=== PATIENT | male | born 1965 | race Caucasian/White ===

== ENCOUNTER 2016-08-06 21:11 | Inpatient (IN) | payer OTHER ==
[2016-08-06 22:00] VITALS: BMI 29.5
--- NOTE | 2016-08-06 22:04 | HP ---
CIWA Score - CIWA Score Nausea/Vomitin-Mild Nausea/No Vomiting Muscle Tremors: 3 Anxiety: 4-Mod. Anxious/Guarded Agitation: 4-Moderately Restless Paroxysmal Sweats: 2 Orientation: 1-Uncertain about Date Tacttile Disturbances: 2-Mild Itch/Numbness/Burn (B/L FINDERTIPS AND FEET) Auditory Disturbances: 1-Very Mild Visual Disturbances: 1-Very Mild Sensitivity Headache: 2-Mild CIWA-Ar Total Score: 21 Admission ROS S - HPI Chief Complaint: WITHDRAWAL SYMPTOMS Allergies/Adverse Reactions: Allergies Allergy/AdvReac Type Severity Reaction Status Date / Time No Known Allergies Allergy Verified 08/06/16 21:57 History of Present Illness: 50 Y.O. WITH AN EXTENSIVE HISTORY OF ALCOHOL DEPENDENCE IS SEEKING DETOX. HE WAS LAST HERE FOR DETOX IN 11/2014. HE REPORTS HAVING A FOUR YEAR PERIOD OF SOBRIETY. Exam Limitations: Intoxication, Language Barrier - Ebola screening Have you traveled outside of the country in the last 21 days: No Have you had contact with anyone from an Ebola affected area: No Do you have a fever: No - Review of Systems Constitutional: Loss of Appetite, Night Sweats, Changes in sleep, Unexplained wgt Loss EENT: reports: Blurred Vision, Tearing Respiratory: reports: Shortness of Breath Cardiac: reports: Chest Pain GI: reports: No Symptoms Reported : reports: Frequency Musculoskeletal: reports: Back Pain, Muscle Pain, Joint Stiffness Integumentary: reports: Bruising (ABRASIONS TO RIGHT HAND AND RIGHT KNEE AND BRUISE TO LEFT KNEE) Neuro: reports: Headache, Tingling, Tremors, Unsteady Gait Endocrine: reports: No Symptoms Reported Hematology: reports: Anemia Psychiatric: reports: Mood/Affect Appropiate Other Systems: Reviewed and Negative Patient History - Patient Medical History Hx Anemia: No Hx Asthma: No Hx Chronic Obstructive Pulmonary Disease (COPD): No Hx Cancer: No Hx Cardiac Disorders: No Hx Congestive Heart Failure: No Hx Hypertension: Yes (no meds) Hx Hypercholesterolemia: No Hx Pacemaker: No HX Cerebrovascular Accident: No Hx Seizures: No Hx Dementia: No Hx Diabetes: Yes (currently not on treatment) Hx Gastrointestinal Disorders: No Hx Liver Disease: No Hx Genitourinary Disorders: No Hx Sexually Transmitted Disorders: No Hx Renal Disease (ESRD): No Hx Thyroid Disease: No Hx Human Immunodeficiency Virus (HIV): No (2008- neg) Hx Hepatitis C: No Hx Depression: No Hx Suicide Attempt: No Hx Bipolar Disorder: No Hx Schizophrenia: No - Patient Surgical History Past Surgical History: No Hx Neurologic Surgery: No Hx Cataract Extraction: No Hx Cardiac Surgery: No Hx Lung Surgery: No Hx Breast Surgery: No Hx Breast Biopsy: No Hx Abdominal Surgery: No Hx Appendectomy: No Hx Cholecystectomy: No Hx Genitourinary Surgery: No Hx Section: No Hx Orthopedic Surgery: No Hx Hysterectomy: No Anesthesia Reaction: No - PPD History Previous Implant?: Yes Documented Results: Negative w/proof Date: 11/23/14 Results: 0 mm PPD to be Administered?: Yes - Reproductive History Patient is a Female of Child Bearing Age (11 -55 yrs old): No - Smoking Cessation Smoking history: Never smoked Have you smoked in the past 12 months: No Aproximately how many cigarettes per day: 0 Cigars Per Day: 0 Hx Chewing Tobacco Use: No - Substance & Tx. History Hx Alcohol Use: Yes Hx Substance Use: No Substance Use Type: Alcohol Hx Substance Use Treatment: Yes (DETOX AND REHAB ) - Substances Abused Alcohol Route: Oral Frequency: Daily Amount used: 6 PACK OF 12OZ BEER Age of first use: 12 Date of Last Use: 08/06/16 Family Disease History - Family Disease History Family Disease History: Other: Father (ETOH DEPENDENCE ) Admission Physical Exam [facility] - Vital Signs Vital Signs: Last Vital Signs Temp Pulse Resp BP Pulse Ox 97.5 F L 90 17 112/60 08/06/16 21:58 08/06/16 21:58 08/06/16 21:58 08/06/16 21:58 - Physical General Appearance: Yes: Disheveled, Alcohol on Breath, Intoxicated, Anxious HEENTM: Yes: Normal Voice Respiratory: Yes: Chest Non-Tender, Lungs Clear, Normal Breath Sounds, No Respiratory Distress, No Accessory Muscle Use Neck: Yes: No masses,lesions,Nodules, Trachea in good position Breast: Yes: Breast Exam Deferred Cardiology: Yes: Regular Rhythm, Regular Rate Abdominal: Yes: Non Tender, Flat, Soft Genitourinary: Yes: Frequency Back: Yes: Normal Inspection Musculoskeletal: Yes: Joint Stiffness (RIGHT KNEE) Extremities: Yes: Tremors Neurological: Yes: Alert, Normal Response Integumentary: Yes: Other Lymphatic: Yes: Within Normal Limits - Diagnostic (1) DM Diabetes mellitus type 2 Current Visit: Yes Status: Chronic (2) HTN (hypertension) Current Visit: Yes Status: Chronic (3) Alcohol dependence with uncomplicated withdrawal Current Visit: Yes Status: Chronic (4) Knee abrasion Current Visit: Yes Status: Acute Qualifiers: Laterality: right (5) Hand abrasion Current Visit: Yes Status: Acute Qualifiers: Laterality: right Cleared for Admission S - Detox or Rehab S Level of Care: Medically Managed Detox Regimen/Protocol: Librium
[2016-08-06] MEDS ORDERED: ACETAMINOPHEN 325 MG TABLET (FP) PO PRN (22:21)
[2016-08-06] MEDS ORDERED: LOPERAMIDE HCL 2 MG CAPSULE PO PRN (22:21)
[2016-08-06] MEDS ORDERED: MENTHOL/PHENOL 1 EACH UD MM PRN (22:21)
[2016-08-06] MEDS ORDERED: P-EPHED 60MG/TRIPROLIDI 2.5MG TABLET PO PRN (22:21)
[2016-08-06] MEDS ORDERED: hydrOXYzine PAMOATE 50 MG CAPSULE (FP) PO PRN (22:21)
[2016-08-06] MEDS ORDERED: chlordiazePOXIDE HCL 25 MG CAPSULE PO PRN (22:21)
[2016-08-06] MEDS ORDERED: guaiFENesin/D-METHORPHAN HB 10 ML UNIT-DOSE CUPS PO PRN (22:21)
[2016-08-06] MEDS ORDERED: MAGNESIUM HYDROX 2400MG/30ML ORAL SUSPENSION 30 ML CUP PO PRN (22:21)
[2016-08-06] MEDS ORDERED: MAGNESIUM CITRATE 300 ML BOTTLE PO PRN (22:21)
[2016-08-06] MEDS ORDERED: IBUPROFEN 400 MG TABLET (FP) PO PRN (22:21)
[2016-08-06] MEDS ORDERED: MAG HYDROX/AL HYDROX/SIMETH 30 ML UNIT-DOSE CUP PO PRN (22:21)
[2016-08-06] MEDS ORDERED: chlordiazePOXIDE HCL 25 MG CAPSULE PO ONE (22:21)
[2016-08-06] MEDS: chlordiazePOXIDE HCL 25 MG CAPSULE PO SCH (22:50)
[2016-08-06] MEDS ORDERED: BACITRACIN 0.9 GM PACKET ONE (22:52)
[2016-08-06] MEDS: BACITRACIN 30 GM TUBE TOPICAL OINTMENT TP SCH (22:53)
[2016-08-07] MEDS: chlordiazePOXIDE HCL 25 MG CAPSULE PO SCH ×4 (05:47→22:14)
[2016-08-07] MEDS ORDERED: INSULIN (NOVOLOG) ASPART 100 UNITS/ML 10ML VIAL ONE ×2 (06:36→16:58)
[2016-08-07] MEDS: metFORMIN HCL 500 MG TABLET (FP) PO SCH ×2 (06:51→17:17)
[2016-08-07] MEDS: INSULIN SLIDING SCALE (NOVOLOG) 1 VIAL SQ SCH ×2 (06:52→17:17)
[2016-08-07] MEDS: PRENATAL VITAMINS W/ FOLIC ACID TABLET (FP) PO SCH (10:06)
[2016-08-07] MEDS: BACITRACIN 30 GM TUBE TOPICAL OINTMENT TP SCH ×2 (10:06→23:13)
[2016-08-07] MEDS: ENALAPRIL MALEATE 5 MG TABLET (FP) PO SCH (10:06)
--- NOTE | 2016-08-07 10:45 | PN ---
S CIWA - CIWA Score Nausea/Vomitin-No Nausea/No Vomiting Muscle Tremors: 5 Anxiety: 4-Mod. Anxious/Guarded Agitation: 4-Moderately Restless Paroxysmal Sweats: 1-Minimal Palms Moist Orientation: 0-Oriented Tacttile Disturbances: 3-Moderate Itch/Numb/Burn Auditory Disturbances: 0-None Visual Disturbances: 0-None Headache: 0-None Present CIWA-Ar Total Score: 17 BHS Progress Note (SOAP) Subjective: TREMORS,SWEATS,INTERMITTENT SLEEP Objective: 08/07/16 10:44 Vital Signs Temperature 97.7 F 08/07/16 09:58 Pulse Rate 101 H 08/07/16 09:58 Respiratory Rate 18 08/07/16 09:58 Blood Pressure 130/73 08/07/16 09:58 O2 Sat by Pulse Oximetry (%) Laboratory Last Values POC Glucometer 255 UNITS (()) 08/07/16 05:49 LABS PENDING. Assessment: 08/07/16 10:45 WITHDRAWAL SX Plan: CONTINUE DETOX
--- NOTE | 2016-08-07 11:24 | EKG ---
Test Reason : Blood Pressure : / mmHG Vent. Rate : 074 BPM Atrial Rate : 074 BPM P-R Int : 168 ms QRS Dur : 102 ms QT Int : 410 ms P-R-T Axes : 004 053 017 degrees QTc Int : 455 ms NORMAL SINUS RHYTHM NON-SPECIFIC INTRA-VENTRICULAR CONDUCTION DELAY Confirmed by EDA WONG MD ([id number]) on 08/07/2016 11:23:38 AM Referred By: Confirmed By:EDA WONG MD
[2016-08-07 11:31] LABS: MCH 29.3 pg (25.7-33.7); MCHC 32.6 g/dl (32.0-35.9); MEAN CELL VOLUME 89.9 fl (80-96); MEAN PLT VOLUME 9.4 fl (7.5-11.1); RDW 17.9 % (11.9-15.9); WHITE BLOOD COUNT 5.8 K/mm3 (4.0-10.0)
[2016-08-07 11:35] LABS: PLATELET COUNT 36 K/MM3 (134-434)
[2016-08-07 11:53] LABS: ALBUMIN 2.7 g/dl (3.4-5.0); ALK PHOS 325 U/L (45-117); ANION GAP 11 (8-16); CALCIUM 7.8 mg/dL (8.5-10.1); CO2 25 mmol/L (21-32); COCKROFT - GAULT 190.71; CREATININE 0.5 mg/dL (0.7-1.3); GLUCOSE,RANDOM 172 mg/dL (74-106); SGOT/AST 141 U/L (15-37); SGPT/ALT 50 U/L (12-78); TOT PROT 7.7 g/dl (6.4-8.2)
[2016-08-07] MEDS: THIAMINE HCL 100 MG TABLET (FP) PO SCH (22:14)
[2016-08-08] MEDS: chlordiazePOXIDE HCL 25 MG CAPSULE PO SCH ×3 (05:20→17:27)
[2016-08-08] MEDS: metFORMIN HCL 500 MG TABLET (FP) PO SCH ×2 (06:11→17:27)
[2016-08-08] MEDS: INSULIN SLIDING SCALE (NOVOLOG) 1 VIAL SQ SCH ×2 (06:12→17:27)
[2016-08-08] MEDS ORDERED: INSULIN (NOVOLOG) ASPART 100 UNITS/ML 10ML VIAL ONE ×2 (06:15→17:04)
[2016-08-08] MEDS ORDERED: POTASSIUM CHLORIDE TABS 20 MEQ TABLET.ER (FP) PO ONE (07:14)
--- NOTE | 2016-08-08 07:22 | PN ---
[facility] Progress Note Note: Laboratory Last Values WBC 5.8 K/mm3 (4.0-10.0) D 08/07/16 07:00 RBC 4.16 M/mm3 (4.00-5.60) 08/07/16 07:00 Hgb 12.2 GM/dL (11.7-16.9) 08/07/16 07:00 Hct 37.4 % (35.4-49) 08/07/16 07:00 MCV 89.9 fl (80-96) 08/07/16 07:00 MCHC 32.6 g/dl (32.0-35.9) 08/07/16 07:00 RDW 17.9 % (11.9-15.9) H D 08/07/16 07:00 Plt Count 36 K/MM3 (134-434) L* D 08/07/16 07:00 MPV 9.4 fl (7.5-11.1) 08/07/16 07:00 Sodium 141 mmol/L (136-145) 08/07/16 07:00 Potassium 3.2 mmol/L (3.5-5.1) L 08/07/16 07:00 Chloride 105 mmol/L (98-107) 08/07/16 07:00 Carbon Dioxide 25 mmol/L (21-32) 08/07/16 07:00 Anion Gap 11 (8-16) 08/07/16 07:00 BUN 5 mg/dL (7-18) L D 08/07/16 07:00 Creatinine 0.5 mg/dL (0.7-1.3) L 08/07/16 07:00 Creat Clearance w eGFR > 60 (>60) 08/07/16 07:00 POC Glucometer 183 UNITS (()) 08/08/16 05:19 Random Glucose 172 mg/dL (74-106) H D 08/07/16 07:00 Calcium 7.8 mg/dL (8.5-10.1) L 08/07/16 07:00 Total Bilirubin 1.0 mg/dL (0.2-1.0) D 08/07/16 07:00 AST 141 U/L (15-37) H 08/07/16 07:00 ALT 50 U/L (12-78) 08/07/16 07:00 Alkaline Phosphatase 325 U/L (45-117) H 08/07/16 07:00 Total Protein 7.7 g/dl (6.4-8.2) 08/07/16 07:00 Albumin 2.7 g/dl (3.4-5.0) L 08/07/16 07:00 RPR Titer Nonreactive (NONREACTIVE) 08/07/16 07:00 hypokalemia k 3.2,plaelet 36k,glucose 172,ast 141 k dur 20 meq po bid then bid.repeat cbc,cmp,inr today continue detox
[2016-08-08] MEDS ORDERED: BACITRACIN 0.9 GM PACKET ONE (08:22)
[2016-08-08] MEDS: PRENATAL VITAMINS W/ FOLIC ACID TABLET (FP) PO SCH (10:13)
[2016-08-08] MEDS: ENALAPRIL MALEATE 5 MG TABLET (FP) PO SCH (10:13)
[2016-08-08] MEDS: BACITRACIN 30 GM TUBE TOPICAL OINTMENT TP SCH ×2 (10:14→22:15)
[2016-08-08] MEDS: POTASSIUM CHLORIDE TABS 20 MEQ TABLET.ER (FP) PO SCH ×2 (10:14→22:15)
[2016-08-08 10:24] LABS: MCH 29.5 pg (25.7-33.7); MCHC 33.1 g/dl (32.0-35.9); MEAN CELL VOLUME 89.1 fl (80-96); MEAN PLT VOLUME 9.6 fl (7.5-11.1); RDW 17.3 % (11.9-15.9); WHITE BLOOD COUNT 6.7 K/mm3 (4.0-10.0)
[2016-08-08 10:41] LABS: INR 1.22 (0.82-1.09); PROTHROMBIN TIME (PATIENT) 13.5 SEC (9.98-11.88)
[2016-08-08 10:50] LABS: PLATELET COUNT 32 K/MM3 (134-434)
[2016-08-08 11:24] LABS: ALBUMIN 2.8 g/dl (3.4-5.0); ALK PHOS 333 U/L (45-117); ANION GAP 9 (8-16); BILIRUBIN,TOTAL 2.7 mg/dL (0.2-1.0); CALCIUM 8.5 mg/dL (8.5-10.1); CO2 25 mmol/L (21-32); COCKROFT - GAULT 190.71; CREATININE 0.5 mg/dL (0.7-1.3); GLUCOSE,RANDOM 185 mg/dL (74-106); SGOT/AST 165 U/L (15-37); SGPT/ALT 56 U/L (12-78); TOT PROT 8.2 g/dl (6.4-8.2)
--- NOTE | 2016-08-08 13:08 | PN ---
S CIWA - CIWA Score Nausea/Vomitin Muscle Tremors: 3 Anxiety: 2 Agitation: 2 Paroxysmal Sweats: 2 Orientation: 0-Oriented Tacttile Disturbances: 1-Very Mild Itch/Numbness Auditory Disturbances: 0-None Visual Disturbances: 1-Very Mild Sensitivity Headache: 2-Mild CIWA-Ar Total Score: 15 S Progress Note (SOAP) Subjective: shakes, sweats, sleep interruption Objective: 08/08/16 13:04 Vital Signs - 8 hr 08/08/16 08/08/16 06:45 09:45 Temperature 98.4 F 96.4 F L Pulse Rate 95 H 111 H Respiratory 16 18 Rate Blood Pressure 130/83 118/79 Laboratory Last Values WBC 6.7 K/mm3 (4.0-10.0) 08/08/16 07:50 RBC 4.55 M/mm3 (4.00-5.60) 08/08/16 07:50 Hgb 13.4 GM/dL (11.7-16.9) 08/08/16 07:50 Hct 40.5 % (35.4-49) 08/08/16 07:50 MCV 89.1 fl (80-96) 08/08/16 07:50 MCHC 33.1 g/dl (32.0-35.9) 08/08/16 07:50 RDW 17.3 % (11.9-15.9) H 08/08/16 07:50 Plt Count 32 K/MM3 (134-434) L* 08/08/16 07:50 MPV 9.6 fl (7.5-11.1) 08/08/16 07:50 INR 1.22 (0.82-1.09) H 08/08/16 07:50 Sodium 135 mmol/L (136-145) L 08/08/16 07:50 Potassium 3.7 mmol/L (3.5-5.1) 08/08/16 07:50 Chloride 101 mmol/L (98-107) 08/08/16 07:50 Carbon Dioxide 25 mmol/L (21-32) 08/08/16 07:50 Anion Gap 9 (8-16) 08/08/16 07:50 BUN 7 mg/dL (7-18) D 08/08/16 07:50 Creatinine 0.5 mg/dL (0.7-1.3) L 08/08/16 07:50 Creat Clearance w eGFR > 60 (>60) 08/08/16 07:50 POC Glucometer 183 UNITS (()) 08/08/16 05:19 Random Glucose 185 mg/dL (74-106) H 08/08/16 07:50 Calcium 8.5 mg/dL (8.5-10.1) 08/08/16 07:50 Total Bilirubin 2.7 mg/dL (0.2-1.0) H D 08/08/16 07:50 AST 165 U/L (15-37) H 08/08/16 07:50 ALT 56 U/L (12-78) 08/08/16 07:50 Alkaline Phosphatase 333 U/L (45-117) H 08/08/16 07:50 Total Protein 8.2 g/dl (6.4-8.2) 08/08/16 07:50 Albumin 2.8 g/dl (3.4-5.0) L 08/08/16 07:50 RPR Titer Nonreactive (NONREACTIVE) 08/07/16 07:00 Labs noted, platelets decreased but not critically, no signs and symptoms of bleeding, VSS Assessment: 08/08/16 13:05 withdrawal sx possible ITP Plan: continue detox monitor for bleeding, f/u with PCP upon discharge, transfer to ED if bleeding occurs
[2016-08-08] MEDS: THIAMINE HCL 100 MG TABLET (FP) PO SCH (22:15)
[2016-08-08] MEDS: chlordiazePOXIDE 5 MG CAPSULE PO SCH (22:16)
[2016-08-08] MEDS: diphenhydrAMINE HCL 50 MG CAPSULE PO PRN (22:17)
[2016-08-09] MEDS: chlordiazePOXIDE 5 MG CAPSULE PO SCH ×3 (05:57→17:21)
[2016-08-09] MEDS: metFORMIN HCL 500 MG TABLET (FP) PO SCH ×2 (07:24→17:21)
[2016-08-09] MEDS ORDERED: INSULIN (NOVOLOG) ASPART 100 UNITS/ML 10ML VIAL ONE ×2 (07:27→17:02)
[2016-08-09] MEDS: INSULIN SLIDING SCALE (NOVOLOG) 1 VIAL SQ SCH ×2 (07:29→17:21)
[2016-08-09] MEDS: BACITRACIN 30 GM TUBE TOPICAL OINTMENT TP SCH ×2 (10:13→22:26)
[2016-08-09] MEDS: PRENATAL VITAMINS W/ FOLIC ACID TABLET (FP) PO SCH (10:13)
[2016-08-09] MEDS: POTASSIUM CHLORIDE TABS 20 MEQ TABLET.ER (FP) PO SCH ×2 (10:13→22:26)
[2016-08-09] MEDS: ENALAPRIL MALEATE 5 MG TABLET (FP) PO SCH (10:13)
--- NOTE | 2016-08-09 15:41 | PN ---
S Progress Note (SOAP) Subjective: Diarrhea, sweating, anxious, interrupted sleep Objective: 08/09/16 15:37 Last Vital Signs Temp Pulse Resp BP Pulse Ox 96.5 F L 107 H 18 112/74 08/09/16 13:22 08/09/16 13:22 08/09/16 13:22 08/09/16 13:22 Laboratory Tests 08/06/16 08/07/16 08/07/16 21:53 05:49 07:00 WBC 5.8 D RBC 4.16 Hgb 12.2 Hct 37.4 MCV 89.9 MCHC 32.6 RDW 17.9 H D Plt Count 36 L* D MPV 9.4 INR Sodium Potassium Chloride Carbon Dioxide Anion Gap BUN Creatinine Creat Clearance w eGFR POC Glucometer 326 255 Random Glucose Calcium Total Bilirubin AST ALT Alkaline Phosphatase Total Protein Albumin RPR Titer 08/07/16 08/07/16 08/07/16 07:00 07:00 16:22 WBC RBC Hgb Hct MCV MCHC RDW Plt Count MPV INR Sodium 141 Potassium 3.2 L Chloride 105 Carbon Dioxide 25 Anion Gap 11 BUN 5 L D Creatinine 0.5 L Creat Clearance w eGFR > 60 POC Glucometer 213 Random Glucose 172 H D Calcium 7.8 L Total Bilirubin 1.0 D AST 141 H ALT 50 Alkaline Phosphatase 325 H Total Protein 7.7 Albumin 2.7 L RPR Titer Nonreactive 08/08/16 08/08/16 08/08/16 05:19 07:50 07:50 WBC 6.7 RBC 4.55 Hgb 13.4 Hct 40.5 MCV 89.1 MCHC 33.1 RDW 17.3 H Plt Count 32 L* MPV 9.6 INR 1.22 H Sodium Potassium Chloride Carbon Dioxide Anion Gap BUN Creatinine Creat Clearance w eGFR POC Glucometer 183 Random Glucose Calcium Total Bilirubin AST ALT Alkaline Phosphatase Total Protein Albumin RPR Titer 08/08/16 08/08/16 08/09/16 07:50 16:25 05:56 WBC RBC Hgb Hct MCV MCHC RDW Plt Count MPV INR Sodium 135 L Potassium 3.7 Chloride 101 Carbon Dioxide 25 Anion Gap 9 BUN 7 D Creatinine 0.5 L Creat Clearance w eGFR > 60 POC Glucometer 272 169 Random Glucose 185 H Calcium 8.5 Total Bilirubin 2.7 H D AST 165 H ALT 56 Alkaline Phosphatase 333 H Total Protein 8.2 Albumin 2.8 L RPR Titer Labs reviewed: platelets 32 was 36 Assessment: 08/09/16 15:38 Withdrawal symptoms Noted with thrombocytopenia Plan: Continue detox Thrombocytopenia: monitor for bruising/bleeding, follow up with PCP or [employer] for monitoring/management
[2016-08-09 19:38] LABS: URINE APPEARANCE CLEAR; URINE BILIRUBIN NEGATIVE (NEGATIVE); URINE BLOOD 2+ (NEGATIVE); URINE COLOR AMBER; URINE GLUCOSE (UA) 3+ (NEGATIVE); URINE KETONE NEGATIVE (NEGATIVE); URINE LEUK ESTERASE NEGATIVE (NEGATIVE); URINE NITRITE NEGATIVE (NEGATIVE); URINE PROTEIN NEGATIVE (NEGATIVE); URINE UROBILINOGEN 2.0 E.U/dl E.U./dl (0.2-1.0)
[2016-08-09 19:54] LABS: URINE MUCUS RARE; URINE RBC 19 /hpf (0-3); URINE WBC 2 /hpf (3-5); YEAST RARE
[2016-08-09] MEDS: chlordiazePOXIDE HCL 10 MG CAPSULE PO SCH (22:26)
[2016-08-09] MEDS: THIAMINE HCL 100 MG TABLET (FP) PO SCH (22:26)
[2016-08-10] MEDS: chlordiazePOXIDE HCL 10 MG CAPSULE PO SCH ×3 (06:08→17:24)
[2016-08-10] MEDS ORDERED: INSULIN (NOVOLOG) ASPART 100 UNITS/ML 10ML VIAL ONE ×2 (07:36→16:40)
[2016-08-10] MEDS: metFORMIN HCL 500 MG TABLET (FP) PO SCH ×2 (07:41→17:23)
[2016-08-10] MEDS: INSULIN SLIDING SCALE (NOVOLOG) 1 VIAL SQ SCH ×2 (07:41→17:24)
[2016-08-10] MEDS: POTASSIUM CHLORIDE TABS 20 MEQ TABLET.ER (FP) PO SCH ×2 (10:09→21:36)
[2016-08-10] MEDS: BACITRACIN 30 GM TUBE TOPICAL OINTMENT TP SCH ×2 (10:09→21:37)
[2016-08-10] MEDS: ENALAPRIL MALEATE 5 MG TABLET (FP) PO SCH (10:09)
[2016-08-10] MEDS: PRENATAL VITAMINS W/ FOLIC ACID TABLET (FP) PO SCH (10:09)
--- NOTE | 2016-08-10 15:29 | PN ---
[facility] Progress Note (SOAP) Subjective: Sweating,interrupted sleep,restless Objective: 08/10/16 15:28 Vital Signs - 8 hr 08/10/16 14:03 Temperature 96.0 F L Pulse Rate 92 H Respiratory 20 Rate Blood Pressure 106/66 Laboratory Last Values WBC 6.7 K/mm3 (4.0-10.0) 08/08/16 07:50 RBC 4.55 M/mm3 (4.00-5.60) 08/08/16 07:50 Hgb 13.4 GM/dL (11.7-16.9) 08/08/16 07:50 Hct 40.5 % (35.4-49) 08/08/16 07:50 MCV 89.1 fl (80-96) 08/08/16 07:50 MCHC 33.1 g/dl (32.0-35.9) 08/08/16 07:50 RDW 17.3 % (11.9-15.9) H 08/08/16 07:50 Plt Count 32 K/MM3 (134-434) L* 08/08/16 07:50 MPV 9.6 fl (7.5-11.1) 08/08/16 07:50 INR 1.22 (0.82-1.09) H 08/08/16 07:50 Sodium 135 mmol/L (136-145) L 08/08/16 07:50 Potassium 3.7 mmol/L (3.5-5.1) 08/08/16 07:50 Chloride 101 mmol/L (98-107) 08/08/16 07:50 Carbon Dioxide 25 mmol/L (21-32) 08/08/16 07:50 Anion Gap 9 (8-16) 08/08/16 07:50 BUN 7 mg/dL (7-18) D 08/08/16 07:50 Creatinine 0.5 mg/dL (0.7-1.3) L 08/08/16 07:50 Creat Clearance w eGFR > 60 (>60) 08/08/16 07:50 POC Glucometer 186 UNITS (()) 08/10/16 06:02 Random Glucose 185 mg/dL (74-106) H 08/08/16 07:50 Calcium 8.5 mg/dL (8.5-10.1) 08/08/16 07:50 Total Bilirubin 2.7 mg/dL (0.2-1.0) H D 08/08/16 07:50 AST 165 U/L (15-37) H 08/08/16 07:50 ALT 56 U/L (12-78) 08/08/16 07:50 Alkaline Phosphatase 333 U/L (45-117) H 08/08/16 07:50 Total Protein 8.2 g/dl (6.4-8.2) 08/08/16 07:50 Albumin 2.8 g/dl (3.4-5.0) L 08/08/16 07:50 Urine Color [place] 08/09/16 14:25 Urine Appearance Clear 08/09/16 14:25 Urine pH 5.0 (5.0-8.0) D 08/09/16 14:25 Ur Specific [place] 1.029 (1.001-1.035) 08/09/16 14:25 Urine Protein Negative (NEGATIVE) 08/09/16 14:25 Urine Glucose (UA) 3+ (NEGATIVE) H 08/09/16 14:25 Urine Ketones Negative (NEGATIVE) 08/09/16 14:25 Urine Blood 2+ (NEGATIVE) H 08/09/16 14:25 Urine Nitrite Negative (NEGATIVE) 08/09/16 14:25 Urine Bilirubin Negative (NEGATIVE) 08/09/16 14:25 Urine Urobilinogen 2.0 e.u/dl E.U./dl (0.2-1.0) 08/09/16 14:25 Ur Leukocyte Esterase Negative (NEGATIVE) 08/09/16 14:25 Urine RBC 19 /hpf (0-3) 08/09/16 14:25 Urine WBC 2 /hpf (3-5) 08/09/16 14:25 Ur Epithelial Cells Rare /hpf (FEW) 08/09/16 14:25 Urine Mucus Rare 08/09/16 14:25 Urine Yeast Rare 08/09/16 14:25 RPR Titer Nonreactive (NONREACTIVE) 08/07/16 07:00 labs noted Assessment: 08/10/16 15:29 Withdrawal sx. Plan: Continue detox
[2016-08-10] MEDS: THIAMINE HCL 100 MG TABLET (FP) PO SCH (21:36)
[2016-08-10] MEDS: diphenhydrAMINE HCL 50 MG CAPSULE PO PRN (21:36)
[2016-08-11] MEDS: metFORMIN HCL 500 MG TABLET (FP) PO SCH (06:04)
[2016-08-11 06:29] VITALS: BP 106/68; PULSE 106; TEMP 98.9
[2016-08-11] MEDS: INSULIN SLIDING SCALE (NOVOLOG) 1 VIAL SQ SCH (07:30)
--- NOTE | 2016-08-11 10:05 | DS ---
[facility] Detox Discharge Summary Admission Date: 08/06/16 Discharge Date: 08/11/16 - History Present History: Alcohol Dependence Additional Comments: DETOX COMPLETED. ALERT O X 3. NAD. Pertinent Past History: HTN DM - Physical Exam Results Vital Signs: Vital Signs Temperature 98.9 F 08/11/16 06:29 Pulse Rate 106 H 08/11/16 06:29 Respiratory Rate 18 08/11/16 06:29 Blood Pressure 106/68 08/11/16 06:29 O2 Sat by Pulse Oximetry (%) Pertinent Admission Physical Exam Findings: WITHDRAWAL SX Laboratory Last Values WBC 6.7 K/mm3 (4.0-10.0) 08/08/16 07:50 RBC 4.55 M/mm3 (4.00-5.60) 08/08/16 07:50 Hgb 13.4 GM/dL (11.7-16.9) 08/08/16 07:50 Hct 40.5 % (35.4-49) 08/08/16 07:50 MCV 89.1 fl (80-96) 08/08/16 07:50 MCHC 33.1 g/dl (32.0-35.9) 08/08/16 07:50 RDW 17.3 % (11.9-15.9) H 08/08/16 07:50 Plt Count 32 K/MM3 (134-434) L* 08/08/16 07:50 MPV 9.6 fl (7.5-11.1) 08/08/16 07:50 INR 1.22 (0.82-1.09) H 08/08/16 07:50 Sodium 135 mmol/L (136-145) L 08/08/16 07:50 Potassium 3.7 mmol/L (3.5-5.1) 08/08/16 07:50 Chloride 101 mmol/L (98-107) 08/08/16 07:50 Carbon Dioxide 25 mmol/L (21-32) 08/08/16 07:50 Anion Gap 9 (8-16) 08/08/16 07:50 BUN 7 mg/dL (7-18) D 08/08/16 07:50 Creatinine 0.5 mg/dL (0.7-1.3) L 08/08/16 07:50 Creat Clearance w eGFR > 60 (>60) 08/08/16 07:50 POC Glucometer 278 UNITS (()) 08/11/16 05:43 Random Glucose 185 mg/dL (74-106) H 08/08/16 07:50 Calcium 8.5 mg/dL (8.5-10.1) 08/08/16 07:50 Total Bilirubin 2.7 mg/dL (0.2-1.0) H D 08/08/16 07:50 AST 165 U/L (15-37) H 08/08/16 07:50 ALT 56 U/L (12-78) 08/08/16 07:50 Alkaline Phosphatase 333 U/L (45-117) H 08/08/16 07:50 Total Protein 8.2 g/dl (6.4-8.2) 08/08/16 07:50 Albumin 2.8 g/dl (3.4-5.0) L 08/08/16 07:50 Urine Color [place] 08/09/16 14:25 Urine Appearance Clear 08/09/16 14:25 Urine pH 5.0 (5.0-8.0) D 08/09/16 14:25 Ur Specific [place] 1.029 (1.001-1.035) 08/09/16 14:25 Urine Protein Negative (NEGATIVE) 08/09/16 14:25 Urine Glucose (UA) 3+ (NEGATIVE) H 08/09/16 14:25 Urine Ketones Negative (NEGATIVE) 08/09/16 14:25 Urine Blood 2+ (NEGATIVE) H 08/09/16 14:25 Urine Nitrite Negative (NEGATIVE) 08/09/16 14:25 Urine Bilirubin Negative (NEGATIVE) 08/09/16 14:25 Urine Urobilinogen 2.0 e.u/dl E.U./dl (0.2-1.0) 08/09/16 14:25 Ur Leukocyte Esterase Negative (NEGATIVE) 08/09/16 14:25 Urine RBC 19 /hpf (0-3) 08/09/16 14:25 Urine WBC 2 /hpf (3-5) 08/09/16 14:25 Ur Epithelial Cells Rare /hpf (FEW) 08/09/16 14:25 Urine Mucus Rare 08/09/16 14:25 Urine Yeast Rare 08/09/16 14:25 RPR Titer Nonreactive (NONREACTIVE) 08/07/16 07:00 - Treatment Hospital Course: Detox Protocol Followed, Detoxed Safely, Responded well, Discharged Condition Good, Rehab Referral Accepted Patient has Accepted a Rehab Referral to: [address] - Medication Discharge Medications: Ambulatory Orders Enalapril Maleate [Vasotec -] 5 mg PO DAILY #30 tablet 11/26/14 Metformin HCl [Glucophage -] 1,000 mg PO BID@0700,1630 #60 tablet 11/26/14 - Diagnosis (1) Alcohol dependence with uncomplicated withdrawal Current Visit: Yes Status: Acute (2) DM Diabetes mellitus type 2 Current Visit: Yes Status: Chronic (3) HTN (hypertension) Current Visit: Yes Status: Chronic - AMA Did Patient Leave Against Medical Advice: No
[2016-08-11] MEDS: POTASSIUM CHLORIDE TABS 20 MEQ TABLET.ER (FP) PO SCH (10:31)
[2016-08-11] MEDS: PRENATAL VITAMINS W/ FOLIC ACID TABLET (FP) PO SCH (10:31)
[2016-08-11] MEDS: BACITRACIN 30 GM TUBE TOPICAL OINTMENT TP SCH (10:31)
[2016-08-11] MEDS: ENALAPRIL MALEATE 5 MG TABLET (FP) PO SCH (10:31)
== END 2016-08-11 11:09 | disposition other institution (70) | DRG 775 ==
LOC: YASAS 21:11 → Y3N 22:24
PROVIDERS: ADMIT Internal Medicine; ATTEND Internal Medicine
PROC: HZ2ZZZZ Detoxification Services for Substance Abuse Treatment (ICD-10-PCS; principal; 2016-08-11)
DX: F10.230 Alcohol dependence with withdrawal, uncomplicated (principal); I10 Essential (primary) hypertension; E11.9 Type 2 diabetes mellitus without complications; Z79.84 Long term (current) use of oral hypoglycemic drugs; S60.511A Abrasion of right hand, initial encounter; S80.211A Abrasion, right knee, initial encounter; X58.XXXA Exposure to other specified factors, initial encounter; Y93.9 Activity, unspecified
CPT/HCPCS: 36415; 80053; 81003; 81015; 85027; 85610; 86593; 93005; 93010

== ENCOUNTER 2016-08-11 11:27 | Inpatient (IN) | payer OTHER ==
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
[2016-08-11 12:22] VITALS: BMI 28.6
[2016-08-11] MEDS ORDERED: MAGNESIUM CITRATE 300 ML BOTTLE PO PRN (13:22)
[2016-08-11] MEDS ORDERED: LOPERAMIDE HCL 2 MG CAPSULE PO PRN (13:22)
[2016-08-11] MEDS ORDERED: guaiFENesin/D-METHORPHAN HB 10 ML UNIT-DOSE CUPS PO PRN (13:22)
[2016-08-11] MEDS ORDERED: ACETAMINOPHEN 325 MG TABLET (FP) PO PRN (13:22)
[2016-08-11] MEDS ORDERED: MENTHOL/PHENOL 1 EACH UD MM PRN (13:22)
[2016-08-11] MEDS ORDERED: MAG HYDROX/AL HYDROX/SIMETH 30 ML UNIT-DOSE CUP PO PRN (13:22)
[2016-08-11] MEDS ORDERED: P-EPHED 60MG/TRIPROLIDI 2.5MG TABLET PO PRN (13:22)
[2016-08-11] MEDS ORDERED: IBUPROFEN 400 MG TABLET (FP) PO PRN (13:22)
[2016-08-11] MEDS ORDERED: MAGNESIUM HYDROX 2400MG/30ML ORAL SUSPENSION 30 ML CUP PO PRN (13:22)
[2016-08-11] MEDS: metFORMIN HCL 500 MG TABLET (FP) PO SCH (16:48)
[2016-08-11] MEDS ORDERED: INSULIN (NOVOLOG) ASPART 100 UNITS/ML 10ML VIAL ONE (16:48)
[2016-08-11] MEDS: INSULIN SLIDING SCALE (NOVOLOG) 1 VIAL SQ SCH (16:51)
--- NOTE | 2016-08-11 16:53 | HP ---
[facility] Rehab Assess/Revision - Admission History Admitted to Rehab from: [facility] Date of Admission to Rehab: 08/11/16 - Vital signs Vital Signs: Vital Signs Period Temp Pulse Resp BP Sys/[place] Pulse Ox Last 24 Hr 96.8 F 90 18 101/67 - Findings Detox History & Physical reviewed: Yes Concur with findings: Yes Comments/Additional Findings: transferred from detox to rehab admission as per protocol
[2016-08-11] MEDS: THIAMINE HCL 100 MG TABLET (FP) PO SCH (21:49)
[2016-08-11] MEDS: BACITRACIN 0.9 GM PACKET TP SCH (21:50)
[2016-08-12] MEDS: metFORMIN HCL 500 MG TABLET (FP) PO SCH ×2 (07:02→16:50)
[2016-08-12] MEDS: INSULIN SLIDING SCALE (NOVOLOG) 1 VIAL SQ SCH ×2 (07:03→16:51)
[2016-08-12] MEDS ORDERED: INSULIN (NOVOLOG) ASPART 100 UNITS/ML 10ML VIAL ONE ×2 (07:04→16:55)
[2016-08-12] MEDS ORDERED: PT OWN MED DRAWER 7, Y5N ONE (08:42)
[2016-08-12] MEDS: BACITRACIN 0.9 GM PACKET TP SCH ×2 (09:44→21:25)
[2016-08-12] MEDS: PRENATAL VITAMINS W/ FOLIC ACID TABLET (FP) PO SCH (09:44)
[2016-08-12] MEDS: ENALAPRIL MALEATE 5 MG TABLET (FP) PO SCH (09:44)
[2016-08-12] MEDS: THIAMINE HCL 100 MG TABLET (FP) PO SCH (21:25)
[2016-08-12 21:50] LABS: HIV 1 & 2 AB NEGATIVE; HIV 1 AGp24 NEGATIVE
[2016-08-13] MEDS: diphenhydrAMINE HCL 50 MG CAPSULE PO PRN ×3 (01:44→22:36)
[2016-08-13] MEDS: metFORMIN HCL 500 MG TABLET (FP) PO SCH ×2 (06:20→16:42)
[2016-08-13] MEDS: INSULIN SLIDING SCALE (NOVOLOG) 1 VIAL SQ SCH ×2 (06:20→16:43)
[2016-08-13] MEDS ORDERED: INSULIN (NOVOLOG) ASPART 100 UNITS/ML 10ML VIAL ONE ×2 (06:35→16:41)
[2016-08-13] MEDS ORDERED: PT OWN MED DRAWER 7, Y5N ONE (09:18)
[2016-08-13] MEDS: ENALAPRIL MALEATE 5 MG TABLET (FP) PO SCH (09:56)
[2016-08-13] MEDS: PRENATAL VITAMINS W/ FOLIC ACID TABLET (FP) PO SCH (09:56)
[2016-08-13] MEDS: BACITRACIN 0.9 GM PACKET TP SCH ×2 (09:57→21:13)
[2016-08-13] MEDS: THIAMINE HCL 100 MG TABLET (FP) PO SCH (21:13)
[2016-08-14] MEDS ORDERED: INSULIN (NOVOLOG) ASPART 100 UNITS/ML 10ML VIAL ONE ×2 (07:24→17:02)
[2016-08-14] MEDS: metFORMIN HCL 500 MG TABLET (FP) PO SCH ×2 (07:24→16:57)
[2016-08-14] MEDS: INSULIN SLIDING SCALE (NOVOLOG) 1 VIAL SQ SCH ×2 (07:24→16:58)
[2016-08-14] MEDS ORDERED: PT OWN MED DRAWER 7, Y5N ONE (09:16)
[2016-08-14] MEDS: ENALAPRIL MALEATE 5 MG TABLET (FP) PO SCH (09:47)
[2016-08-14] MEDS: PRENATAL VITAMINS W/ FOLIC ACID TABLET (FP) PO SCH (09:47)
[2016-08-14] MEDS: BACITRACIN 0.9 GM PACKET TP SCH ×2 (10:46→21:38)
[2016-08-14] MEDS: diphenhydrAMINE HCL 50 MG CAPSULE PO PRN ×2 (21:38→23:32)
[2016-08-14] MEDS: THIAMINE HCL 100 MG TABLET (FP) PO SCH (21:38)
[2016-08-15] MEDS ORDERED: INSULIN (NOVOLOG) ASPART 100 UNITS/ML 10ML VIAL ONE ×2 (06:18→16:56)
[2016-08-15] MEDS: metFORMIN HCL 500 MG TABLET (FP) PO SCH ×2 (07:06→16:51)
[2016-08-15] MEDS: INSULIN SLIDING SCALE (NOVOLOG) 1 VIAL SQ SCH ×2 (07:07→16:53)
[2016-08-15] MEDS ORDERED: PT OWN MED DRAWER 7, Y5N ONE (08:22)
[2016-08-15] MEDS: ENALAPRIL MALEATE 5 MG TABLET (FP) PO SCH (09:51)
[2016-08-15] MEDS: BACITRACIN 0.9 GM PACKET TP SCH ×2 (09:51→21:43)
[2016-08-15] MEDS: PRENATAL VITAMINS W/ FOLIC ACID TABLET (FP) PO SCH (09:51)
[2016-08-15] MEDS: diphenhydrAMINE HCL 50 MG CAPSULE PO PRN (21:42)
[2016-08-15] MEDS: THIAMINE HCL 100 MG TABLET (FP) PO SCH (21:42)
[2016-08-16] MEDS: diphenhydrAMINE HCL 50 MG CAPSULE PO PRN ×3 (00:01→23:46)
[2016-08-16] MEDS: metFORMIN HCL 500 MG TABLET (FP) PO SCH ×2 (07:09→16:52)
[2016-08-16] MEDS: INSULIN SLIDING SCALE (NOVOLOG) 1 VIAL SQ SCH ×2 (07:10→16:54)
[2016-08-16] MEDS ORDERED: PT OWN MED DRAWER 7, Y5N ONE (08:26)
[2016-08-16] MEDS: PRENATAL VITAMINS W/ FOLIC ACID TABLET (FP) PO SCH (09:46)
[2016-08-16] MEDS: ENALAPRIL MALEATE 5 MG TABLET (FP) PO SCH (09:46)
[2016-08-16] MEDS: BACITRACIN 0.9 GM PACKET TP SCH ×2 (09:46→21:26)
[2016-08-16] MEDS ORDERED: INSULIN (NOVOLOG) ASPART 100 UNITS/ML 10ML VIAL ONE (16:57)
[2016-08-16] MEDS: THIAMINE HCL 100 MG TABLET (FP) PO SCH (21:26)
[2016-08-17] MEDS: metFORMIN HCL 500 MG TABLET (FP) PO SCH ×2 (06:12→16:53)
[2016-08-17] MEDS ORDERED: INSULIN (NOVOLOG) ASPART 100 UNITS/ML 10ML VIAL ONE ×2 (06:34→17:00)
[2016-08-17] MEDS: INSULIN SLIDING SCALE (NOVOLOG) 1 VIAL SQ SCH ×2 (06:52→16:56)
[2016-08-17] MEDS ORDERED: PT OWN MED DRAWER 7, Y5N ONE (08:41)
[2016-08-17] MEDS: PRENATAL VITAMINS W/ FOLIC ACID TABLET (FP) PO SCH (10:14)
[2016-08-17] MEDS: BACITRACIN 0.9 GM PACKET TP SCH ×2 (10:14→22:11)
[2016-08-17] MEDS: ENALAPRIL MALEATE 5 MG TABLET (FP) PO SCH (10:14)
[2016-08-17] MEDS: diphenhydrAMINE HCL 50 MG CAPSULE PO PRN (22:11)
[2016-08-17] MEDS: THIAMINE HCL 100 MG TABLET (FP) PO SCH (22:11)
[2016-08-18] MEDS: diphenhydrAMINE HCL 50 MG CAPSULE PO PRN ×2 (00:09→23:39)
[2016-08-18] MEDS: INSULIN SLIDING SCALE (NOVOLOG) 1 VIAL SQ SCH ×2 (06:38→16:48)
[2016-08-18] MEDS: metFORMIN HCL 500 MG TABLET (FP) PO SCH ×2 (06:38→16:47)
[2016-08-18] MEDS: ENALAPRIL MALEATE 5 MG TABLET (FP) PO SCH (09:49)
[2016-08-18] MEDS: PRENATAL VITAMINS W/ FOLIC ACID TABLET (FP) PO SCH (09:49)
[2016-08-18] MEDS: BACITRACIN 0.9 GM PACKET TP SCH ×2 (09:49→21:38)
[2016-08-18] MEDS ORDERED: INSULIN (NOVOLOG) ASPART 100 UNITS/ML 10ML VIAL ONE (16:46)
[2016-08-18] MEDS: THIAMINE HCL 100 MG TABLET (FP) PO SCH (21:39)
[2016-08-19] MEDS: INSULIN SLIDING SCALE (NOVOLOG) 1 VIAL SQ SCH ×2 (06:19→16:39)
[2016-08-19] MEDS: metFORMIN HCL 500 MG TABLET (FP) PO SCH ×2 (06:19→16:38)
[2016-08-19] MEDS: BACITRACIN 0.9 GM PACKET TP SCH ×2 (09:42→22:56)
[2016-08-19] MEDS: PRENATAL VITAMINS W/ FOLIC ACID TABLET (FP) PO SCH (09:42)
[2016-08-19] MEDS: ENALAPRIL MALEATE 5 MG TABLET (FP) PO SCH (09:43)
[2016-08-19] MEDS ORDERED: INSULIN (NOVOLOG) ASPART 100 UNITS/ML 10ML VIAL ONE (16:38)
[2016-08-19] MEDS: THIAMINE HCL 100 MG TABLET (FP) PO SCH (21:35)
[2016-08-19] MEDS: diphenhydrAMINE HCL 50 MG CAPSULE PO PRN (23:22)
[2016-08-20] MEDS: metFORMIN HCL 500 MG TABLET (FP) PO SCH ×2 (06:22→16:30)
[2016-08-20] MEDS: INSULIN SLIDING SCALE (NOVOLOG) 1 VIAL SQ SCH ×2 (06:24→16:31)
[2016-08-20] MEDS ORDERED: INSULIN (NOVOLOG) ASPART 100 UNITS/ML 10ML VIAL ONE ×2 (06:48→16:29)
[2016-08-20] MEDS: ENALAPRIL MALEATE 5 MG TABLET (FP) PO SCH (09:49)
[2016-08-20] MEDS: PRENATAL VITAMINS W/ FOLIC ACID TABLET (FP) PO SCH (09:49)
[2016-08-20] MEDS: BACITRACIN 0.9 GM PACKET TP SCH ×2 (09:49→22:38)
[2016-08-20] MEDS: THIAMINE HCL 100 MG TABLET (FP) PO SCH (22:18)
[2016-08-20] MEDS: diphenhydrAMINE HCL 50 MG CAPSULE PO PRN (23:32)
[2016-08-21] MEDS: metFORMIN HCL 500 MG TABLET (FP) PO SCH ×2 (06:14→16:55)
[2016-08-21] MEDS: INSULIN SLIDING SCALE (NOVOLOG) 1 VIAL SQ SCH ×2 (06:15→16:56)
[2016-08-21] MEDS ORDERED: PT OWN MED DRAWER 7, Y5N ONE (08:37)
[2016-08-21] MEDS: PRENATAL VITAMINS W/ FOLIC ACID TABLET (FP) PO SCH (09:51)
[2016-08-21] MEDS: BACITRACIN 0.9 GM PACKET TP SCH ×2 (09:52→21:47)
[2016-08-21] MEDS: ENALAPRIL MALEATE 5 MG TABLET (FP) PO SCH (09:55)
[2016-08-21] MEDS: LIDOCAINE 5% TOPICAL PATCH TP SCH (16:35)
[2016-08-21] MEDS ORDERED: INSULIN (NOVOLOG) ASPART 100 UNITS/ML 10ML VIAL ONE (17:18)
[2016-08-21] MEDS: THIAMINE HCL 100 MG TABLET (FP) PO SCH (21:46)
[2016-08-21] MEDS: diphenhydrAMINE HCL 50 MG CAPSULE PO PRN (21:46)
[2016-08-22] MEDS: metFORMIN HCL 500 MG TABLET (FP) PO SCH ×2 (06:35→16:45)
[2016-08-22] MEDS: INSULIN SLIDING SCALE (NOVOLOG) 1 VIAL SQ SCH ×2 (06:36→16:46)
[2016-08-22] MEDS ORDERED: INSULIN (NOVOLOG) ASPART 100 UNITS/ML 10ML VIAL ONE ×2 (07:12→16:44)
[2016-08-22] MEDS: BACITRACIN 0.9 GM PACKET TP SCH ×2 (09:59→22:14)
[2016-08-22] MEDS: LIDOCAINE 5% TOPICAL PATCH TP SCH (09:59)
[2016-08-22] MEDS: ENALAPRIL MALEATE 5 MG TABLET (FP) PO SCH (09:59)
[2016-08-22] MEDS: PRENATAL VITAMINS W/ FOLIC ACID TABLET (FP) PO SCH (09:59)
[2016-08-22] MEDS: THIAMINE HCL 100 MG TABLET (FP) PO SCH (21:35)
[2016-08-23] MEDS: diphenhydrAMINE HCL 50 MG CAPSULE PO PRN ×2 (00:02→23:36)
[2016-08-23] MEDS: metFORMIN HCL 500 MG TABLET (FP) PO SCH ×2 (06:19→16:42)
[2016-08-23] MEDS: INSULIN SLIDING SCALE (NOVOLOG) 1 VIAL SQ SCH ×2 (06:21→16:43)
[2016-08-23] MEDS: ENALAPRIL MALEATE 5 MG TABLET (FP) PO SCH (09:44)
[2016-08-23] MEDS: BACITRACIN 0.9 GM PACKET TP SCH ×2 (09:44→22:45)
[2016-08-23] MEDS: LIDOCAINE 5% TOPICAL PATCH TP SCH (09:44)
[2016-08-23] MEDS: PRENATAL VITAMINS W/ FOLIC ACID TABLET (FP) PO SCH (09:44)
[2016-08-23] MEDS ORDERED: INSULIN (NOVOLOG) ASPART 100 UNITS/ML 10ML VIAL ONE (16:42)
[2016-08-23] MEDS: THIAMINE HCL 100 MG TABLET (FP) PO SCH (21:50)
[2016-08-24] MEDS: metFORMIN HCL 500 MG TABLET (FP) PO SCH ×2 (07:06→17:05)
[2016-08-24] MEDS: INSULIN SLIDING SCALE (NOVOLOG) 1 VIAL SQ SCH ×2 (07:06→17:06)
[2016-08-24] MEDS ORDERED: INSULIN (NOVOLOG) ASPART 100 UNITS/ML 10ML VIAL ONE ×2 (07:06→18:06)
[2016-08-24] MEDS: LIDOCAINE 5% TOPICAL PATCH TP SCH (09:53)
[2016-08-24] MEDS: ENALAPRIL MALEATE 5 MG TABLET (FP) PO SCH (09:53)
[2016-08-24] MEDS: PRENATAL VITAMINS W/ FOLIC ACID TABLET (FP) PO SCH (09:53)
[2016-08-24] MEDS: BACITRACIN 0.9 GM PACKET TP SCH ×2 (09:53→21:29)
[2016-08-24] MEDS: diphenhydrAMINE HCL 50 MG CAPSULE PO PRN ×2 (21:29→23:51)
[2016-08-24] MEDS: THIAMINE HCL 100 MG TABLET (FP) PO SCH (21:29)
[2016-08-25] MEDS: metFORMIN HCL 500 MG TABLET (FP) PO SCH ×2 (07:10→16:43)
[2016-08-25] MEDS: INSULIN SLIDING SCALE (NOVOLOG) 1 VIAL SQ SCH ×2 (07:11→16:44)
[2016-08-25] MEDS: LIDOCAINE 5% TOPICAL PATCH TP SCH (09:47)
[2016-08-25] MEDS: PRENATAL VITAMINS W/ FOLIC ACID TABLET (FP) PO SCH (09:47)
[2016-08-25] MEDS: ENALAPRIL MALEATE 5 MG TABLET (FP) PO SCH (09:47)
[2016-08-25] MEDS: BACITRACIN 0.9 GM PACKET TP SCH ×2 (09:47→23:36)
[2016-08-25] MEDS ORDERED: INSULIN (NOVOLOG) ASPART 100 UNITS/ML 10ML VIAL ONE (16:42)
[2016-08-25] MEDS: THIAMINE HCL 100 MG TABLET (FP) PO SCH (21:52)
[2016-08-25] MEDS: diphenhydrAMINE HCL 50 MG CAPSULE PO PRN (23:30)
[2016-08-26] MEDS: metFORMIN HCL 500 MG TABLET (FP) PO SCH ×2 (07:12→16:50)
[2016-08-26] MEDS: INSULIN SLIDING SCALE (NOVOLOG) 1 VIAL SQ SCH ×2 (07:12→16:50)
[2016-08-26] MEDS: LIDOCAINE 5% TOPICAL PATCH TP SCH (09:37)
[2016-08-26] MEDS: BACITRACIN 0.9 GM PACKET TP SCH ×2 (09:37→22:03)
[2016-08-26] MEDS: ENALAPRIL MALEATE 5 MG TABLET (FP) PO SCH (09:37)
[2016-08-26] MEDS: PRENATAL VITAMINS W/ FOLIC ACID TABLET (FP) PO SCH (09:37)
[2016-08-26] MEDS: THIAMINE HCL 100 MG TABLET (FP) PO SCH (22:02)
[2016-08-26] MEDS: diphenhydrAMINE HCL 50 MG CAPSULE PO PRN (23:32)
[2016-08-27] MEDS: metFORMIN HCL 500 MG TABLET (FP) PO SCH ×2 (06:24→16:46)
[2016-08-27] MEDS: INSULIN SLIDING SCALE (NOVOLOG) 1 VIAL SQ SCH ×2 (06:24→16:47)
[2016-08-27] MEDS: ENALAPRIL MALEATE 5 MG TABLET (FP) PO SCH (09:36)
[2016-08-27] MEDS: PRENATAL VITAMINS W/ FOLIC ACID TABLET (FP) PO SCH (09:36)
[2016-08-27] MEDS: BACITRACIN 0.9 GM PACKET TP SCH ×2 (09:36→21:50)
[2016-08-27] MEDS: LIDOCAINE 5% TOPICAL PATCH TP SCH (09:36)
[2016-08-27] MEDS ORDERED: INSULIN (NOVOLOG) ASPART 100 UNITS/ML 10ML VIAL ONE (16:46)
[2016-08-27] MEDS: THIAMINE HCL 100 MG TABLET (FP) PO SCH (21:49)
[2016-08-27] MEDS: diphenhydrAMINE HCL 50 MG CAPSULE PO PRN (23:30)
[2016-08-28] MEDS: metFORMIN HCL 500 MG TABLET (FP) PO SCH ×2 (07:07→16:40)
[2016-08-28] MEDS: INSULIN SLIDING SCALE (NOVOLOG) 1 VIAL SQ SCH ×2 (07:07→16:41)
[2016-08-28] MEDS: PRENATAL VITAMINS W/ FOLIC ACID TABLET (FP) PO SCH (09:58)
[2016-08-28] MEDS: BACITRACIN 0.9 GM PACKET TP SCH ×2 (09:58→21:35)
[2016-08-28] MEDS: LIDOCAINE 5% TOPICAL PATCH TP SCH (09:59)
[2016-08-28] MEDS: ENALAPRIL MALEATE 5 MG TABLET (FP) PO SCH ×2 (10:00→10:02)
[2016-08-28] MEDS ORDERED: INSULIN (NOVOLOG) ASPART 100 UNITS/ML 10ML VIAL ONE (16:39)
[2016-08-28] MEDS: THIAMINE HCL 100 MG TABLET (FP) PO SCH (21:35)
[2016-08-28] MEDS: diphenhydrAMINE HCL 50 MG CAPSULE PO PRN (23:52)
[2016-08-29] MEDS: metFORMIN HCL 500 MG TABLET (FP) PO SCH ×2 (07:19→16:53)
[2016-08-29] MEDS: INSULIN SLIDING SCALE (NOVOLOG) 1 VIAL SQ SCH ×2 (07:19→16:55)
[2016-08-29] MEDS: ENALAPRIL MALEATE 5 MG TABLET (FP) PO SCH (09:47)
[2016-08-29] MEDS: PRENATAL VITAMINS W/ FOLIC ACID TABLET (FP) PO SCH (09:47)
[2016-08-29] MEDS: LIDOCAINE 5% TOPICAL PATCH TP SCH (09:47)
[2016-08-29] MEDS: BACITRACIN 0.9 GM PACKET TP SCH ×2 (09:48→21:38)
[2016-08-29] MEDS ORDERED: INSULIN (NOVOLOG) ASPART 100 UNITS/ML 10ML VIAL ONE (17:02)
[2016-08-29] MEDS: diphenhydrAMINE HCL 50 MG CAPSULE PO PRN ×2 (21:38→23:54)
[2016-08-29] MEDS: THIAMINE HCL 100 MG TABLET (FP) PO SCH (21:38)
[2016-08-30] MEDS: INSULIN SLIDING SCALE (NOVOLOG) 1 VIAL SQ SCH ×2 (07:14→16:50)
[2016-08-30] MEDS: metFORMIN HCL 500 MG TABLET (FP) PO SCH ×2 (07:14→16:49)
[2016-08-30] MEDS ORDERED: INSULIN (NOVOLOG) ASPART 100 UNITS/ML 10ML VIAL ONE ×2 (07:15→17:10)
[2016-08-30] MEDS: PRENATAL VITAMINS W/ FOLIC ACID TABLET (FP) PO SCH (09:42)
[2016-08-30] MEDS: ENALAPRIL MALEATE 5 MG TABLET (FP) PO SCH (09:42)
[2016-08-30] MEDS: LIDOCAINE 5% TOPICAL PATCH TP SCH (09:43)
[2016-08-30] MEDS: BACITRACIN 0.9 GM PACKET TP SCH ×2 (09:43→21:45)
[2016-08-30] MEDS: THIAMINE HCL 100 MG TABLET (FP) PO SCH (21:44)
[2016-08-30] MEDS: diphenhydrAMINE HCL 50 MG CAPSULE PO PRN ×2 (21:44→23:03)
[2016-08-31] MEDS: metFORMIN HCL 500 MG TABLET (FP) PO SCH ×2 (06:28→16:47)
[2016-08-31] MEDS ORDERED: INSULIN (NOVOLOG) ASPART 100 UNITS/ML 10ML VIAL ONE ×2 (06:59→17:06)
[2016-08-31] MEDS: INSULIN SLIDING SCALE (NOVOLOG) 1 VIAL SQ SCH ×2 (07:12→16:48)
[2016-08-31] MEDS: ENALAPRIL MALEATE 5 MG TABLET (FP) PO SCH (09:42)
[2016-08-31] MEDS: PRENATAL VITAMINS W/ FOLIC ACID TABLET (FP) PO SCH (09:42)
[2016-08-31] MEDS: BACITRACIN 0.9 GM PACKET TP SCH ×2 (09:42→21:41)
[2016-08-31] MEDS: LIDOCAINE 5% TOPICAL PATCH TP SCH (09:42)
[2016-08-31] MEDS: diphenhydrAMINE HCL 50 MG CAPSULE PO PRN ×2 (21:41→23:36)
[2016-08-31] MEDS: THIAMINE HCL 100 MG TABLET (FP) PO SCH (21:41)
[2016-09-01] MEDS: metFORMIN HCL 500 MG TABLET (FP) PO SCH ×2 (07:11→16:23)
[2016-09-01] MEDS: INSULIN SLIDING SCALE (NOVOLOG) 1 VIAL SQ SCH ×2 (07:11→16:25)
[2016-09-01] MEDS: PRENATAL VITAMINS W/ FOLIC ACID TABLET (FP) PO SCH (09:47)
[2016-09-01] MEDS: LIDOCAINE 5% TOPICAL PATCH TP SCH (09:48)
[2016-09-01] MEDS: ENALAPRIL MALEATE 5 MG TABLET (FP) PO SCH (09:48)
[2016-09-01] MEDS: BACITRACIN 0.9 GM PACKET TP SCH ×2 (09:48→21:28)
[2016-09-01] MEDS ORDERED: INSULIN (NOVOLOG) ASPART 100 UNITS/ML 10ML VIAL ONE (16:23)
[2016-09-01] MEDS: THIAMINE HCL 100 MG TABLET (FP) PO SCH (21:28)
[2016-09-01] MEDS: diphenhydrAMINE HCL 50 MG CAPSULE PO PRN (23:33)
[2016-09-02] MEDS: metFORMIN HCL 500 MG TABLET (FP) PO SCH ×2 (07:10→16:45)
[2016-09-02] MEDS: INSULIN SLIDING SCALE (NOVOLOG) 1 VIAL SQ SCH ×2 (07:10→16:47)
[2016-09-02] MEDS: ENALAPRIL MALEATE 5 MG TABLET (FP) PO SCH (09:45)
[2016-09-02] MEDS: BACITRACIN 0.9 GM PACKET TP SCH ×2 (09:45→21:35)
[2016-09-02] MEDS: PRENATAL VITAMINS W/ FOLIC ACID TABLET (FP) PO SCH (09:45)
[2016-09-02] MEDS: LIDOCAINE 5% TOPICAL PATCH TP SCH (09:46)
[2016-09-02] MEDS ORDERED: INSULIN (NOVOLOG) ASPART 100 UNITS/ML 10ML VIAL ONE (16:45)
[2016-09-02] MEDS: THIAMINE HCL 100 MG TABLET (FP) PO SCH (21:35)
[2016-09-02] MEDS: diphenhydrAMINE HCL 50 MG CAPSULE PO PRN (23:32)
[2016-09-03] MEDS: INSULIN SLIDING SCALE (NOVOLOG) 1 VIAL SQ SCH ×2 (07:04→16:39)
[2016-09-03] MEDS: metFORMIN HCL 500 MG TABLET (FP) PO SCH ×2 (07:04→16:36)
[2016-09-03] MEDS: PRENATAL VITAMINS W/ FOLIC ACID TABLET (FP) PO SCH (09:44)
[2016-09-03] MEDS: LIDOCAINE 5% TOPICAL PATCH TP SCH (09:44)
[2016-09-03] MEDS: ENALAPRIL MALEATE 5 MG TABLET (FP) PO SCH (09:44)
[2016-09-03] MEDS: BACITRACIN 0.9 GM PACKET TP SCH ×2 (09:47→21:28)
[2016-09-03] MEDS ORDERED: INSULIN (NOVOLOG) ASPART 100 UNITS/ML 10ML VIAL ONE (16:36)
[2016-09-03] MEDS: THIAMINE HCL 100 MG TABLET (FP) PO SCH (21:28)
[2016-09-04] MEDS: metFORMIN HCL 500 MG TABLET (FP) PO SCH ×2 (06:59→16:52)
[2016-09-04] MEDS: INSULIN SLIDING SCALE (NOVOLOG) 1 VIAL SQ SCH ×2 (07:00→16:53)
[2016-09-04] MEDS: ENALAPRIL MALEATE 5 MG TABLET (FP) PO SCH (10:01)
[2016-09-04] MEDS: PRENATAL VITAMINS W/ FOLIC ACID TABLET (FP) PO SCH (10:01)
[2016-09-04] MEDS: LIDOCAINE 5% TOPICAL PATCH TP SCH (10:02)
[2016-09-04] MEDS: BACITRACIN 0.9 GM PACKET TP SCH ×2 (10:02→21:41)
[2016-09-04] MEDS: HYDROCORTISONE 1% TOPICAL CREAM 30 GM TUBE TP SCH ×2 (17:16→21:40)
[2016-09-04] MEDS ORDERED: INSULIN (NOVOLOG) ASPART 100 UNITS/ML 10ML VIAL ONE (17:28)
[2016-09-04 20:46] LABS: URINE APPEARANCE CLEAR; URINE BILIRUBIN NEGATIVE (NEGATIVE); URINE BLOOD NEGATIVE (NEGATIVE); URINE COLOR YELLOW; URINE GLUCOSE (UA) 1+ (NEGATIVE); URINE KETONE NEGATIVE (NEGATIVE); URINE LEUK ESTERASE NEGATIVE (NEGATIVE); URINE NITRITE NEGATIVE (NEGATIVE); URINE PROTEIN NEGATIVE (NEGATIVE); URINE UROBILINOGEN 2.0 E.U/dl E.U./dl (0.2-1.0)
[2016-09-04] MEDS: THIAMINE HCL 100 MG TABLET (FP) PO SCH (21:40)
[2016-09-04] MEDS: diphenhydrAMINE HCL 50 MG CAPSULE PO PRN ×2 (21:41→23:57)
[2016-09-05] MEDS: metFORMIN HCL 500 MG TABLET (FP) PO SCH ×2 (06:24→16:34)
[2016-09-05] MEDS: INSULIN SLIDING SCALE (NOVOLOG) 1 VIAL SQ SCH ×2 (06:25→16:36)
[2016-09-05] MEDS ORDERED: PT OWN MED DRAWER 7, Y5N ONE ×2 (08:40→21:38)
[2016-09-05] MEDS: BACITRACIN 0.9 GM PACKET TP SCH ×2 (09:36→22:49)
[2016-09-05] MEDS: LIDOCAINE 5% TOPICAL PATCH TP SCH (09:36)
[2016-09-05] MEDS: ENALAPRIL MALEATE 5 MG TABLET (FP) PO SCH (09:37)
[2016-09-05] MEDS: HYDROCORTISONE 1% TOPICAL CREAM 30 GM TUBE TP SCH ×2 (09:37→21:38)
[2016-09-05] MEDS: PRENATAL VITAMINS W/ FOLIC ACID TABLET (FP) PO SCH (09:37)
[2016-09-05] MEDS ORDERED: INSULIN (NOVOLOG) ASPART 100 UNITS/ML 10ML VIAL ONE (16:33)
[2016-09-05] MEDS: ARTIFICIAL TEARS (POLYVINYL ALCOHOL 1.4%) OPTH DROPS OU SCH (21:35)
[2016-09-05] MEDS: THIAMINE HCL 100 MG TABLET (FP) PO SCH (21:37)
[2016-09-05] MEDS: diphenhydrAMINE HCL 50 MG CAPSULE PO PRN (23:50)
[2016-09-06] MEDS: metFORMIN HCL 500 MG TABLET (FP) PO SCH ×2 (06:48→16:38)
[2016-09-06] MEDS: ARTIFICIAL TEARS (POLYVINYL ALCOHOL 1.4%) OPTH DROPS OU SCH ×3 (06:49→22:09)
[2016-09-06] MEDS: INSULIN SLIDING SCALE (NOVOLOG) 1 VIAL SQ SCH ×2 (06:49→16:40)
[2016-09-06] MEDS ORDERED: PT OWN MED DRAWER 7, Y5N ONE (08:32)
[2016-09-06] MEDS: PRENATAL VITAMINS W/ FOLIC ACID TABLET (FP) PO SCH (09:41)
[2016-09-06] MEDS: LIDOCAINE 5% TOPICAL PATCH TP SCH (09:41)
[2016-09-06] MEDS: ENALAPRIL MALEATE 5 MG TABLET (FP) PO SCH (09:41)
[2016-09-06] MEDS: BACITRACIN 0.9 GM PACKET TP SCH ×2 (09:41→22:09)
[2016-09-06] MEDS: HYDROCORTISONE 1% TOPICAL CREAM 30 GM TUBE TP SCH ×2 (09:42→21:56)
[2016-09-06] MEDS ORDERED: INSULIN (NOVOLOG) ASPART 100 UNITS/ML 10ML VIAL ONE (16:38)
[2016-09-06] MEDS: THIAMINE HCL 100 MG TABLET (FP) PO SCH (21:56)
[2016-09-06] MEDS: diphenhydrAMINE HCL 50 MG CAPSULE PO PRN (23:26)
[2016-09-07] MEDS: ARTIFICIAL TEARS (POLYVINYL ALCOHOL 1.4%) OPTH DROPS OU SCH (06:30)
[2016-09-07 06:46] VITALS: BP 126/74; PULSE 83; TEMP 98.8
[2016-09-07] MEDS: INSULIN SLIDING SCALE (NOVOLOG) 1 VIAL SQ SCH (07:01)
[2016-09-07] MEDS: metFORMIN HCL 500 MG TABLET (FP) PO SCH (07:01)
--- NOTE | 2016-09-07 07:10 | PN ---
Psychiatric Progress Note Vital Signs: Vital Signs Period Temp Pulse Resp BP Sys/[place] Pulse Ox Last 24 Hr 98.8 F 83-93 18-18 104-126/68-74 Date of Session: 09/07/16 Chief Complaint:: Discharge Note HPI: Patient addressing Alcohol Dependence comorbid with Nicotine Dependence and Substance-Induced Sleep Disorder ROS: NIDDM, HTN were medically managed Current Medications: Active Medications Generic Name Dose Route Start Last Admin Trade Name Freq PRN Reason Stop Dose Admin Acetaminophen 650 mg 08/11/16 13:22 Tylenol - PO Q4H PRN FEVER OR PAIN Al Hydroxide/Mg Hydroxide 30 ml 08/11/16 13:22 Mylanta Oral Suspension - PO Q6H PRN DYSPEPSIA Artificial Tears 1 drop 09/05/16 22:00 09/07/16 06:30 Artificial Tears OU 1 drop TID SONIDO Administration Bacitracin 0.9 gm 08/11/16 22:00 09/06/16 22:09 Bacitracin - TP Not Given BID SONIDO Diphenhydramine HCl 50 mg 08/11/16 13:22 09/06/16 23:26 Benadryl - PO 50 mg HSMR1 PRN Administration FOR ITCHING Enalapril Maleate 5 mg 08/12/16 10:00 09/06/16 09:41 Vasotec - PO 5 mg DAILY SONIDO Administration Eucalyptus/Menthol/Phenol/Sorbitol 1 each 08/11/16 13:22 Cepastat Lozenge - MM Q4H PRN SORE THROAT Guaifenesin 10 ml 08/11/16 13:22 Robitussin Dm - PO Q6H PRN COUGH Hydrocortisone 1 applic 09/04/16 14:00 09/06/16 21:56 Hytone 1% Cream - TP 1 applic BID SONIDO Administration Ibuprofen 400 mg 08/11/16 13:22 Motrin - PO Q6H PRN PAIN Insulin Aspart 1 vial 08/11/16 16:30 09/07/16 07:01 Novolog Vial Sliding Scale - SQ Not Given BIDAC [facility] Protocol Lidocaine 1 patch 08/21/16 12:45 09/06/16 09:41 Lidoderm Patch - TP 1 patch DAILY SONIDO Administration Loperamide HCl 4 mg 08/11/16 13:22 Imodium - PO Q6H PRN DIARRHEA Magnesium Hydroxide 30 ml 08/11/16 13:22 Milk Of Magnesia - PO DAILY PRN CONSTIPATION Metformin HCl 1,000 mg 08/11/16 16:30 09/07/16 07:01 Glucophage - PO 1,000 mg BID@0700,1630 SONIDO Administration Multivit/Folic Acid/Iron 1 tab 08/12/16 10:00 09/06/16 09:41 Vitamins (Sjr) - PO 1 tab DAILY SONIDO Administration Pseudoephedrine/Triprolidine 1 combo 08/11/16 13:22 Actifed - PO TID PRN NASAL CONGESTION Thiamine HCl 100 mg 08/11/16 22:00 09/06/16 21:56 Vitamin B1 - PO 100 mg HS SONIDO Administration Current Side Effect: No Lab tests ordered: Yes Lab tests reviewed: Yes Provider note:: Patient has completed this program today. He has met his treatment goals and will continue to address his issues in outpatient treatment at [facility]. Told credit underwriter that from his participation in this program, he has learned the importance of establishing a sober support network in order to maintain sobriety. He is stable for discharge today Total face to face time:: 35 Mental Status Exam - Mental Status Exam Alert and Oriented to: Time, Place, Person Cognitive Function: Fair Patient Appearance: Well Groomed Mood: Hopeful, Euthymic Affect: Appropriate Patient Behavior: Cooperative Speech Pattern: Clear Voice Loudness: Normal Thought Process: Intact Thought Disorder: Not Present Hallucinations: Denies Suicidal Ideation: Denies Homicidal Ideation: Denies Insight/Judgement: Fair Sleep: Fair Appetite: Good Muscle strength/Tone: Normal Gait/Station: Normal Psychiatric Treatment Plan - Problem List (1) Alcohol dependence with uncomplicated withdrawal Current Visit: No (2) Nicotine dependence Current Visit: Yes (3) Substance-induced sleep disorder Current Visit: Yes (4) DM Diabetes mellitus type 2 Current Visit: No (5) HTN (hypertension) Current Visit: No Initial treatment plan: Patient is discharged today and referred to [facility] for outpatient treatment
[2016-09-07] MEDS: PRENATAL VITAMINS W/ FOLIC ACID TABLET (FP) PO SCH (09:48)
[2016-09-07] MEDS: ENALAPRIL MALEATE 5 MG TABLET (FP) PO SCH (09:48)
[2016-09-07] MEDS: HYDROCORTISONE 1% TOPICAL CREAM 30 GM TUBE TP SCH (09:49)
[2016-09-07] MEDS: LIDOCAINE 5% TOPICAL PATCH TP SCH (09:49)
[2016-09-07] MEDS: BACITRACIN 0.9 GM PACKET TP SCH (09:49)
== END 2016-09-07 09:50 | disposition home or self-care (01) | DRG 772 ==
LOC: YASAS 11:27 → Y3W 11:29
PROVIDERS: ADMIT Psychiatry & Neurology Psychiatry; ATTEND Psychiatry & Neurology Psychiatry
PROC: HZ42ZZZ Group Counseling for Substance Abuse Treatment, Cognitive-Behavioral (ICD-10-PCS; principal; 2016-08-11)
DX: F10.20 Alcohol dependence, uncomplicated (principal); F17.210 Nicotine dependence, cigarettes, uncomplicated; F19.282 Other psychoactive substance dependence with psychoactive substance-induced sleep disorder; E11.9 Type 2 diabetes mellitus without complications; I10 Essential (primary) hypertension
CPT/HCPCS: 36415; 81003; 87389

== ENCOUNTER 2016-10-26 11:12 | Inpatient (IN) | payer OTHER ==
--- NOTE | 2016-10-26 12:04 | PDOC ---
History of Present Illness - General Chief Complaint: Injury Stated Complaint: Alcohol intoxication/FALL Time Seen by Provider: 10/26/16 11:54 History Source: Patient Exam Limitations: Intoxication - History of Present Illness Initial Comments: 10/26/16 12:25 51M with pmh of EtOH dependance and DM2 presents to the the ED after a fall looking for detox. He was last seen and admitted for the same reason 3 months ago. Patient presents with abrasion of the right zygomatic area. PAtient claims to have drank 5 big cans of "four devin" 10/26/16 13:43 Occurred: reports: just prior to arrival Severity: reports: mild Pain Location: reports: face, upper extremity Method of Injury: Yes: fall Loss of Consciousness: unsure Past History - Travel Traveled outside of the country in the last 30 days: No - Past Medical History Allergies/Adverse Reactions: Allergies Allergy/AdvReac Type Severity Reaction Status Date / Time No Known Allergies Allergy Verified 10/26/16 11:29 Home Medications: Ambulatory Orders Enalapril Maleate [Vasotec -] 5 mg PO DAILY #30 tablet 09/07/16 Metformin HCl [Glucophage -] 1,000 mg PO BID@0700,1630 #60 tablet 09/07/16 Anemia: No Asthma: No Cancer: No Cardiac Disorders: No CVA: No COPD: No CHF: No Dementia: No Diabetes: Yes GI Disorders: No Disorders: No HTN: No Hypercholesterolemia: No Kidney Stones: No Liver Disease: No Suicide Attempt (Hx): No Seizures: No Thyroid Disease: No Other medical history: alcoholism - Surgical History Abdominal Surgery: No Appendectomy: No Cardiac Surgery: No Cholecystectomy: No Lung Surgery: No Neurologic Surgery: No Orthopedic Surgery: No - Reproductive History Testicular Surgery: No - Psycho/Social/Smoking Cessation Hx Anxiety: Yes Suicidal Ideation: No Smoking Status: Yes Smoking History: Never smoked Have you smoked in the past 12 months: No Number of Cigarettes Smoked Daily: 0 Cigars Per Day: 0 Information on smoking cessation initiated: No 'Breaking Loose' booklet given: 11/21/14 Hx Alcohol Use: No Drug/Substance Use Hx: No Substance Use Type: Alcohol Hx Substance Use Treatment: Yes (3 previous inpt detox & one rehab @ [facility]) Trauma Specific PMHX - Complaint Specific PMHX Arthritis: Yes Review of Systems - Review of Systems Constitutional: Yes: Fever. No: Chills HEENTM: No: Symptoms Reported, Eye Pain Respiratory: No: Symptoms reported Cardiac (ROS): Yes: Symptoms Reported ABD/GI: Yes: Diarrhea, Vomiting : No: Symptoms Reported, Dysuria, Discharge, Hematuria Musculoskeletal: Yes: See HPI Integumentary: Yes: See HPI *Physical Exam - Vital Signs Last Vital Signs Temp Pulse Resp BP Pulse Ox 100.5 F H 93 H 18 111/59 100 10/26/16 11:12 10/26/16 11:12 10/26/16 11:12 10/26/16 11:12 10/26/16 11:12 - Physical Exam General Appearance: Yes: Alcohol on Breath, Intoxicated HEENT: positive: Normal ENT Inspection, Lesions (right zygomatic process 3cm circular abrasion) Neck: negative: Tender, Lymphadenopathy (R), Lymphadenopathy (L) Respiratory/Chest: positive: Lungs Clear, Normal Breath Sounds. negative: Respiratory Distress, Crackles, Rales, Rhonchi, Stridor, Wheezing Cardiovascular: positive: Regular Rhythm, Regular Rate, S1, S2 Vascular Pulses: Carotid (R): 2+, Carotid (L): 2+, Dorsalis-Pedis (R): 2+, Doralis-Pedis (L): 2+ Gastrointestinal/Abdominal: positive: Protuberent, Other (scarrified wound with coagulated blood on RLQ) Extremity: positive: Other Integumentary: positive: Normal Color, Dry, Rash (raised erythmatous rash on R ventral forarm) Neurologic: positive: Alert, Responsive, Disoriented ED Treatment Course - LABORATORY CBC & Chemistry Diagram: 10/26/16 12:29 10/26/16 12:29 Medical Decision Making - Medical Decision Making 10/26/16 12:43 51yoM with pmh of Etoh abuse and DM2 presents to the ED after a fall asking for detox- rectal 102 - LOC possible according to pt, ordered CT head and R wrist and hand xray, cbc, cmp to r/o lytes and hyper/hypoglycemia as well as etoh levels. Pt put on banana bag. 10/26/16 13:18 Lytes back. Potassium 2.7 with low plts and 122HCl. Liver cirrhosis likely. Ordered 80meq KCl PO. Blood cultures ordered. Patient to be admitted after imaging comes back. 10/26/16 14:21 Ct head came back negative. Dr. Willson paged for pt admission. Accepted admission. Need consult from Dr. Garza 10/26/16 14:54 10/26/16 16:54 10/26/16 16:57 oral temp 103. Ordered chest xray and tylenol iv 10/26/16 16:59 *DC/Admit/Observation/Transfer Diagnosis at time of Disposition: ETOH abuse, Hyponatremia, Hypokalemia - Discharge Dispostion Admit: Yes - Transfer to Acute Care Facility Accepting Physician:: Dr. Willson
[2016-10-26] MEDS ORDERED: FOLIC ACID INJECTION - 1 MG, THIAMINE HCL 100 MG, MULTIVIT INJECTION ADULT 10 ML in SOD... IVPB ONE (12:20)
[2016-10-26 12:42] LABS: BASOPHIL 0.4 % (0-2.0); MCH 31.1 pg (25.7-33.7); MCHC 35.2 g/dl (32.0-35.9); MEAN CELL VOLUME 88.6 fl (80-96); MEAN PLT VOLUME 10.1 fl (7.5-11.1); NEUTROPHILS 77.9 % (42.8-82.8); PLATELET COUNT 53 K/MM3 (134-434); RDW 15.3 % (11.9-15.9); WHITE BLOOD COUNT 7.9 K/mm3 (4.0-10.0)
[2016-10-26 13:01] LABS: ALBUMIN 2.3 g/dl (3.4-5.0); ALK PHOS 146 U/L (45-117); ANION GAP 10 (8-16); BILIRUBIN,TOTAL 1.6 mg/dL (0.2-1.0); CALCIUM 7.2 mg/dL (8.5-10.1); CO2 26 mmol/L (21-32); CREATININE 0.8 mg/dL (0.7-1.3); GLUCOSE,RANDOM 158 mg/dL (74-106); SGOT/AST 122 U/L (15-37); SGPT/ALT 41 U/L (12-78); TOT PROT 7.3 g/dl (6.4-8.2)
[2016-10-26] MEDS ORDERED: POTASSIUM CHLORIDE ORAL LIQUID 20 MEQ/15 ML PO ONE (13:15)
--- NOTE | 2016-10-26 13:38 | PDOC ---
Attending Attestation - Resident Resident Name: SuzyJack - ED Attending Attestation I have performed the following: I have examined & evaluated the patient, The case was reviewed & discussed with the resident, I agree w/resident's findings & plan, Exceptions are as noted - HPI HPI: 10/26/16 13:34 51-year-old male with history of diabetes and alcohol abuse Presents with mechanical fall. The patient reported that he had several drinks of beer and he fell. Reports that he struck the right side of his face and thinks may have had a brief loss of conscious. Patient denies headache, nausea or vomiting. Reports feeling somewhat intoxicated. Patient does report that lately he had some few loose stools and nausea and vomiting. Denies abdominal pain at this time. Temperature is noted 100.5 here. Patient is also complaining about some generalized right hand pain but no focal tenderness. States that this has occurred secondary to fall. - Physicial Exam PE: 10/26/16 13:36 GENERAL: Awake, alert, and fully oriented, in no acute distress. HEAD: No signs of trauma EYES: PERRLA, EOMI, sclera anicteric, conjunctiva clear ENT: Auricles normal inspection, hearing grossly normal, nares patent, oropharynx clear without exudates. NECK: Normal ROM, supple, no lymphadenopathy, JVD, or masses LUNGS: Breath sounds equal, clear to auscultation bilaterally. No wheezes, and no crackles HEART: Regular rate and rhythm, normal S1 and S2, no murmurs, rubs or gallops ABDOMEN: Soft, nontender, normoactive bowel sounds. No guarding, no rebound. No masses EXTREMITIES: Normal range of motion, no edema. No clubbing or cyanosis. No cords, erythema, or tenderness RUE: 2+ radial pulse. sensation intact throughout. median/radian/ulnar nerve functions intact. FROM all digits and wrist. No wrist instability appreciated. No axial loading tenderness or snuffbox tenderness. 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 NEUROLOGICAL: Cranial nerves II through XII grossly intact. Normal speech, normal gait SKIN: Warm, Dry, normal turgor. Small abrasion near right anabaptist. No lacerations. - Medical Decision Making 10/26/16 13:37 I agree that the patient will need a head CT to rule out intracranial hemorrhage secondary to an injury. Patient is intoxicated with alcohol on breath. I suspect the patient likely had a right hand sprain but I do not suspect fracture at this time. However, we'll obtain an x-ray to rule out occult fracture. Patient's blood work demonstrates hypokalemia and hyponatremia. This may potentially be secondary to his loose stools. Ultimately , the patient admitted to hospital further evaluation. Patient's blood work suggests that he may be developing cirrhosis secondary to alcohol. Admit.
[2016-10-26] MEDS ORDERED: chlordiazePOXIDE HCL 25 MG CAPSULE PO PRN (15:23)
--- NOTE | 2016-10-26 15:30 | CONSULT ---
Consult Detox [facility] Reason for Current Admission/Consult: Alcohol detox Referred by:: Jack Almonte Res - History History of Present Illness: 51 y/o man with a long hx. of alcoholism is admitted following a fall with head trauma.Pt. was in our detox in July 2016 - History Source History Provided By: Patient, Medical Record Limitations to Obtaining History: Other (drowsy) - Alcohol/Substance Use Hx Alcohol Use: Yes - Current Drug/Alcohol Use Alcohol Route: Oral Frequency: Daily Amount used: Beer 1-2(6 packs) Age of first use: 12 Date of Last Use: 10/26/16 - Significant Medical Findings: Laboratory Last Values WBC 7.9 K/mm3 (4.0-10.0) 10/26/16 12:29 RBC 3.93 M/mm3 (4.00-5.60) L 10/26/16 12:29 Hgb 12.2 GM/dL (11.7-16.9) 10/26/16 12:29 Hct 34.8 % (35.4-49) L 10/26/16 12:29 MCV 88.6 fl (80-96) 10/26/16 12:29 MCH 31.1 pg (25.7-33.7) 10/26/16 12:29 MCHC 35.2 g/dl (32.0-35.9) 10/26/16 12:29 RDW 15.3 % (11.9-15.9) D 10/26/16 12:29 Plt Count 53 K/MM3 (134-434) L D 10/26/16 12:29 MPV 10.1 fl (7.5-11.1) 10/26/16 12:29 Neutrophils % 77.9 % (42.8-82.8) D 10/26/16 12:29 Lymphocytes % 10.6 % (8-40) D 10/26/16 12:29 Monocytes % 11.1 % (3.8-10.2) H 10/26/16 12:29 Eosinophils % 0.0 % (0-4.5) D 10/26/16 12:29 Basophils % 0.4 % (0-2.0) 10/26/16 12:29 Sodium 119 mmol/L (136-145) L* D 10/26/16 12:29 Potassium 2.7 mmol/L (3.5-5.1) L* D 10/26/16 12:29 Chloride 83 mmol/L (98-107) L D 10/26/16 12:29 Carbon Dioxide 26 mmol/L (21-32) 10/26/16 12:29 Anion Gap 10 (8-16) 10/26/16 12:29 BUN 6 mg/dL (7-18) L 10/26/16 12:29 Creatinine 0.8 mg/dL (0.7-1.3) D 10/26/16 12:29 Creat Clearance w eGFR > 60 (>60) 10/26/16 12:29 Random Glucose 158 mg/dL (74-106) H 10/26/16 12:29 Calcium 7.2 mg/dL (8.5-10.1) L 10/26/16 12:29 Total Bilirubin 1.6 mg/dL (0.2-1.0) H D 10/26/16 12:29 AST 122 U/L (15-37) H D 10/26/16 12:29 ALT 41 U/L (12-78) D 10/26/16 12:29 Alkaline Phosphatase 146 U/L (45-117) H D 10/26/16 12:29 Total Protein 7.3 g/dl (6.4-8.2) 10/26/16 12:29 Albumin 2.3 g/dl (3.4-5.0) L 10/26/16 12:29 Alcohol, Quantitative 153.8 mg/dl (0-5) H* 10/26/16 12:29 labs noted Assessment Plan - Diagnosis (1) Alcohol dependence with uncomplicated withdrawal Status: Acute - Plan Plan: Refer to in-pt. Rehab - Medication Detox Regimen/Protocol: Librium
[2016-10-26] MEDS ORDERED: POTASSIUM CHLORIDE ORAL LIQUID 20 MEQ/15 ML ONE (16:37)
[2016-10-26] MEDS ORDERED: ACETAMINOPHEN 1000 MG/100 ML VIAL (NON FORMULARY) IVPB ONE (16:56)
[2016-10-26] MEDS ORDERED: ACETAMINOPHEN INJECTION 100 ML IVPB ONE (16:59)
[2016-10-26] MEDS ORDERED: PNEUMOC 13-VAL CONJ-DIP CRM/PF 0.5 ML DISP.SYRIN IM ONE (17:00)
[2016-10-26] MEDS: chlordiazePOXIDE HCL 25 MG CAPSULE PO SCH ×2 (19:02→23:42)
--- NOTE | 2016-10-26 20:41 | HP ---
Admitting History and Physical - Primary Care Physician PCP: Juan Manuel Willson - Admission Chief Complaint: fall History of Present Illness: 51-year-old male with history of diabetes and alcohol abuse Presents with mechanical fall. The patient reported that he had several drinks of beer and he fell. Reports that he struck the right side of his face and thinks may have had a brief loss of conscious. Patient denies headache, nausea or vomiting. Reports feeling somewhat intoxicated. Patient does report that lately he had some few loose stools and nausea and vomiting. Denies abdominal pain at this time. Temperature is noted 100.5 here. - Past Medical History Endocrine: Yes: Diabetes Mellitus - Smoking History Smoking history: Never smoked Have you smoked in the past 12 months: No Aproximately how many cigarettes per day: 0 - Alcohol/Substance Use Hx Alcohol Use: Yes Home Medications - Allergies Allergies/Adverse Reactions: Allergies Allergy/AdvReac Type Severity Reaction Status Date / Time No Known Allergies Allergy Verified 10/26/16 11:29 - Home Medications Home Medications: Ambulatory Orders Enalapril Maleate [Vasotec -] 5 mg PO DAILY #30 tablet 09/07/16 Metformin HCl [Glucophage -] 1,000 mg PO BID@0700,1630 #60 tablet 09/07/16 Family Disease History - Family Disease History Family Disease History: Other: Father (ETOH DEPENDENCE ) Physical Examination Vital Signs: Vital Signs Temperature 103.0 F H 10/26/16 16:56 Pulse Rate 94 H 10/26/16 16:56 Respiratory Rate 18 10/26/16 16:56 Blood Pressure 134/65 10/26/16 16:56 O2 Sat by Pulse Oximetry (%) 95 10/26/16 16:56 Constitutional: Yes: No Distress HENT: Yes: Atraumatic Neck: Yes: Supple Cardiovascular: Yes: Regular Rate and Rhythm Respiratory: Yes: CTA Bilaterally Gastrointestinal: Yes: Normal Bowel Sounds Extremities: Yes: WNL Edema: No Peripheral Pulses WNL: Yes Neurological: Yes: Alert, Oriented Imaging - Results X-ray: Report Reviewed Problem List - Problems (1) ETOH abuse Assessment/Plan: on Njuiceium protocol Code(s): F10.10 - ALCOHOL ABUSE, UNCOMPLICATED (2) Hypokalemia Assessment/Plan: will replace Code(s): E87.6 - HYPOKALEMIA (3) Hyponatremia Assessment/Plan: will monitor Code(s): E87.1 - HYPO-OSMOLALITY AND HYPONATREMIA (4) Alcohol dependence with uncomplicated withdrawal Assessment/Plan: pen ativan detox consult Code(s): F10.230 - ALCOHOL DEPENDENCE WITH WITHDRAWAL, UNCOMPLICATED (5) Alcoholic liver disease Code(s): K70.9 - ALCOHOLIC LIVER DISEASE, UNSPECIFIED (6) DM Diabetes mellitus type 2 Code(s): E11.9 - TYPE 2 DIABETES MELLITUS WITHOUT COMPLICATIONS (7) HTN (hypertension) Code(s): I10 - ESSENTIAL (PRIMARY) HYPERTENSION Assessment/Plan Laboratory Tests 10/26/16 10/26/16 10/26/16 12:29 12:29 12:29 WBC 7.9 RBC 3.93 L Hgb 12.2 Hct 34.8 L MCV 88.6 MCH 31.1 MCHC 35.2 RDW 15.3 D Plt Count 53 L D MPV 10.1 Neutrophils % 77.9 D Lymphocytes % 10.6 D Monocytes % 11.1 H Eosinophils % 0.0 D Basophils % 0.4 Sodium 119 L* D Potassium 2.7 L* D Chloride 83 L D Carbon Dioxide 26 Anion Gap 10 BUN 6 L Creatinine 0.8 D Creat Clearance w eGFR > 60 Random Glucose 158 H Calcium 7.2 L Total Bilirubin 1.6 H D AST 122 H D ALT 41 D Alkaline Phosphatase 146 H D Total Protein 7.3 Albumin 2.3 L Alcohol, Quantitative 153.8 H* Active Medications Generic Name Dose Route Start Last Admin Trade Name Freq PRN Reason Stop Dose Admin Chlordiazepoxide HCl 25 mg 10/26/16 15:23 Librium - PO 10/29/16 15:22 Q4H PRN WITHDRAWAL(CONT SUBST) Chlordiazepoxide HCl 50 mg 10/26/16 17:00 10/26/16 19:02 Librium - PO 10/27/16 11:01 50 mg [id number] SONIDO Administration Chlordiazepoxide HCl 25 mg 10/27/16 17:00 Librium - PO 10/28/16 11:01 [id number] SONIDO Chlordiazepoxide HCl 15 mg 10/28/16 17:00 Librium - PO 10/29/16 11:01 [id number] SONIDO Folic Acid 1 mg 10/27/16 10:00 Folic Acid - PO DAILY [facility] Multivitamins/Minerals/Vitamin C 1 tab 10/27/16 10:00 Tab-A-Vit - PO DAILY SONIDO Thiamine HCl 100 mg 10/26/16 22:00 Vitamin B1 - PO BID SONIDO
[2016-10-26] MEDS: SODIUM CHLORIDE 1,000 ML IV SCH (21:09)
[2016-10-26] MEDS: CEFTRIAXONE 50 ML IVPB SCH (21:09)
[2016-10-26] MEDS: THIAMINE HCL 100 MG TABLET (FP) PO SCH (21:15)
[2016-10-27] MEDS: chlordiazePOXIDE HCL 25 MG CAPSULE PO SCH ×4 (05:31→22:10)
[2016-10-27] MEDS: IBUPROFEN 400 MG TABLET (FP) PO PRN ×2 (06:36→22:10)
[2016-10-27 08:26] LABS: BASOPHIL 0.8 % (0-2.0); MCHC 34.8 g/dl (32.0-35.9); MEAN CELL VOLUME 88.9 fl (80-96); NEUTROPHILS 84.3 % (42.8-82.8); PLATELET COUNT 53 K/MM3 (134-434); RDW 15.8 % (11.9-15.9); WHITE BLOOD COUNT 7.7 K/mm3 (4.0-10.0)
[2016-10-27 08:52] LABS: ALBUMIN 2.1 g/dl (3.4-5.0); ANION GAP 8 (8-16); CALCIUM 7.3 mg/dL (8.5-10.1); CO2 28 mmol/L (21-32); GLUCOSE,RANDOM 163 mg/dL (74-106)
[2016-10-27 08:55] LABS: ALK PHOS 130 U/L (45-117); BILIRUBIN,TOTAL 1.6 mg/dL (0.2-1.0); CREATININE 0.5 mg/dL (0.7-1.3); SGOT/AST 120 U/L (15-37); SGPT/ALT 41 U/L (12-78); TOT PROT 6.9 g/dl (6.4-8.2)
[2016-10-27] MEDS: CEFTRIAXONE 50 ML IVPB SCH (11:44)
[2016-10-27] MEDS: MULTIVITAMINS (DAILY MVI) TABLET (FP) PO SCH (11:45)
[2016-10-27] MEDS: THIAMINE HCL 100 MG TABLET (FP) PO SCH ×2 (11:45→22:10)
[2016-10-27] MEDS: FOLIC ACID 1 MG TABLET (FP) PO SCH (11:45)
--- NOTE | 2016-10-27 15:32 | CONSULT ---
Consult Consult Specialty:: infectious diseases Reason for Consultation:: fever,asp pna - History of Present Illness Chief Complaint: fever, History of Present Illness: 51-year-old male with history of diabetes and alcohol abuse Presents with mechanical fall. The patient reported that he had several drinks of beer and he fell. Reports that he struck the right side of his face and thinks may have had a brief loss of conscious. Patient denies headache, nausea or vomiting. Reports feeling somewhat intoxicated. Patient does report that lately he had some few loose stools and nausea and vomiting. Denies abdominal pain at this time. Temperature is noted 100.5 here. the above history taken from the charts as patient is out of it and drowsy as he has also been given librium patient answers briefly and then falls into sleep patient has been having fevers and has gone as high as 103 rest no information available at this time - History Source History Provided By: Medical Record Limitations to Obtaining History: Clinical Condition - Alcohol/Substance Use Hx Alcohol Use: Yes - Smoking History Smoking history: Never smoked Have you smoked in the past 12 months: No Aproximately how many cigarettes per day: 0 Home Medications - Allergies Allergies/Adverse Reactions: Allergies Allergy/AdvReac Type Severity Reaction Status Date / Time No Known Allergies Allergy Verified 10/26/16 11:29 - Home Medications Home Medications: Ambulatory Orders Enalapril Maleate [Vasotec -] 5 mg PO DAILY #30 tablet 09/07/16 Metformin HCl [Glucophage -] 1,000 mg PO BID@0700,1630 #60 tablet 09/07/16 Family Disease History - Family Disease History Family Disease History: Other: Father (ETOH DEPENDENCE ) Review of Systems Unable to obtain ROS, reason: unable to obtain - Review of Systems Constitutional: reports: Fever Physical Exam Vital Signs: Vital Signs Temperature 100.1 F H 10/27/16 06:00 Pulse Rate 85 10/27/16 11:12 Respiratory Rate 24 10/27/16 11:12 Blood Pressure 104/50 10/27/16 11:12 O2 Sat by Pulse Oximetry (%) 95 10/26/16 21:00 Constitutional: Yes: Well Nourished, Obese Eyes: Yes: Conjunctiva Clear HENT: Yes: Other (foul smelling oral cavity) Cardiovascular: Yes: Regular Rate and Rhythm Respiratory: Yes: Regular, Poor Air Entry (rt side) Gastrointestinal: Yes: Normal Bowel Sounds, Soft Musculoskeletal: Yes: WNL Extremities: Yes: WNL Neurological: Yes: Alert, Oriented Labs: CBC, BMP 10/27/16 07:35 10/27/16 07:35 Imaging - Results Chest X-ray: Report Reviewed, Image Reviewed X-ray: Report Reviewed, Image Reviewed Cat Scan: Report Reviewed, Image Reviewed Assessment/Plan Problem List - Problems (1) ETOH abuse Code(s): F10.10 - ALCOHOL ABUSE, UNCOMPLICATED (2) Hypokalemia Code(s): E87.6 - HYPOKALEMIA (3) Hyponatremia Code(s): E87.1 - HYPO-OSMOLALITY AND HYPONATREMIA (4) Alcohol dependence with uncomplicated withdrawal Code(s): F10.230 - ALCOHOL DEPENDENCE WITH WITHDRAWAL, UNCOMPLICATED 5 fever 6 asp pna looking at the xray i think patient has aspirated plan will switch patient to cefipime continue to monitor for with drawl hydration rest as per detox
[2016-10-27] MEDS ORDERED: CEFEPIME HCL 1 GM VIAL (RESTRICTED TO ID) IVPB SCH (15:45)
[2016-10-27] MEDS: CEFEPIME 1 GM/100 ML BAG PRE-DOCKED IVPB SCH (15:56)
[2016-10-27] MEDS: SODIUM CHLORIDE 1,000 ML IV SCH ×2 (15:58→22:01)
--- NOTE | 2016-10-27 18:21 | PN ---
Progress Note, Physician History of Present Illness: drowsy - Current Medication List Current Medications: Active Medications Cefepime HCl (Maxipime 1gm Ivpb Pre-Docked) 1 gm IVPB Q8H SONIDO PRN Reason: Protocol Last Admin: 10/27/16 15:56 Dose: 1 gm Chlordiazepoxide HCl (Librium -) 25 mg PO Q4H PRN PRN Reason: WITHDRAWAL(CONT SUBST) Stop: 10/29/16 15:22 Chlordiazepoxide HCl (Librium -) 25 mg PO [id number] [facility] Stop: 10/28/16 11:01 Last Admin: 10/27/16 18:18 Dose: 25 mg Chlordiazepoxide HCl (Librium -) 15 mg PO [id number] [facility] Stop: 10/29/16 11:01 Folic Acid (Folic Acid -) 1 mg PO DAILY [facility] Last Admin: 10/27/16 11:45 Dose: 1 mg Sodium Chloride (Normal Saline -) 1,000 mls @ 75 mls/hr IV ASDIR [facility] Last Admin: 10/27/16 15:58 Dose: 75 mls/hr Ibuprofen (Motrin -) 400 mg PO Q6H PRN PRN Reason: PAIN Last Admin: 10/27/16 06:36 Dose: 400 mg Multivitamins/Minerals/Vitamin C (Tab-A-Vit -) 1 tab PO DAILY [facility] Last Admin: 10/27/16 11:45 Dose: 1 tab Thiamine HCl (Vitamin B1 -) 100 mg PO BID [facility] Last Admin: 10/27/16 11:45 Dose: 100 mg - Objective Vital Signs: Vital Signs Temperature 97.8 F 10/27/16 15:33 Pulse Rate 89 10/27/16 15:33 Respiratory Rate 22 10/27/16 15:33 Blood Pressure 102/58 10/27/16 15:33 O2 Sat by Pulse Oximetry (%) 93 L 10/27/16 11:00 HENT: Yes: Atraumatic Neck: Yes: Supple Cardiovascular: Yes: Regular Rate and Rhythm Respiratory: Yes: Rhonchi Gastrointestinal: Yes: Normal Bowel Sounds Extremities: Yes: WNL Neurological: Yes: Other (drowsy due to librium) Labs: CBC, BMP 10/27/16 07:35 10/27/16 07:35 Problem List - Problems (1) ETOH abuse Assessment/Plan: on librium protocol Code(s): F10.10 - ALCOHOL ABUSE, UNCOMPLICATED (2) Hypokalemia Assessment/Plan: will replace Code(s): E87.6 - HYPOKALEMIA (3) Hyponatremia Assessment/Plan: will monitor Code(s): E87.1 - HYPO-OSMOLALITY AND HYPONATREMIA (4) Alcohol dependence with uncomplicated withdrawal Assessment/Plan: pen ativan detox consult Code(s): F10.230 - ALCOHOL DEPENDENCE WITH WITHDRAWAL, UNCOMPLICATED (5) Alcoholic liver disease Code(s): K70.9 - ALCOHOLIC LIVER DISEASE, UNSPECIFIED (6) DM Diabetes mellitus type 2 Code(s): E11.9 - TYPE 2 DIABETES MELLITUS WITHOUT COMPLICATIONS (7) HTN (hypertension) Code(s): I10 - ESSENTIAL (PRIMARY) HYPERTENSION (8) Left upper lobe pneumonia Assessment/Plan: on iv abx p[er id Code(s): J18.1 - LOBAR PNEUMONIA, UNSPECIFIED ORGANISM
[2016-10-27] MEDS: POTASSIUM CHLORIDE TABS 20 MEQ TABLET.ER (FP) PO SCH (19:08)
[2016-10-28] MEDS: CEFEPIME 1 GM/100 ML BAG PRE-DOCKED IVPB SCH ×5 (00:32→23:33)
[2016-10-28] MEDS: chlordiazePOXIDE HCL 25 MG CAPSULE PO SCH ×2 (06:23→11:31)
[2016-10-28] MEDS ORDERED: ALBUTEROL SO4 0.083% IH SOL 2.5 MG/3 ML VIAL.NEB. NEB PRN (08:27)
[2016-10-28] MEDS: MULTIVITAMINS (DAILY MVI) TABLET (FP) PO SCH (09:26)
[2016-10-28] MEDS: FOLIC ACID 1 MG TABLET (FP) PO SCH (09:26)
[2016-10-28] MEDS: POTASSIUM CHLORIDE TABS 20 MEQ TABLET.ER (FP) PO SCH (09:26)
[2016-10-28] MEDS: THIAMINE HCL 100 MG TABLET (FP) PO SCH ×2 (09:26→21:12)
--- NOTE | 2016-10-28 09:36 | CON.NEURO ---
Consult Consult Specialty:: neurology - History of Present Illness History of Present Illness: 51-year-old male with history of diabetes and alcohol abuse Presents with mechanical fall. The patient reported that he had several drinks of beer and he fell. ? if he feel out of bed; denies KEANE or focal c/o. Patient denies headache, nausea or vomiting. Patient does report that lately he had some few loose stools and nausea and vomiting. Denies abdominal pain at this time. drinks 6-76 drinks/day.,, last drink yesterday; lives with sister. + temp noted . pt not oriented to date--poor HX. CT HD no acute pathology, mild MVD, and atrophy , no bleed. - Past Medical History Endocrine: Yes: Diabetes Mellitus - Alcohol/Substance Use Hx Alcohol Use: Yes - Smoking History Smoking history: Never smoked Have you smoked in the past 12 months: No Aproximately how many cigarettes per day: 0 Home Medications - Allergies Allergies/Adverse Reactions: Allergies Allergy/AdvReac Type Severity Reaction Status Date / Time No Known Allergies Allergy Verified 10/26/16 11:29 - Home Medications Home Medications: Ambulatory Orders Enalapril Maleate [Vasotec -] 5 mg PO DAILY #30 tablet 09/07/16 Metformin HCl [Glucophage -] 1,000 mg PO BID@0700,1630 #60 tablet 09/07/16 Family Disease History - Family Disease History Family Disease History: Other: Father (ETOH DEPENDENCE ) Physical Exam-Neuro Vital Signs: Vital Signs Temperature 100.1 F H 10/28/16 06:00 Pulse Rate 101 H 10/28/16 08:35 Respiratory Rate 20 10/28/16 06:00 Blood Pressure 109/65 10/28/16 06:00 O2 Sat by Pulse Oximetry (%) 93 L 10/28/16 08:35 Constitutional: Yes: No Distress Labs: CBC, BMP 10/27/16 07:35 10/27/16 07:35 - Neuro Exam Level Of Consciousness: Yes: Alert (awake and conversive though confused, not orienetd to date, knows address, R periorbital contusion, EOMI, no facial, motor : no focal weakness, no asterixis, planatars down ) NIH Stroke Scale - Total Score NIH Stroke Scale Score: 0 Imaging - Results Cat Scan: Report Reviewed, Image Reviewed Problem List - Problems (1) ETOH abuse Code(s): F10.10 - ALCOHOL ABUSE, UNCOMPLICATED (2) Head trauma Code(s): S09.90XA - UNSPECIFIED INJURY OF HEAD, INITIAL ENCOUNTER Assessment/Plan 51-year-old male with history of diabetes and alcohol abuse Presents with mechanical fall. The patient reported that he had several drinks of beer and he fell. ? if he feel out of bed; denies KEANE or focal c/o. Patient denies headache, nausea or vomiting. Patient does report that lately he had some few loose stools and nausea and vomiting.drinks 6-76 drinks/day., last drink yesterday; lives with sister. + temp noted . pt not oriented to date--poor HX. CT HD no acute pathology, mild MVD, and atrophy , no bleed. ACTIVE ETOHer with fall, no signs stroke, meningitis, subdural; agree LIBRIUM, though no clear signs of withdrawal thiamine, folate, B12 fever WILSON S/W consider rehab Dr Rhoades [phone]
[2016-10-28 10:40] LABS: ALBUMIN 1.8 g/dl (3.4-5.0); ALK PHOS 151 U/L (45-117); ANION GAP 10 (8-16); BILIRUBIN,TOTAL 1.8 mg/dL (0.2-1.0); CALCIUM 7.3 mg/dL (8.5-10.1); CO2 25 mmol/L (21-32); CREATININE 0.6 mg/dL (0.7-1.3); GLUCOSE,RANDOM 226 mg/dL (74-106); SGOT/AST 98 U/L (15-37); SGPT/ALT 39 U/L (12-78); TOT PROT 6.4 g/dl (6.4-8.2)
[2016-10-28] MEDS: IBUPROFEN 400 MG TABLET (FP) PO PRN (11:36)
--- NOTE | 2016-10-28 11:51 | EKG ---
Test Reason : Blood Pressure : / mmHG Vent. Rate : 092 BPM Atrial Rate : 092 BPM P-R Int : 146 ms QRS Dur : 102 ms QT Int : 426 ms P-R-T Axes : 000 087 029 degrees QTc Int : 526 ms NORMAL SINUS RHYTHM PROLONGED QT ABNORMAL ECG WHEN COMPARED WITH ECG OF 06-AUG-2016 21:59, QT HAS LENGTHENED Confirmed by AVELINA DEJESUS, CHELLY ([id number]) on 10/28/2016 11:50:48 AM Referred By: Confirmed By:CHELLY QUAN MD
--- NOTE | 2016-10-28 11:52 | CONSULT ---
Consultation: REQUESTING PROVIDER: CONSULT REQUEST: We have been asked to medically evaluate this patient for pneumonia. HISTORY OF PRESENT ILLNESS: 51 yo man w/ PMH of DM2 and alcohol abuse presents after mechanical fall while intoxicated, now with fever, cough and worsening respiratory status. Pt presented to the EDPt reports feeling feverish 2 days prior to admission and endorses a productive cough, but was unable to provide a clear timeline due to MS. States that he has been coughing up a moderate amount of green phlegm intermittently. Upon presentation to the ED, Pt was found with severe lyte abnormalities and was managed for hypoK/hypoNa. He was tachycardic (103), tachypneic (RR 32), and hypotensive (98/55), possible due to dehydration from diarrhea/vomiting. He denies any sick contacts and any prior Hx of CV or pulmonary conditions. Denies palpitations, KEANE, abdominal pain, congestion or throat pain. Endorse N/V and diarrhea in ED, as well as LE edema. Pt currently on a librium taper for EtOH withdrawal w/ abx coverage for suspected PNA, w/ suspicion for aspiration. Per nursing, pt was initially desatting on NC and was escalated to venti mask 50L 40% overnight. Sats in lower 90% on NC during AM, but tends to desat at night. Concern for sepsis given increased RR, temp and possible PNA. PMHx DM2 Alcohol abuse PSHx Unknown Allergies NKDA Fam Hx Father with EtOH dependence Social Hx Denies alcohol abuse. No Hx of smoking. No drugs. REVIEW OF SYSTEMS: CONSTITUTIONAL: Fever, malaise Absent: fever, chills, diaphoresis, generalized weakness, malaise, loss of appetite, weight change HEENT: Absent: rhinorrhea, nasal congestion, mouth swelling, ear pain, CARDIOVASCULAR: peripheral edema Absent: chest pain, palpitations, lightheadedness RESPIRATORY: Productive cough, wheezing Absent: shortness of breath, dyspnea with exertion, hemoptysis GASTROINTESTINAL: diarrhea, N/V Absent: abdominal pain, abdominal distension Genitourinary: Absent: dysuria, frequency, urgency, hesitancy, hematuria, flank pain, genital pain MUSCULOSKELETAL: Back Pain Absent: neck pain SKIN: Absent: rash NEUROLOGIC: Absent: headache PHYSICAL EXAMINATION Vital Signs - 24 hr 10/27/16 10/27/16 10/27/16 11:12 15:33 18:00 Temperature 97.8 F 99.1 F Pulse Rate 85 89 109 H Respiratory 24 22 18 Rate Blood Pressure 104/50 102/58 101/61 O2 Sat by Pulse Oximetry (%) 10/27/16 10/27/16 10/27/16 21:00 22:04 22:09 Temperature 99.8 F H 102.1 F H Pulse Rate 108 H Respiratory 22 Rate Blood Pressure 125/66 O2 Sat by Pulse 93 L Oximetry (%) 10/28/16 10/28/16 10/28/16 02:00 06:00 07:45 Temperature 98.9 F 100.1 F H 98.7 F Pulse Rate 87 104 H 96 H Respiratory 20 20 32 H Rate Blood Pressure 113/41 109/65 96/50 O2 Sat by Pulse Oximetry (%) 10/28/16 08:35 Temperature Pulse Rate 101 H Respiratory Rate Blood Pressure O2 Sat by Pulse 93 L Oximetry (%) GENERAL: Somnolent, waxing and waning MS. In no acute distress. HEAD: Normal with no signs of trauma. Hot to touch. EYES: Pupils equal, round and reactive to light, extraocular movements intact, sclera icteric, conjunctiva clear. No lid lag. EARS, NOSE, THROAT: Ears normal, nares patent, oropharynx clear without exudates. Moist mucous membranes. NECK: Significant laryngeal adiposity. No lymphadenopathy, JVD, or masses. LUNGS: BL rhonchi across all lung quintero. Significant inspiratory/expiratory wheezes bilaterally across all field, more prominent in superior lung field. No accessory muscle use. HEART: Regular rate and rhythm, normal S1 and S2. Possible grade II/ blowing systolic murmur at LUSB. PMI not displaced. No clicks or rubs. ABDOMEN: Soft, nontender, distended, normoactive bowel sounds, no guarding, no rebound, no masses. Possible ascites. No splenomegaly. Liver span decreased. MUSCULOSKELETAL: Normal range of motion at all joints. No bony deformities or tenderness. No CVA tenderness. UPPER EXTREMITIES: 2+ pulses, warm, well-perfused. No cyanosis. No clubbing. No peripheral edema. LOWER EXTREMITIES: 2+ pulses, warm, well-perfused. No calf tenderness. 1+ BL edema. NEUROLOGICAL: Slow, mumbled speech. Gait not evaluated. PSYCHIATRIC: Cooperative. Intermittent eye contact. Somnolent and intermittently directable. SKIN: Warm, dry, normal turgor, no rashes or lesions noted. Laboratory Results - last 24 hr 10/28/16 10/28/16 05:45 09:45 Sodium 131 L Potassium 3.6 Chloride 96 L Carbon Dioxide 25 Anion Gap 10 BUN 8 D Creatinine 0.6 L Creat Clearance w eGFR > 60 POC Glucometer 134 Random Glucose 226 H D Calcium 7.3 L Total Bilirubin 1.8 H AST 98 H ALT 39 Alkaline Phosphatase 151 H Total Protein 6.4 Albumin 1.8 L Laboratory Tests 10/26/16 10/26/16 10/26/16 12:29 12:29 12:29 WBC 7.9 RBC 3.93 L Hgb 12.2 Hct 34.8 L MCV 88.6 MCH 31.1 MCHC 35.2 RDW 15.3 D Plt Count 53 L D MPV 10.1 Neutrophils % 77.9 D Lymphocytes % 10.6 D Monocytes % 11.1 H Eosinophils % 0.0 D Basophils % 0.4 Sodium 119 L* D Potassium 2.7 L* D Chloride 83 L D Carbon Dioxide 26 Anion Gap 10 BUN 6 L Creatinine 0.8 D Creat Clearance w eGFR > 60 POC Glucometer Random Glucose 158 H Calcium 7.2 L Total Bilirubin 1.6 H D AST 122 H D ALT 41 D Alkaline Phosphatase 146 H D Total Protein 7.3 Albumin 2.3 L Alcohol, Quantitative 153.8 H* 10/27/16 10/27/16 10/28/16 07:35 07:35 05:45 WBC 7.7 RBC 4.06 Hgb 12.6 Hct 36.1 MCV 88.9 MCH 31.0 MCHC 34.8 RDW 15.8 Plt Count 53 L MPV 10.0 Neutrophils % 84.3 H Lymphocytes % 7.7 L D Monocytes % 7.2 Eosinophils % 0.0 Basophils % 0.8 Sodium 125 L Potassium 3.0 L Chloride 89 L Carbon Dioxide 28 Anion Gap 8 BUN 5 L Creatinine 0.5 L D Creat Clearance w eGFR > 60 POC Glucometer 134 Random Glucose 163 H Calcium 7.3 L Total Bilirubin 1.6 H AST 120 H ALT 41 Alkaline Phosphatase 130 H Total Protein 6.9 Albumin 2.1 L Alcohol, Quantitative 10/28/16 09:45 WBC RBC Hgb Hct MCV MCH MCHC RDW Plt Count MPV Neutrophils % Lymphocytes % Monocytes % Eosinophils % Basophils % Sodium 131 L Potassium 3.6 Chloride 96 L Carbon Dioxide 25 Anion Gap 10 BUN 8 D Creatinine 0.6 L Creat Clearance w eGFR > 60 POC Glucometer Random Glucose 226 H D Calcium 7.3 L Total Bilirubin 1.8 H AST 98 H ALT 39 Alkaline Phosphatase 151 H Total Protein 6.4 Albumin 1.8 L Alcohol, Quantitative Micro: Blood Culture x2 pending CXR: (10/27 - my read) - AP lordotic. No prior films. Possible cardiomegaly. Prominent diffuse opacity throughout L mid and lower lung quintero, suggestive of possible consolidation. Consider CT scan per radiology recommendation. Active Medications Generic Name Dose Route Start Last Admin Trade Name Freq PRN Reason Stop Dose Admin Albuterol Sulfate 1 amp 10/28/16 08:27 10/28/16 08:51 Ventolin 0.083% Nebulizer Soln - NEB 1 amp Q4H PRN Administration SHORT OF BREATH/WHEEZING Cefepime HCl 1 gm 10/27/16 16:00 10/28/16 09:20 Maxipime 1gm Ivpb Pre-Docked IVPB 1 gm Q8H SONIDO Administration Protocol Chlordiazepoxide HCl 25 mg 10/26/16 15:23 Librium - PO 10/29/16 15:22 Q4H PRN WITHDRAWAL(CONT SUBST) Chlordiazepoxide HCl 15 mg 10/28/16 17:00 Librium - PO 10/29/16 11:01 H1Q-FLE SONIDO Folic Acid 1 mg 10/27/16 10:00 10/28/16 09:26 Folic Acid - PO 1 mg DAILY SONIDO Administration Sodium Chloride 1,000 mls @ 75 mls/hr 10/26/16 20:45 10/27/16 22:01 Normal Saline - IV Not Given ASDIR SONIDO Ibuprofen 400 mg 10/26/16 20:46 10/27/16 22:10 Motrin - PO 400 mg Q6H PRN Administration PAIN Multivitamins/Minerals/Vitamin C 1 tab 10/27/16 10:00 10/28/16 09:26 Tab-A-Vit - PO 1 tab DAILY SONIDO Administration Potassium Chloride 40 meq 10/27/16 18:30 10/28/16 09:26 K-Dur - PO 40 meq DAILY SONIDO Administration Thiamine HCl 100 mg 10/26/16 22:00 10/28/16 09:26 Vitamin B1 - PO 100 mg BID SONIDO Administration ASSESSMENT/PLAN: Assessment: 51 yo man w/ PMH of DM2 and alcohol abuse presents after mechanical fall during suspect episode of intoxication, now with fever, cough and worsening respiratory status. PE notable for BL diffuse rhonchi and inspiratory/ exspiratory wheeze, calor, and scleral icterus. CXR notable for DAVINA consolidation. Critical to differentiate infectious sxs vs. withdrawal sxs. Pt' s clinical condition consisted with PNA/sepsis possibly secondary to aspiration during intoxication. Pt meets 3/4 SIRS criteria and is hypotensive, concerning for sepsis. Possible KAR given body habitus, contributing to desat during PM. Plan: #Hypoxemic respiratory failure - Monitor O2 sats on NC. Escalate to Venti mask if hypoxic. - Consider CPAP in PM w/ possible KAR - Brochodilators #PNA/Sepsis - CT scan for further eval of consolidation/lung parenchyma - Sputum Cx, Urine Cx - Legionella Ag, Strep Pneumo Ag - Trend fever, WBC - IV hydration. Monitor volume status - Lactate - Current Abx Cefepime, clindamycin for CAP coverage. - I&Os, MAPs - Monitor MS #Suspected KAR - Sleep Study Joaquin Giraldo MD, PGY1 Will discuss with attending, Dr. Nicholas Dispo: We will continue to follow the patient. Thank you for this consultative opportunity. Problem List - Problems (1) Left upper lobe pneumonia Code(s): J18.1 - LOBAR PNEUMONIA, UNSPECIFIED ORGANISM (2) Alcohol dependence with uncomplicated withdrawal Code(s): F10.230 - ALCOHOL DEPENDENCE WITH WITHDRAWAL, UNCOMPLICATED (3) Sepsis associated hypotension Code(s): A41.9 - SEPSIS, UNSPECIFIED ORGANISM Visit type - Emergency Visit Emergency Visit: No - New Patient This patient is new to me today: Yes Date on this admission: 10/28/16 - Critical Care Critical Care patient: No
[2016-10-28 13:48] LABS: ARTERIAL BLD GAS O2 SATURATION 95.8 % (90-98.9); ARTERIAL BLOOD GAS BASE EXCESS 2.1 meq/l (-2-2); ARTERIAL BLOOD GAS HCO3 25.4 meq/L (22-26); ARTERIAL BLOOD GAS PO2 70.4 mmHg (80-100); ARTERIAL BLOOD GAS pH 7.46 (7.35-7.45)
[2016-10-28 13:52] LABS: ALLENS TEST POSITIVE
[2016-10-28 13:53] LABS: ART PUNCT SITE LEFT RADIAL; LPM/O2% 3LPM; PT. ON O2? yes; TYPE OF O2 nasal cannula
--- NOTE | 2016-10-28 14:26 | PN ---
Progress Note, Physician History of Present Illness: patient continues to spike fever also resp issues incontinent - Current Medication List Current Medications: Active Medications Albuterol Sulfate (Ventolin 0.083% Nebulizer Soln -) 1 amp NEB Q4H PRN PRN Reason: SHORT OF BREATH/WHEEZING Last Admin: 10/28/16 08:51 Dose: 1 amp Albuterol/Ipratropium (Duoneb -) 1 amp NEB QIDR SONIDO Cefepime HCl (Maxipime 1gm Ivpb Pre-Docked) 1 gm IVPB Q8H SONIDO PRN Reason: Protocol Last Admin: 10/28/16 09:20 Dose: 1 gm Chlordiazepoxide HCl (Librium -) 25 mg PO Q4H PRN PRN Reason: WITHDRAWAL(CONT SUBST) Stop: 10/29/16 15:22 Chlordiazepoxide HCl (Librium -) 15 mg PO Q1O-SZM SONIDO Stop: 10/29/16 11:01 Folic Acid (Folic Acid -) 1 mg PO DAILY [facility] Last Admin: 10/28/16 09:26 Dose: 1 mg Sodium Chloride (Normal Saline -) 1,000 mls @ 100 mls/hr IV ASDIR SONIDO Clindamycin Phosphate 300 mg/ (Dextrose) 50 mls @ 104 mls/hr IVPB Q8H-IV SONIDO Ibuprofen (Motrin -) 400 mg PO Q6H PRN PRN Reason: PAIN Last Admin: 10/28/16 11:36 Dose: 400 mg Multivitamins/Minerals/Vitamin C (Tab-A-Vit -) 1 tab PO DAILY [facility] Last Admin: 10/28/16 09:26 Dose: 1 tab Potassium Chloride (K-Dur -) 40 meq PO DAILY SONIDO Last Admin: 10/28/16 09:26 Dose: 40 meq Thiamine HCl (Vitamin B1 -) 100 mg PO BID SONIDO Last Admin: 10/28/16 09:26 Dose: 100 mg - Objective Vital Signs: Vital Signs Temperature 101 F H 10/28/16 13:07 Pulse Rate 87 10/28/16 14:07 Respiratory Rate 36 H 10/28/16 14:07 Blood Pressure 92/53 10/28/16 14:07 O2 Sat by Pulse Oximetry (%) 93 L 10/28/16 08:35 Constitutional: Yes: Moderate Distress Eyes: Yes: Conjunctiva Clear Cardiovascular: Yes: Regular Rate and Rhythm Respiratory: Yes: Regular, Poor Air Entry, Rhonchi Gastrointestinal: Yes: Normal Bowel Sounds, Soft Musculoskeletal: Yes: WNL Extremities: Yes: WNL Neurological: Yes: Alert, Other Labs: CBC, BMP 10/28/16 09:45 Assessment/Plan Problem List - Problems (1) ETOH abuse Code(s): F10.10 - ALCOHOL ABUSE, UNCOMPLICATED (2) Hypokalemia Code(s): E87.6 - HYPOKALEMIA (3) Hyponatremia Code(s): E87.1 - HYPO-OSMOLALITY AND HYPONATREMIA (4) Alcohol dependence with uncomplicated withdrawal Code(s): F10.230 - ALCOHOL DEPENDENCE WITH WITHDRAWAL, UNCOMPLICATED 5 fever 6 asp pna looking at the xray i think patient has aspirated plan continue cefipime will add clinda hydration monitor fevers await for cx report lactic acid pul following
[2016-10-28] MEDS: SODIUM CHLORIDE 1,000 ML IV SCH ×2 (14:49→23:33)
[2016-10-28] MEDS: CLINDAMYCIN 300 MG PREMIX IVPB 50 ML IVPB SCH ×3 (15:00→18:04)
[2016-10-28 15:25] LABS: MCH 30.3 pg (25.7-33.7); MCHC 33.2 g/dl (32.0-35.9); MEAN CELL VOLUME 91.3 fl (80-96); MEAN PLT VOLUME 11.5 fl (7.5-11.1); PLATELET COUNT 73 K/MM3 (134-434); RDW 16.5 % (11.9-15.9); WHITE BLOOD COUNT 8.5 K/mm3 (4.0-10.0)
[2016-10-28] MEDS ORDERED: PT OWN MED DRAWER 7, Y5N ONE (16:47)
--- NOTE | 2016-10-28 16:52 | PN ---
Progress Note, Physician History of Present Illness: AWAKE - Current Medication List Current Medications: Active Medications Albuterol Sulfate (Ventolin 0.083% Nebulizer Soln -) 1 amp NEB Q4H PRN PRN Reason: SHORT OF BREATH/WHEEZING Last Admin: 10/28/16 08:51 Dose: 1 amp Albuterol/Ipratropium (Duoneb -) 1 amp NEB QIDR SONIDO Cefepime HCl (Maxipime 1gm Ivpb Pre-Docked) 1 gm IVPB Q8H SONIDO PRN Reason: Protocol Last Admin: 10/28/16 09:20 Dose: 1 gm Chlordiazepoxide HCl (Librium -) 25 mg PO Q4H PRN PRN Reason: WITHDRAWAL(CONT SUBST) Stop: 10/29/16 15:22 Chlordiazepoxide HCl (Librium -) 15 mg PO [id number] SONIDO Stop: 10/29/16 11:01 Folic Acid (Folic Acid -) 1 mg PO DAILY SONIDO Last Admin: 10/28/16 09:26 Dose: 1 mg Sodium Chloride (Normal Saline -) 1,000 mls @ 100 mls/hr IV ASDIR SONIDO Last Admin: 10/28/16 14:49 Dose: 100 mls/hr Clindamycin Phosphate (Cleocin 300 Mg Premix Ivpb) 50 mls @ 100 mls/hr IVPB Q8H -IV SONIDO Last Admin: 10/28/16 16:12 Dose: 100 mls/hr Ibuprofen (Motrin -) 400 mg PO Q6H PRN PRN Reason: PAIN Last Admin: 10/28/16 11:36 Dose: 400 mg Multivitamins/Minerals/Vitamin C (Tab-A-Vit -) 1 tab PO DAILY SONIDO Last Admin: 10/28/16 09:26 Dose: 1 tab Potassium Chloride (K-Dur -) 40 meq PO DAILY SONIDO Last Admin: 10/28/16 09:26 Dose: 40 meq Thiamine HCl (Vitamin B1 -) 100 mg PO BID SONIDO Last Admin: 10/28/16 09:26 Dose: 100 mg - Objective Vital Signs: Vital Signs Temperature 98.6 F 10/28/16 16:14 Pulse Rate 76 10/28/16 16:14 Respiratory Rate 32 H 10/28/16 16:14 Blood Pressure 95/60 10/28/16 16:14 O2 Sat by Pulse Oximetry (%) 93 L 10/28/16 11:00 Constitutional: Yes: No Distress HENT: Yes: Atraumatic Neck: Yes: Supple Cardiovascular: Yes: Regular Rate and Rhythm Respiratory: Yes: Rhonchi Gastrointestinal: Yes: Normal Bowel Sounds Extremities: Yes: WNL Neurological: Yes: Alert Labs: CBC, BMP 10/28/16 09:45 10/28/16 09:45 Problem List - Problems (1) ETOH abuse Assessment/Plan: on librium protocol Code(s): F10.10 - ALCOHOL ABUSE, UNCOMPLICATED (2) Hypokalemia Assessment/Plan: replaced Code(s): E87.6 - HYPOKALEMIA (3) Hyponatremia Assessment/Plan: resolving Code(s): E87.1 - HYPO-OSMOLALITY AND HYPONATREMIA (4) Alcohol dependence with uncomplicated withdrawal Assessment/Plan: prn ativan detox consult Code(s): F10.230 - ALCOHOL DEPENDENCE WITH WITHDRAWAL, UNCOMPLICATED (5) Alcoholic liver disease Code(s): K70.9 - ALCOHOLIC LIVER DISEASE, UNSPECIFIED (6) DM Diabetes mellitus type 2 Code(s): E11.9 - TYPE 2 DIABETES MELLITUS WITHOUT COMPLICATIONS (7) HTN (hypertension) Code(s): I10 - ESSENTIAL (PRIMARY) HYPERTENSION (8) Left upper lobe pneumonia Assessment/Plan: on iv abx p[er id Code(s): J18.1 - LOBAR PNEUMONIA, UNSPECIFIED ORGANISM Assessment/Plan ABG DONE WILL MONITOR PRN OXYGEN CAMP PLACED TO MONITOR URINE OUT PUT
[2016-10-28] MEDS ORDERED: chlordiazePOXIDE 5 MG CAPSULE PO SCH (17:00)
--- NOTE | 2016-10-28 17:26 | PN ---
Teaching Attending Note Name of Resident: Joaquin Giraldo ATTENDING PHYSICIAN STATEMENT I saw and evaluated the patient. I reviewed the resident's note and discussed the case with the resident. I agree with the resident's findings and plan as documented. PULMONARY IMP ACUTE HYPOXEMIC RESPIRATORY FAILURE SEPSIS PNEUMONIA CAP,?ASPIRATION HYPONATREMIA ETOH ELEVATED LFTS S/P FALL PLAN ANTIBIOTICS CULTURES IVF CHEST CT INHALED BRONCHODILATORS STEROIDS X 24HRS LEGIONE[facility] URINARY ANTIGEN MONITORS LYTES/NA,LFTS LIBRIUM DR OSMAN Problem List - Problems (1) ETOH abuse Code(s): F10.10 - ALCOHOL ABUSE, UNCOMPLICATED (2) Head trauma Code(s): S09.90XA - UNSPECIFIED INJURY OF HEAD, INITIAL ENCOUNTER (3) Hypokalemia Code(s): E87.6 - HYPOKALEMIA (4) Hyponatremia Code(s): E87.1 - HYPO-OSMOLALITY AND HYPONATREMIA (5) Left upper lobe pneumonia Code(s): J18.1 - LOBAR PNEUMONIA, UNSPECIFIED ORGANISM (6) Sepsis associated hypotension Code(s): A41.9 - SEPSIS, UNSPECIFIED ORGANISM (7) Alcohol dependence with uncomplicated withdrawal Code(s): F10.230 - ALCOHOL DEPENDENCE WITH WITHDRAWAL, UNCOMPLICATED (8) Hand abrasion Code(s): S60.519A - ABRASION OF UNSPECIFIED HAND, INITIAL ENCOUNTER Qualifiers : Laterality: right (9) Alcoholic liver disease Code(s): K70.9 - ALCOHOLIC LIVER DISEASE, UNSPECIFIED (10) DM Diabetes mellitus type 2 Code(s): E11.9 - TYPE 2 DIABETES MELLITUS WITHOUT COMPLICATIONS (11) Acute hypoxemic respiratory failure Code(s): J96.01 - ACUTE RESPIRATORY FAILURE WITH HYPOXIA
[2016-10-28] MEDS ORDERED: AZITHROMYCIN IVPB 500 MG in DEXTROSE 5%-WATER - 250 ML IVPB SCH (17:45)
[2016-10-28] MEDS: AZITHROMYCIN IVPB 500 MG/250 ML D5W PRE-DOCKED IVPB SCH (18:10)
[2016-10-28] MEDS: ALBUTEROL SO4 2.5/IPRATROPIUM 0.5 INH SOL 3 ML VIAL.NEB. NEB SCH ×2 (18:15→23:13)
[2016-10-28] MEDS ORDERED: SODIUM CHLORIDE 250 ML IV ONE (19:15)
[2016-10-28] MEDS ORDERED: SODIUM CHLORIDE 500 ML IV ONE (20:00)
--- NOTE | 2016-10-28 22:52 | PN ---
Progress Note (short form) - Note Progress Note: Pulm/CCM Pt seen earlier today by Dr Nicholas. Follow up at request of Dr Portillo out of concern for mental status and soft BP requiring fluid CC: cough HPI: Briefly Mr Stein is a 51-year-old male with history of diabetes and alcohol abuse Presents with mechanical fall out of bed, striking head but no LOC after significant ETOH use. Inital workup: CT head negatve. Blood ETOH 153. Cxr with LLL infiltrate, started on abx. Concern for ETOH withdrawal prompted starting librium, on thiamine/folate as well. Pt became more hypotensive and somulent this morning, Librium was held and some fluid 2L was given. ID following (on clinda, cefepime, azith). Pulm following for hypoxia requiring 3- 4 L NC and infiltrate. No new fever. Current Medications Generic Name Dose Route Start Last Admin Trade Name Freq PRN Reason Stop Dose Admin Albuterol Sulfate 1 amp 10/28/16 08:27 10/28/16 08:51 Ventolin 0.083% Nebulizer Soln - NEB 1 amp Q4H PRN Administration SHORT OF BREATH/WHEEZING Albuterol/Ipratropium 1 amp 10/28/16 18:00 10/28/16 18:15 Duoneb - NEB 1 amp QIDR SONIDO Administration Azithromycin 500 mg 10/28/16 18:00 10/28/16 18:10 Zithromax 500mg Ivpb (Pre-Docked) IVPB 500 mg DAILY SONIDO Administration Cefepime HCl 1 gm 10/27/16 16:00 10/28/16 17:21 Maxipime 1gm Ivpb Pre-Docked IVPB 1 gm Q8H SONIDO Administration Protocol Chlordiazepoxide HCl 25 mg 10/26/16 15:23 Librium - PO 10/29/16 15:22 Q4H PRN WITHDRAWAL(CONT SUBST) Folic Acid 1 mg 10/27/16 10:00 10/28/16 09:26 Folic Acid - PO 1 mg DAILY SONIDO Administration Sodium Chloride 1,000 mls @ 100 mls/hr 10/28/16 14:00 10/28/16 14:49 Normal Saline - IV 100 mls/hr ASDIR SONIDO Administration Clindamycin Phosphate 50 mls @ 100 mls/hr 10/28/16 14:30 10/28/16 18:04 Cleocin 300 Mg Premix Ivpb IVPB Not Given Q8H-IV SONIDO Ibuprofen 400 mg 10/26/16 20:46 10/28/16 11:36 Motrin - PO 400 mg Q6H PRN Administration PAIN Multivitamins/Minerals/Vitamin C 1 tab 10/27/16 10:00 10/28/16 09:26 Tab-A-Vit - PO 1 tab DAILY SONIDO Administration Potassium Chloride 40 meq 10/27/16 18:30 10/28/16 09:26 K-Dur - PO 40 meq DAILY SONIDO Administration Thiamine HCl 100 mg 10/26/16 22:00 10/28/16 21:12 Vitamin B1 - PO 100 mg BID SONIDO Administration On exam pt for me (1030pm) is awake, alert to person, hospital, (not date). Is able to follow simple commands. Pt c/o non-productive cough but denies SOB, cxpn , N/v/d, fever, chills, rigors. Manual BP 98/60, HR 86, RR 18 non-labored, spo2 97% on 3L. HEENT: NCAT, PERRL PULM: coarse crackles L>R , non productive cough CV: RRR, no m/r/g ABD: soft, NT, ND, +BS EXT: trace edema CBC, BMP 10/28/16 09:45 10/28/16 09:45 labs reviewed CXR reviewed , + LLL infiltrate Pt CIWA-AR < 8 (3), does not appear in acute ETOH withdrawal A/ 51 y/o man with acute etoh intoxication c/b fall, found to have LLL infiltrate c/w aspiration pna P/ -cont current abx -if not worsening hypoxic or dyspnea, can cont with fluid resuscitation as needed -repeat CXR ordered, if worsening would get CT chest, suspect aspiration pna -attempt sputum cxr if possible. -nebs as needed -cont to hold librium, not tremulous -can maintain on floor - cont reorienting pt, high risk for delerium [id number]
[2016-10-29] MEDS: CLINDAMYCIN 300 MG PREMIX IVPB 50 ML IVPB SCH ×3 (01:21→18:20)
[2016-10-29] MEDS: IBUPROFEN 400 MG TABLET (FP) PO PRN (05:48)
[2016-10-29] MEDS: ALBUTEROL SO4 2.5/IPRATROPIUM 0.5 INH SOL 3 ML VIAL.NEB. NEB SCH ×4 (06:17→23:27)
[2016-10-29] MEDS: CEFEPIME 1 GM/100 ML BAG PRE-DOCKED IVPB SCH ×3 (08:29→23:27)
[2016-10-29 08:35] LABS: MCH 30.8 pg (25.7-33.7); MCHC 34.2 g/dl (32.0-35.9); MEAN CELL VOLUME 90.2 fl (80-96); MEAN PLT VOLUME 10.1 fl (7.5-11.1); PLATELET COUNT 90 K/MM3 (134-434); RDW 16.4 % (11.9-15.9); WHITE BLOOD COUNT 9.3 K/mm3 (4.0-10.0)
[2016-10-29 08:53] LABS: INR 1.49 (0.82-1.09); PROTHROMBIN TIME (PATIENT) 16.5 SEC (9.98-11.88)
[2016-10-29 09:27] LABS: AMYLASE 68 U/L (25-115)
[2016-10-29] MEDS ORDERED: PT OWN MED DRAWER 7, Y5N ONE ×2 (10:37→18:16)
[2016-10-29] MEDS: FOLIC ACID 1 MG TABLET (FP) PO SCH (10:39)
[2016-10-29] MEDS: MULTIVITAMINS (DAILY MVI) TABLET (FP) PO SCH (10:39)
[2016-10-29] MEDS: POTASSIUM CHLORIDE TABS 20 MEQ TABLET.ER (FP) PO SCH (10:39)
[2016-10-29] MEDS: THIAMINE HCL 100 MG TABLET (FP) PO SCH ×2 (10:40→22:32)
[2016-10-29] MEDS: AZITHROMYCIN IVPB 500 MG/250 ML D5W PRE-DOCKED IVPB SCH (12:01)
--- NOTE | 2016-10-29 12:17 | PN ---
Progress Note (short form) - Note Progress Note: PULMONARY CT chest with large left sided consolidation. Febrile to 101.1 this AM. Still short of breath with cough productive of green sputum. Last Vital Signs Temp Pulse Resp BP Pulse Ox 98.9 F 94 H 22 118/69 96 10/29/16 06:43 10/29/16 06:00 10/29/16 06:00 10/29/16 06:00 10/28/16 22:00 Gen: tachypneic at rest Heart: RRR Lung: left sided rhonchi, rales Abd: soft, nontender Ext: no edema CBC, BMP 10/29/16 08:00 10/28/16 09:45 Hepatic Panel Total Bilirubin 1.8 mg/dL (0.2-1.0) H 10/28/16 09:45 AST 98 U/L (15-37) H 10/28/16 09:45 ALT 39 U/L (12-78) 10/28/16 09:45 Alkaline Phosphatase 151 U/L (45-117) H 10/28/16 09:45 Albumin 1.8 g/dl (3.4-5.0) L 10/28/16 09:45 Active Medications Albuterol Sulfate (Ventolin 0.083% Nebulizer Soln -) 1 amp NEB Q4H PRN PRN Reason: SHORT OF BREATH/WHEEZING Last Admin: 10/28/16 08:51 Dose: 1 amp Albuterol/Ipratropium (Duoneb -) 1 amp NEB QIDR SONIDO Last Admin: 10/29/16 06:17 Dose: 1 amp Azithromycin (Zithromax 500mg Ivpb (Pre-Docked)) 500 mg IVPB DAILY [facility] Last Admin: 10/29/16 12:01 Dose: 500 mg Cefepime HCl (Maxipime 1gm Ivpb Pre-Docked) 1 gm IVPB Q8H SONIDO PRN Reason: Protocol Last Admin: 10/29/16 08:29 Dose: 1 gm Chlordiazepoxide HCl (Librium -) 25 mg PO Q4H PRN PRN Reason: WITHDRAWAL(CONT SUBST) Stop: 10/29/16 15:22 Folic Acid (Folic Acid -) 1 mg PO DAILY [facility]ON[facility]O Last Admin: 10/29/16 10:39 Dose: 1 mg Sodium Chloride (Normal Saline -) 1,000 mls @ 100 mls/hr IV ASDIR [facility] Last Admin: 10/28/16 23:33 Dose: 100 mls/hr Clindamycin Phosphate (Cleocin 300 Mg Premix Ivpb) 50 mls @ 100 mls/hr IVPB Q8H -IV SONIDO Last Admin: 10/29/16 10:40 Dose: 100 mls/hr Ibuprofen (Motrin -) 400 mg PO Q6H PRN PRN Reason: PAIN Last Admin: 10/29/16 05:48 Dose: 400 mg Multivitamins/Minerals/Vitamin C (Tab-A-Vit -) 1 tab PO DAILY [facility] Last Admin: 10/29/16 10:39 Dose: 1 tab Potassium Chloride (K-Dur -) 40 meq PO DAILY [facility] Last Admin: 10/29/16 10:39 Dose: 40 meq Thiamine HCl (Vitamin B1 -) 100 mg PO BID [facility] Last Admin: 10/29/16 10:40 Dose: 100 mg A/P Acute Hypoxic Respiratory Failure Pneumonia Sepsis Elevated LFTs Hyponatremia Thromboctyopenia - continue antibiotics - f/u cultures - O2 to keep Spo2 >90% - inhaled bronchodilators - monitor lytes, platelets - aspiration precautions - DVT prophylaxis - will need outpt f/u of chest imaging to ensure resolution of infiltrate
[2016-10-29] MEDS: SODIUM CHLORIDE 1,000 ML IV SCH (16:29)
--- NOTE | 2016-10-29 16:38 | PN ---
Progress Note, Physician History of Present Illness: AWAKE - Current Medication List Current Medications: Active Medications Albuterol Sulfate (Ventolin 0.083% Nebulizer Soln -) 1 amp NEB Q4H PRN PRN Reason: SHORT OF BREATH/WHEEZING Last Admin: 10/28/16 08:51 Dose: 1 amp Albuterol/Ipratropium (Duoneb -) 1 amp NEB QIDR [facility] Last Admin: 10/29/16 11:45 Dose: 1 amp Azithromycin (Zithromax 500mg Ivpb (Pre-Docked)) 500 mg IVPB DAILY [facility] Last Admin: 10/29/16 12:01 Dose: 500 mg Cefepime HCl (Maxipime 1gm Ivpb Pre-Docked) 1 gm IVPB Q8H [facility] PRN Reason: Protocol Last Admin: 10/29/16 16:30 Dose: 1 gm Folic Acid (Folic Acid -) 1 mg PO DAILY [facility] Last Admin: 10/29/16 10:39 Dose: 1 mg Sodium Chloride (Normal Saline -) 1,000 mls @ 100 mls/hr IV ASDIR [facility] Last Admin: 10/29/16 16:29 Dose: 100 mls/hr Clindamycin Phosphate (Cleocin 300 Mg Premix Ivpb) 50 mls @ 100 mls/hr IVPB Q8H -IV [facility] Last Admin: 10/29/16 10:40 Dose: 100 mls/hr Ibuprofen (Motrin -) 400 mg PO Q6H PRN PRN Reason: PAIN Last Admin: 10/29/16 05:48 Dose: 400 mg Multivitamins/Minerals/Vitamin C (Tab-A-Vit -) 1 tab PO DAILY [facility] Last Admin: 10/29/16 10:39 Dose: 1 tab Potassium Chloride (K-Dur -) 40 meq PO DAILY [facility] Last Admin: 10/29/16 10:39 Dose: 40 meq Thiamine HCl (Vitamin B1 -) 100 mg PO BID [facility] Last Admin: 10/29/16 10:40 Dose: 100 mg - Objective Vital Signs: Vital Signs Temperature 98.2 F 10/29/16 14:51 Pulse Rate 93 H 10/29/16 14:51 Respiratory Rate 22 10/29/16 14:51 Blood Pressure 93/57 10/29/16 14:51 O2 Sat by Pulse Oximetry (%) 93 L 10/29/16 11:00 HENT: Yes: Atraumatic Neck: Yes: Supple Cardiovascular: Yes: Regular Rate and Rhythm Respiratory: Yes: Rales, Rhonchi Gastrointestinal: Yes: Normal Bowel Sounds Extremities: Yes: WNL Neurological: Yes: Alert Labs: CBC, BMP 10/29/16 08:00 10/28/16 09:45 INR, PTT INR 1.49 (0.82-1.09) H 10/29/16 08:05 Problem List - Problems (1) ETOH abuse Assessment/Plan: on librium protocol...ON HOLD DUE TO DROWSINESS Code(s): F10.10 - ALCOHOL ABUSE, UNCOMPLICATED (2) Hypokalemia Assessment/Plan: RESOLVED Code(s): E87.6 - HYPOKALEMIA (3) Hyponatremia Assessment/Plan: RESOLVING Code(s): E87.1 - HYPO-OSMOLALITY AND HYPONATREMIA (4) Alcohol dependence with uncomplicated withdrawal Assessment/Plan: prn ativan detox consult Code(s): F10.230 - ALCOHOL DEPENDENCE WITH WITHDRAWAL, UNCOMPLICATED (5) Alcoholic liver disease Code(s): K70.9 - ALCOHOLIC LIVER DISEASE, UNSPECIFIED (6) DM Diabetes mellitus type 2 Code(s): E11.9 - TYPE 2 DIABETES MELLITUS WITHOUT COMPLICATIONS (7) HTN (hypertension) Assessment/Plan: hypotension...on iv fluids Code(s): I10 - ESSENTIAL (PRIMARY) HYPERTENSION (8) Left upper lobe pneumonia Assessment/Plan: on iv abx p[er id cxr done has consolidation on right lung base Code(s): J18.1 - LOBAR PNEUMONIA, UNSPECIFIED ORGANISM
--- NOTE | 2016-10-29 16:55 | PN ---
Progress Note, Physician History of Present Illness: fevers improving patient still continues to be drowsy eating - Current Medication List Current Medications: Active Medications Albuterol Sulfate (Ventolin 0.083% Nebulizer Soln -) 1 amp NEB Q4H PRN PRN Reason: SHORT OF BREATH/WHEEZING Last Admin: 10/28/16 08:51 Dose: 1 amp Albuterol/Ipratropium (Duoneb -) 1 amp NEB QIDR [facility] Last Admin: 10/29/16 11:45 Dose: 1 amp Azithromycin (Zithromax 500mg Ivpb (Pre-Docked)) 500 mg IVPB DAILY [facility] Last Admin: 10/29/16 12:01 Dose: 500 mg Cefepime HCl (Maxipime 1gm Ivpb Pre-Docked) 1 gm IVPB Q8H [facility] PRN Reason: Protocol Last Admin: 10/29/16 16:30 Dose: 1 gm Folic Acid (Folic Acid -) 1 mg PO DAILY [facility] Last Admin: 10/29/16 10:39 Dose: 1 mg Sodium Chloride (Normal Saline -) 1,000 mls @ 100 mls/hr IV ASDIR S[facility]IDO Last Admin: 10/29/16 16:29 Dose: 100 mls/hr Clindamycin Phosphate (Cleocin 300 Mg Premix Ivpb) 50 mls @ 100 mls/hr IVPB Q8H -IV [facility] Last Admin: 10/29/16 10:40 Dose: 100 mls/hr Ibuprofen (Motrin -) 400 mg PO Q6H PRN PRN Reason: PAIN Last Admin: 10/29/16 05:48 Dose: 400 mg Multivitamins/Minerals/Vitamin C (Tab-A-Vit -) 1 tab PO DAILY [facility] Last Admin: 10/29/16 10:39 Dose: 1 tab Potassium Chloride (K-Dur -) 40 meq PO DAILY [facility] Last Admin: 10/29/16 10:39 Dose: 40 meq Thiamine HCl (Vitamin B1 -) 100 mg PO BID [facility] Last Admin: 10/29/16 10:40 Dose: 100 mg - Objective Vital Signs: Vital Signs Temperature 98.2 F 10/29/16 14:51 Pulse Rate 93 H 10/29/16 14:51 Respiratory Rate 22 10/29/16 14:51 Blood Pressure 93/57 10/29/16 14:51 O2 Sat by Pulse Oximetry (%) 93 L 10/29/16 11:00 Constitutional: Yes: Calm, Mild Distress Cardiovascular: Yes: Regular Rate and Rhythm Respiratory: Yes: Regular, On Nasal O2, Rhonchi, Other Gastrointestinal: Yes: Normal Bowel Sounds, Soft Musculoskeletal: Yes: WNL Extremities: Yes: WNL Integumentary: Yes: WNL Neurological: Yes: Alert, Oriented Psychiatric: Yes: Alert Labs: CBC, BMP 10/29/16 08:00 10/28/16 09:45 INR, PTT INR 1.49 (0.82-1.09) H 10/29/16 08:05 Assessment/Plan Problem List - Problems (1) ETOH abuse Code(s): F10.10 - ALCOHOL ABUSE, UNCOMPLICATED (2) Hypokalemia Code(s): E87.6 - HYPOKALEMIA (3) Hyponatremia Code(s): E87.1 - HYPO-OSMOLALITY AND HYPONATREMIA (4) Alcohol dependence with uncomplicated withdrawal Code(s): F10.230 - ALCOHOL DEPENDENCE WITH WITHDRAWAL, UNCOMPLICATED 5 fever 6 asp pna looking at the xray i think patient has aspirated plan continue cefipime ct c clinda hydration monitor fevers
[2016-10-30] MEDS: CLINDAMYCIN 300 MG PREMIX IVPB 50 ML IVPB SCH ×2 (02:05→11:44)
[2016-10-30] MEDS: ALBUTEROL SO4 2.5/IPRATROPIUM 0.5 INH SOL 3 ML VIAL.NEB. NEB SCH ×4 (06:25→23:03)
[2016-10-30] MEDS ORDERED: PNEUMOC 13-VAL CONJ-DIP CRM/PF 0.5 ML DISP.SYRIN IM ONE (07:11)
[2016-10-30] MEDS ORDERED: PNEUMOCOCCAL 23 VACCINE 0.5 ML VIAL IM ONE (11:00)
[2016-10-30] MEDS: MULTIVITAMINS (DAILY MVI) TABLET (FP) PO SCH (11:48)
[2016-10-30] MEDS: THIAMINE HCL 100 MG TABLET (FP) PO SCH ×2 (11:48→23:15)
[2016-10-30] MEDS: CEFEPIME 1 GM/100 ML BAG PRE-DOCKED IVPB SCH ×2 (11:48→17:24)
[2016-10-30] MEDS: FOLIC ACID 1 MG TABLET (FP) PO SCH (11:48)
[2016-10-30] MEDS: POTASSIUM CHLORIDE TABS 20 MEQ TABLET.ER (FP) PO SCH (11:48)
[2016-10-30] MEDS: AZITHROMYCIN IVPB 500 MG/250 ML D5W PRE-DOCKED IVPB SCH (11:48)
--- NOTE | 2016-10-30 12:07 | PN ---
Teaching Attending Note Name of Resident: Joaquin Giraldo ATTENDING PHYSICIAN STATEMENT I saw and evaluated the patient. I reviewed the resident's note and discussed the case with the resident. I agree with the resident's findings and plan as documented. PULMONARY DROWSY,REMAINS HYPOXIC ON RA,+ SOB,+ COUGH.CHEST CT EXTENSIVE DAVINA CONSOLIDATION, LEFT LL INFILTRATE,RLL INFILTRATE IMP ACUTE HYPOXEMIC RESPIRATORY FAILURE SEPSIS PNEUMONIA CAP,?ASPIRATION HYPONATREMIA ETOH ELEVATED LFTS S/P FALL THROMBOCYTOPENIA PLAN ANTIBIOTICS IVF INHALED BRONCHODILATORS STEROIDS MONITORS LYTES/NA,LFTS DR OSMAN Problem List - Problems (1) ETOH abuse Code(s): F10.10 - ALCOHOL ABUSE, UNCOMPLICATED (2) Head trauma Code(s): S09.90XA - UNSPECIFIED INJURY OF HEAD, INITIAL ENCOUNTER (3) Hypokalemia Code(s): E87.6 - HYPOKALEMIA (4) Hyponatremia Code(s): E87.1 - HYPO-OSMOLALITY AND HYPONATREMIA (5) Left upper lobe pneumonia Code(s): J18.1 - LOBAR PNEUMONIA, UNSPECIFIED ORGANISM (6) Sepsis associated hypotension Code(s): A41.9 - SEPSIS, UNSPECIFIED ORGANISM (7) Alcohol dependence with uncomplicated withdrawal Code(s): F10.230 - ALCOHOL DEPENDENCE WITH WITHDRAWAL, UNCOMPLICATED (8) Hand abrasion Code(s): S60.519A - ABRASION OF UNSPECIFIED HAND, INITIAL ENCOUNTER Qualifiers : Laterality: right (9) Alcoholic liver disease Code(s): K70.9 - ALCOHOLIC LIVER DISEASE, UNSPECIFIED (10) DM Diabetes mellitus type 2 Code(s): E11.9 - TYPE 2 DIABETES MELLITUS WITHOUT COMPLICATIONS (11) Acute hypoxemic respiratory failure Code(s): J96.01 - ACUTE RESPIRATORY FAILURE WITH HYPOXIA Problem List - Problems (1) ETOH abuse Code(s): F10.10 - ALCOHOL ABUSE, UNCOMPLICATED (2) Head trauma Code(s): S09.90XA - UNSPECIFIED INJURY OF HEAD, INITIAL ENCOUNTER (3) Hypokalemia Code(s): E87.6 - HYPOKALEMIA (4) Hyponatremia Code(s): E87.1 - HYPO-OSMOLALITY AND HYPONATREMIA (5) Left upper lobe pneumonia Code(s): J18.1 - LOBAR PNEUMONIA, UNSPECIFIED ORGANISM (6) Sepsis associated hypotension Code(s): A41.9 - SEPSIS, UNSPECIFIED ORGANISM (7) Alcohol dependence with uncomplicated withdrawal Code(s): F10.230 - ALCOHOL DEPENDENCE WITH WITHDRAWAL, UNCOMPLICATED (8) Hand abrasion Code(s): S60.519A - ABRASION OF UNSPECIFIED HAND, INITIAL ENCOUNTER Qualifiers : Laterality: right (9) Alcoholic liver disease Code(s): K70.9 - ALCOHOLIC LIVER DISEASE, UNSPECIFIED (10) DM Diabetes mellitus type 2 Code(s): E11.9 - TYPE 2 DIABETES MELLITUS WITHOUT COMPLICATIONS (11) Acute hypoxemic respiratory failure Code(s): J96.01 - ACUTE RESPIRATORY FAILURE WITH HYPOXIA
[2016-10-30] MEDS: methylPREDNISolone NA SUCC 40 MG/1 ML VIAL IVPB SCH ×2 (14:24→17:23)
--- NOTE | 2016-10-30 15:33 | PN ---
Progress Note, Physician History of Present Illness: improving has been afebrile - Current Medication List Current Medications: Active Medications Albuterol Sulfate (Ventolin 0.083% Nebulizer Soln -) 1 amp NEB Q4H PRN PRN Reason: SHORT OF BREATH/WHEEZING Last Admin: 10/28/16 08:51 Dose: 1 amp Albuterol/Ipratropium (Duoneb -) 1 amp NEB QIDR [facility] Last Admin: 10/30/16 12:05 Dose: 1 amp Azithromycin (Zithromax 500mg Ivpb (Pre-Docked)) 500 mg IVPB [facility]ILY [facility] Last Admin: 10/30/16 11:48 Dose: 500 mg Cefepime HCl (Maxipime 1gm Ivpb Pre-Docked) 1 gm IVPB Q8H [facility] PRN Reason: Protocol Last Admin: 10/30/16 11:48 Dose: 1 gm Folic Acid (Folic Acid -) 1 mg PO DAILY [facility] Last Admin: 10/30/16 11:48 Dose: 1 mg Ibuprofen (Motrin -) 400 mg PO Q6H PRN PRN Reason: PAIN Last Admin: 10/29/16 05:48 Dose: 400 mg Methylprednisolone Sodium Succinate (Solu-Medrol -) 40 mg IVPB Q8H-IV [facility] Last Admin: 10/30/16 14:24 Dose: 40 mg Multivitamins/Minerals/Vitamin C (Tab-A-Vit -) 1 tab PO DAILY [facility] Last Admin: 10/30/16 11:48 Dose: 1 tab Potassium Chloride (K-Dur -) 40 meq PO DAILY [facility] Last Admin: 10/30/16 11:48 Dose: 40 meq Thiamine HCl (Vitamin B1 -) 100 mg PO BID [facility] Last Admin: 10/30/16 11:48 Dose: 100 mg - Objective Vital Signs: Vital Signs Temperature 98.9 F 10/30/16 14:08 Pulse Rate 96 H 10/30/16 14:08 Respiratory Rate 22 10/30/16 14:08 Blood Pressure 119/74 10/30/16 14:08 O2 Sat by Pulse Oximetry (%) 92 L 10/30/16 10:00 Constitutional: Yes: No Distress, Calm Cardiovascular: Yes: Regular Rate and Rhythm Respiratory: Yes: Regular, On Nasal O2, Rhonchi, Other Gastrointestinal: Yes: Normal Bowel Sounds, Soft Musculoskeletal: Yes: WNL Extremities: Yes: WNL Neurological: Yes: Alert Psychiatric: Yes: Alert Labs: CBC, BMP 10/29/16 08:00 10/28/16 09:45 INR, PTT INR 1.49 (0.82-1.09) H 10/29/16 08:05 Assessment/Plan Problem List - Problems (1) ETOH abuse Code(s): F10.10 - ALCOHOL ABUSE, UNCOMPLICATED (2) Hypokalemia Code(s): E87.6 - HYPOKALEMIA (3) Hyponatremia Code(s): E87.1 - HYPO-OSMOLALITY AND HYPONATREMIA (4) Alcohol dependence with uncomplicated withdrawal Code(s): F10.230 - ALCOHOL DEPENDENCE WITH WITHDRAWAL, UNCOMPLICATED 5 fever 6 asp pna looking at the xray i think patient has aspirated plan continue abx will stop clinda patient doing well rest as per primary
--- NOTE | 2016-10-30 19:19 | PN ---
Progress Note, Physician History of Present Illness: AWAKE alert - Current Medication List Current Medications: Active Medications Albuterol Sulfate (Ventolin 0.083% Nebulizer Soln -) 1 amp NEB Q4H PRN PRN Reason: SHORT OF BREATH/WHEEZING Last Admin: 10/28/16 08:51 Dose: 1 amp Albuterol/Ipratropium (Duoneb -) 1 amp NEB QIDR [facility] Last Admin: 10/30/16 12:05 Dose: 1 amp Azithromycin (Zithromax 500mg Ivpb (Pre-Docked)) 500 mg IVPB DAILY [facility] Last Admin: 10/30/16 11:48 Dose: 500 mg Cefepime HCl (Maxipime 1gm Ivpb Pre-Docked) 1 gm IVPB Q8H S[facility]O PRN Reason: Protocol Last Admin: 10/30/16 17:24 Dose: 1 gm Folic Acid (Folic Acid -) 1 mg PO DAILY [facility] Last Admin: 10/30/16 11:48 Dose: 1 mg Ibuprofen (Motrin -) 400 mg PO Q6H PRN PRN Reason: PAIN Last Admin: 10/29/16 05:48 Dose: 400 mg Methylprednisolone Sodium Succinate (Solu-Medrol -) 40 mg IVPB Q8H-IV [facility] Last Admin: 10/30/16 17:23 Dose: 40 mg Multivitamins/Minerals/Vitamin C (Tab-A-Vit -) 1 tab PO DAILY [facility] Last Admin: 10/30/16 11:48 Dose: 1 tab Potassium Chloride (K-Dur -) 40 meq PO DAILY [facility] Last Admin: 10/30/16 11:48 Dose: 40 meq Thiamine HCl (Vitamin B1 -) 100 mg PO BID [facility] Last Admin: 10/30/16 11:48 Dose: 100 mg - Objective Vital Signs: Vital Signs Temperature 98.9 F 10/30/16 14:08 Pulse Rate 96 H 10/30/16 14:08 Respiratory Rate 22 10/30/16 14:08 Blood Pressure 119/74 10/30/16 14:08 O2 Sat by Pulse Oximetry (%) 92 L 10/30/16 10:00 Constitutional: Yes: No Distress HENT: Yes: Atraumatic Neck: Yes: Supple Cardiovascular: Yes: Regular Rate and Rhythm Respiratory: Yes: CTA Bilaterally Gastrointestinal: Yes: Normal Bowel Sounds Extremities: Yes: WNL Neurological: Yes: Alert, Oriented Labs: CBC, BMP 10/29/16 08:00 10/28/16 09:45 INR, PTT INR 1.49 (0.82-1.09) H 10/29/16 08:05 Problem List - Problems (1) ETOH abuse Assessment/Plan: librium protocol...ON HOLD DUE TO DROWSINESS Code(s): F10.10 - ALCOHOL ABUSE, UNCOMPLICATED (2) Hypokalemia Assessment/Plan: RESOLVED Code(s): E87.6 - HYPOKALEMIA (3) Hyponatremia Assessment/Plan: RESOLVING Code(s): E87.1 - HYPO-OSMOLALITY AND HYPONATREMIA (4) Alcohol dependence with uncomplicated withdrawal Assessment/Plan: prn ativan detox consult Code(s): F10.230 - ALCOHOL DEPENDENCE WITH WITHDRAWAL, UNCOMPLICATED (5) Alcoholic liver disease Code(s): K70.9 - ALCOHOLIC LIVER DISEASE, UNSPECIFIED (6) DM Diabetes mellitus type 2 Code(s): E11.9 - TYPE 2 DIABETES MELLITUS WITHOUT COMPLICATIONS (7) HTN (hypertension) Assessment/Plan: bp stable now Code(s): I10 - ESSENTIAL (PRIMARY) HYPERTENSION (8) Left upper lobe pneumonia Assessment/Plan: on iv abx p[er id cxr done has consolidation on right lung base Code(s): J18.1 - LOBAR PNEUMONIA, UNSPECIFIED ORGANISM
[2016-10-31] MEDS: CEFEPIME 1 GM/100 ML BAG PRE-DOCKED IVPB SCH ×3 (00:36→15:36)
[2016-10-31] MEDS: methylPREDNISolone NA SUCC 40 MG/1 ML VIAL IVPB SCH ×3 (02:02→17:10)
[2016-10-31] MEDS: ALBUTEROL SO4 2.5/IPRATROPIUM 0.5 INH SOL 3 ML VIAL.NEB. NEB SCH ×4 (06:50→23:08)
[2016-10-31] MEDS: FOLIC ACID 1 MG TABLET (FP) PO SCH (09:43)
[2016-10-31] MEDS: THIAMINE HCL 100 MG TABLET (FP) PO SCH ×2 (09:44→22:09)
[2016-10-31] MEDS: POTASSIUM CHLORIDE TABS 20 MEQ TABLET.ER (FP) PO SCH (09:45)
[2016-10-31] MEDS: MULTIVITAMINS (DAILY MVI) TABLET (FP) PO SCH (09:45)
[2016-10-31] MEDS ORDERED: INSULIN SLIDING SCALE (NOVOLOG) 1 VIAL SQ SCH (10:00)
[2016-10-31] MEDS ORDERED: INSULIN (NOVOLOG) ASPART 100 UNITS/ML 10ML VIAL SQ ONE (10:00)
[2016-10-31] MEDS: AZITHROMYCIN IVPB 500 MG/250 ML D5W PRE-DOCKED IVPB SCH (11:13)
--- NOTE | 2016-10-31 11:15 | PN ---
Progress Note, Physician History of Present Illness: PULMONARY ALERT,FEELING BETTER, LESS CONGESTED,LESS COUGH - Current Medication List Current Medications: Active Medications Albuterol Sulfate (Ventolin 0.083% Nebulizer Soln -) 1 amp NEB Q4H PRN PRN Reason: SHORT OF BREATH/WHEEZING Last Admin: 10/28/16 08:51 Dose: 1 amp Albuterol/Ipratropium (Duoneb -) 1 amp NEB QIDR [facility] Last Admin: 10/31/16 11:12 Dose: 1 amp Azithromycin (Zithromax 500mg Ivpb (Pre-Docked)) 500 mg IVPB DAILY [facility] Last Admin: 10/30/16 11:48 Dose: 500 mg Cefepime HCl (Maxipime 1gm Ivpb Pre-Docked) 1 gm IVPB Q8H [facility] PRN Reason: Protocol Last Admin: 10/31/16 08:54 Dose: 1 gm Folic Acid (Folic Acid -) 1 mg PO DAILY [facility] Last Admin: 10/31/16 09:43 Dose: 1 mg Ibuprofen (Motrin -) 400 mg PO Q6H PRN PRN Reason: PAIN Last Admin: 10/29/16 05:48 Dose: 400 mg Insulin Aspart (Novolog Vial Sliding Scale -) 1 vial SQ BIDAC SONIDO PRN Reason: Protocol Methylprednisolone Sodium Succinate (Solu-Medrol -) 40 mg IVPB Q8H-IV [facility] Last Admin: 10/31/16 09:37 Dose: 40 mg Multivitamins/Minerals/Vitamin C (Tab-A-Vit -) 1 tab PO DAILY [facility] Last Admin: 10/31/16 09:45 Dose: 1 tab Potassium Chloride (K-Dur -) 40 meq PO DAILY [facility] Last Admin: 10/31/16 09:45 Dose: 40 meq Thiamine HCl (Vitamin B1 -) 100 mg PO BID [facility] Last Admin: 10/31/16 09:44 Dose: 100 mg - Objective Vital Signs: Vital Signs Temperature 97.9 F 10/31/16 06:00 Pulse Rate 86 10/31/16 11:11 Respiratory Rate 20 10/31/16 06:00 Blood Pressure 117/71 10/31/16 06:00 O2 Sat by Pulse Oximetry (%) 91 L 10/31/16 11:11 Constitutional: Yes: Well Nourished, Calm Eyes: Yes: WNL HENT: Yes: WNL Neck: Yes: WNL Cardiovascular: Yes: Regular Rate and Rhythm, S1, S2 Respiratory: Yes: Rales (BILATERAL CRACKLE L>R) Extremities: Yes: WNL Edema: No Labs: CBC, BMP Problem List - Problems (1) ETOH abuse Code(s): F10.10 - ALCOHOL ABUSE, UNCOMPLICATED (2) Head trauma Code(s): S09.90XA - UNSPECIFIED INJURY OF HEAD, INITIAL ENCOUNTER (3) Hypokalemia Code(s): E87.6 - HYPOKALEMIA (4) Hyponatremia Code(s): E87.1 - HYPO-OSMOLALITY AND HYPONATREMIA (5) Left upper lobe pneumonia Code(s): J18.1 - LOBAR PNEUMONIA, UNSPECIFIED ORGANISM (6) Sepsis associated hypotension Code(s): A41.9 - SEPSIS, UNSPECIFIED ORGANISM (7) Alcohol dependence with uncomplicated withdrawal Code(s): F10.230 - ALCOHOL DEPENDENCE WITH WITHDRAWAL, UNCOMPLICATED (8) Hand abrasion Code(s): S60.519A - ABRASION OF UNSPECIFIED HAND, INITIAL ENCOUNTER Qualifiers : Laterality: right (9) Alcoholic liver disease Code(s): K70.9 - ALCOHOLIC LIVER DISEASE, UNSPECIFIED (10) DM Diabetes mellitus type 2 Code(s): E11.9 - TYPE 2 DIABETES MELLITUS WITHOUT COMPLICATIONS (11) Acute hypoxemic respiratory failure Code(s): J96.01 - ACUTE RESPIRATORY FAILURE WITH HYPOXIA Assessment/Plan IMP ACUTE HYPOXEMIC RESPIRATORY FAILURE SEPSIS PNEUMONIA CAP,?ASPIRATION HYPONATREMIA ETOH ELEVATED LFTS S/P FALL THROMBOCYTOPENIA PLAN ANTIBIOTICS PER ID IVF INHALED BRONCHODILATORS STEROIDS MONITORS LYTES/NA,LFTS DR OSMAN Problem List - Problems (1) ETOH abuse Code(s): F10.10 - ALCOHOL ABUSE, UNCOMPLICATED (2) Head trauma Code(s): S09.90XA - UNSPECIFIED INJURY OF HEAD, INITIAL ENCOUNTER (3) Hypokalemia Code(s): E87.6 - HYPOKALEMIA (4) Hyponatremia Code(s): E87.1 - HYPO-OSMOLALITY AND HYPONATREMIA (5) Left upper lobe pneumonia Code(s): J18.1 - LOBAR PNEUMONIA, UNSPECIFIED ORGANISM (6) Sepsis associated hypotension Code(s): A41.9 - SEPSIS, UNSPECIFIED ORGANISM (7) Alcohol dependence with uncomplicated withdrawal Code(s): F10.230 - ALCOHOL DEPENDENCE WITH WITHDRAWAL, UNCOMPLICATED (8) Hand abrasion Code(s): S60.519A - ABRASION OF UNSPECIFIED HAND, INITIAL ENCOUNTER Qualifiers : Laterality: right (9) Alcoholic liver disease Code(s): K70.9 - ALCOHOLIC LIVER DISEASE, UNSPECIFIED (10) DM Diabetes mellitus type 2 Code(s): E11.9 - TYPE 2 DIABETES MELLITUS WITHOUT COMPLICATIONS (11) Acute hypoxemic respiratory failure Code(s): J96.01 - ACUTE RESPIRATORY FAILURE WITH HYPOXIA
[2016-10-31 12:12] LABS: BASOPHIL 0.3 % (0-2.0); MCH 30.6 pg (25.7-33.7); MCHC 33.5 g/dl (32.0-35.9); MEAN CELL VOLUME 91.3 fl (80-96); MEAN PLT VOLUME 9.6 fl (7.5-11.1); NEUTROPHILS 84.9 % (42.8-82.8); PLATELET COUNT 127 K/MM3 (134-434); RDW 16.7 % (11.9-15.9); WHITE BLOOD COUNT 4.9 K/mm3 (4.0-10.0)
[2016-10-31 12:33] LABS: ANION GAP 10 (8-16); CO2 24 mmol/L (21-32); CREATININE 0.7 mg/dL (0.7-1.3)
[2016-10-31 12:40] LABS: GLUCOSE,RANDOM 402 mg/dL (74-106)
--- NOTE | 2016-10-31 13:23 | PN ---
Progress Note, Physician History of Present Illness: looks much better sitting c/o of cough otherwise doing well - Current Medication List Current Medications: Active Medications Albuterol Sulfate (Ventolin 0.083% Nebulizer Soln -) 1 amp NEB Q4H PRN PRN Reason: SHORT OF BREATH/WHEEZING Last Admin: 10/28/16 08:51 Dose: 1 amp Albuterol/Ipratropium (Duoneb -) 1 amp NEB QIDR [facility] Last Admin: 10/31/16 11:12 Dose: 1 amp Azithromycin (Zithromax 500mg Ivpb (Pre-Docked)) 500 mg IVPB DAILY [facility] Last Admin: 10/31/16 11:13 Dose: 500 mg Cefepime HCl (Maxipime 1gm Ivpb Pre-Docked) 1 gm IVPB Q8H [facility] PRN Reason: Protocol Last Admin: 10/31/16 08:54 Dose: 1 gm Folic Acid (Folic Acid -) 1 mg PO DAILY [facility] Last Admin: 10/31/16 09:43 Dose: 1 mg Ibuprofen (Motrin -) 400 mg PO Q6H PRN PRN Reason: PAIN Last Admin: 10/29/16 05:48 Dose: 400 mg Insulin Aspart (Novolog Vial Sliding Scale -) 1 vial SQ BIDAC [facility] PRN Reason: Protocol Methylprednisolone Sodium Succinate (Solu-Medrol -) 40 mg IVPB Q8H-IV [facility] Last Admin: 10/31/16 09:37 Dose: 40 mg Multivitamins/Minerals/Vitamin C (Tab-A-Vit -) 1 tab PO DAILY [facility] Last Admin: 10/31/16 09:45 Dose: 1 tab Potassium Chloride (K-Dur -) 40 meq PO DAILY [facility] Last Admin: 10/31/16 09:45 Dose: 40 meq Thiamine HCl (Vitamin B1 -) 100 mg PO BID [facility] Last Admin: 10/31/16 09:44 Dose: 100 mg - Objective Vital Signs: Vital Signs Temperature 97.9 F 10/31/16 06:00 Pulse Rate 86 10/31/16 11:11 Respiratory Rate 20 10/31/16 06:00 Blood Pressure 117/71 10/31/16 06:00 O2 Sat by Pulse Oximetry (%) 91 L 10/31/16 11:11 Constitutional: Yes: No Distress, Calm HENT: Yes: Atraumatic, Normocephalic Neck: Yes: Supple Cardiovascular: Yes: Regular Rate and Rhythm Respiratory: Yes: Regular, CTA Bilaterally Gastrointestinal: Yes: Normal Bowel Sounds, Soft Musculoskeletal: Yes: WNL Extremities: Yes: WNL Neurological: Yes: Alert, Oriented Psychiatric: Yes: Alert, Oriented Labs: CBC, BMP 10/31/16 11:45 10/31/16 11:45 INR, PTT INR 1.49 (0.82-1.09) H 10/29/16 08:05 Assessment/Plan Problem List - Problems (1) ETOH abuse Code(s): F10.10 - ALCOHOL ABUSE, UNCOMPLICATED (2) Hypokalemia Code(s): E87.6 - HYPOKALEMIA (3) Hyponatremia Code(s): E87.1 - HYPO-OSMOLALITY AND HYPONATREMIA (4) Alcohol dependence with uncomplicated withdrawal Code(s): F10.230 - ALCOHOL DEPENDENCE WITH WITHDRAWAL, UNCOMPLICATED 5 fever 6 asp pna looking at the xray i think patient has aspirated plan continue abx will consider stopping abx by wednesday rest as per primary
[2016-10-31] MEDS: INSULIN SLIDING SCALE (NOVOLOG) 1 VIAL SQ SCH (16:11)
--- NOTE | 2016-10-31 23:45 | PN ---
Progress Note, Physician - Current Medication List Current Medications: Active Medications Albuterol Sulfate (Ventolin 0.083% Nebulizer Soln -) 1 amp NEB Q4H PRN PRN Reason: SHORT OF BREATH/WHEEZING Last Admin: 10/28/16 08:51 Dose: 1 amp Albuterol/Ipratropium (Duoneb -) 1 amp NEB QIDR [facility] Last Admin: 10/31/16 23:08 Dose: 1 amp Azithromycin (Zithromax 500mg Ivpb (Pre-Docked)) 500 mg IVPB DAILY [facility] Last Admin: 10/31/16 11:13 Dose: 500 mg Cefepime HCl (Maxipime 1gm Ivpb Pre-Docked) 1 gm IVPB Q8H [facility] PRN Reason: Protocol Last Admin: 10/31/16 15:36 Dose: 1 gm Folic Acid (Folic Acid -) 1 mg PO DAILY [facility] Last Admin: 10/31/16 09:43 Dose: 1 mg Ibuprofen (Motrin -) 400 mg PO Q6H PRN PRN Reason: PAIN Last Admin: 10/29/16 05:48 Dose: 400 mg Insulin Aspart (Novolog Vial Sliding Scale -) 1 vial SQ BIDAC [facility] PRN Reason: Protocol Last Admin: 10/31/16 16:11 Dose: 8 units Methylprednisolone Sodium Succinate (Solu-Medrol -) 40 mg IVPB Q8H-IV [facility] Last Admin: 10/31/16 17:10 Dose: 40 mg Multivitamins/Minerals/Vitamin C (Tab-A-Vit -) 1 tab PO DAILY [facility] Last Admin: 10/31/16 09:45 Dose: 1 tab Potassium Chloride (K-Dur -) 40 meq PO DAILY [facility] Last Admin: 10/31/16 09:45 Dose: 40 meq Thiamine HCl (Vitamin B1 -) 100 mg PO BID [facility] Last Admin: 10/31/16 22:09 Dose: 100 mg - Objective Vital Signs: Vital Signs Temperature 98.7 F 10/31/16 18:00 Pulse Rate 82 10/31/16 18:00 Respiratory Rate 18 10/31/16 18:00 Blood Pressure 125/72 10/31/16 18:00 O2 Sat by Pulse Oximetry (%) 91 L 10/31/16 11:11 Labs: CBC, BMP 10/31/16 11:45 10/31/16 11:45 INR, PTT INR 1.49 (0.82-1.09) H 10/29/16 08:05
[2016-11-01] MEDS: CEFEPIME 1 GM/100 ML BAG PRE-DOCKED IVPB SCH ×3 (01:45→15:53)
[2016-11-01] MEDS: methylPREDNISolone NA SUCC 40 MG/1 ML VIAL IVPB SCH ×3 (01:45→22:53)
[2016-11-01] MEDS: INSULIN SLIDING SCALE (NOVOLOG) 1 VIAL SQ SCH ×2 (06:25→16:52)
[2016-11-01] MEDS: ALBUTEROL SO4 2.5/IPRATROPIUM 0.5 INH SOL 3 ML VIAL.NEB. NEB SCH ×4 (06:50→23:30)
[2016-11-01] MEDS: MULTIVITAMINS (DAILY MVI) TABLET (FP) PO SCH (09:15)
[2016-11-01] MEDS: THIAMINE HCL 100 MG TABLET (FP) PO SCH ×2 (09:15→22:53)
[2016-11-01] MEDS: POTASSIUM CHLORIDE TABS 20 MEQ TABLET.ER (FP) PO SCH (09:15)
[2016-11-01] MEDS: FOLIC ACID 1 MG TABLET (FP) PO SCH (09:15)
[2016-11-01] MEDS: AZITHROMYCIN IVPB 500 MG/250 ML D5W PRE-DOCKED IVPB SCH (10:19)
[2016-11-01] MEDS ORDERED: INSULIN (NOVOLOG) ASPART 100 UNITS/ML 10ML VIAL ONE (10:25)
--- NOTE | 2016-11-01 11:09 | PN ---
Progress Note, Physician History of Present Illness: PULMONARY ALERT,FEELING BETTER,+COUGH,LESS DYSPNEIC - Current Medication List Current Medications: Active Medications Albuterol Sulfate (Ventolin 0.083% Nebulizer Soln -) 1 amp NEB Q4H PRN PRN Reason: SHORT OF BREATH/WHEEZING Last Admin: 10/28/16 08:51 Dose: 1 amp Albuterol/Ipratropium (Duoneb -) 1 amp NEB QIDR [facility] Last Admin: 11/01/16 11:04 Dose: 1 amp Azithromycin (Zithromax 500mg Ivpb (Pre-Docked)) 500 mg IVPB DAILY [facility] Last Admin: 11/01/16 10:19 Dose: 500 mg Cefepime HCl (Maxipime 1gm Ivpb Pre-Docked) 1 gm IVPB Q8H [facility] PRN Reason: Protocol Last Admin: 11/01/16 08:21 Dose: 1 gm Folic Acid (Folic Acid -) 1 mg PO DAILY [facility] Last Admin: 11/01/16 09:15 Dose: 1 mg Ibuprofen (Motrin -) 400 mg PO Q6H PRN PRN Reason: PAIN Last Admin: 10/29/16 05:48 Dose: 400 mg Insulin Aspart (Novolog Vial Sliding Scale -) 1 vial SQ BIDAC [facility] PRN Reason: Protocol Last Admin: 11/01/16 06:25 Dose: 6 units Methylprednisolone Sodium Succinate (Solu-Medrol -) 40 mg IVPB Q8H-IV [facility] Last Admin: 11/01/16 09:15 Dose: 40 mg Multivitamins/Minerals/Vitamin C (Tab-A-Vit -) 1 tab PO DAILY [facility] Last Admin: 11/01/16 09:15 Dose: 1 tab Potassium Chloride (K-Dur -) 40 meq PO DAILY [facility] Last Admin: 11/01/16 09:15 Dose: 40 meq Thiamine HCl (Vitamin B1 -) 100 mg PO BID [facility] Last Admin: 11/01/16 09:15 Dose: 100 mg - Objective Vital Signs: Vital Signs Temperature 97.5 F L 11/01/16 09:49 Pulse Rate 80 11/01/16 10:46 Respiratory Rate 18 11/01/16 09:49 Blood Pressure 107/59 11/01/16 09:49 O2 Sat by Pulse Oximetry (%) 91 L 11/01/16 10:46 Constitutional: Yes: Well Nourished, Calm Eyes: Yes: WNL HENT: Yes: WNL Neck: Yes: WNL Cardiovascular: Yes: Regular Rate and Rhythm, S1, S2 Respiratory: Yes: Rales Gastrointestinal: Yes: Normal Bowel Sounds, Soft Extremities: Yes: WNL Edema: No Labs: CBC, BMP Problem List - Problems (1) ETOH abuse Code(s): F10.10 - ALCOHOL ABUSE, UNCOMPLICATED (2) Head trauma Code(s): S09.90XA - UNSPECIFIED INJURY OF HEAD, INITIAL ENCOUNTER (3) Hypokalemia Code(s): E87.6 - HYPOKALEMIA (4) Hyponatremia Code(s): E87.1 - HYPO-OSMOLALITY AND HYPONATREMIA (5) Left upper lobe pneumonia Code(s): J18.1 - LOBAR PNEUMONIA, UNSPECIFIED ORGANISM (6) Sepsis associated hypotension Code(s): A41.9 - SEPSIS, UNSPECIFIED ORGANISM (7) Alcohol dependence with uncomplicated withdrawal Code(s): F10.230 - ALCOHOL DEPENDENCE WITH WITHDRAWAL, UNCOMPLICATED (8) Hand abrasion Code(s): S60.519A - ABRASION OF UNSPECIFIED HAND, INITIAL ENCOUNTER Qualifiers : Laterality: right (9) Alcoholic liver disease Code(s): K70.9 - ALCOHOLIC LIVER DISEASE, UNSPECIFIED (10) DM Diabetes mellitus type 2 Code(s): E11.9 - TYPE 2 DIABETES MELLITUS WITHOUT COMPLICATIONS (11) Acute hypoxemic respiratory failure Code(s): J96.01 - ACUTE RESPIRATORY FAILURE WITH HYPOXIA Assessment/Plan IMP ACUTE HYPOXEMIC RESPIRATORY FAILURE IMPROVING SEPSIS PNEUMONIA CAP,?ASPIRATION HYPONATREMIA ETOH ELEVATED LFTS S/P FALL THROMBOCYTOPENIA PLAN ANTIBIOTICS PER ID IVF INHALED BRONCHODILATORS STEROID TAPER MONITORS LYTES/NA,LFTS F/U CHEST X-RAY ANTITUSSIVES DR OSMAN Problem List - Problems (1) ETOH abuse Code(s): F10.10 - ALCOHOL ABUSE, UNCOMPLICATED (2) Head trauma Code(s): S09.90XA - UNSPECIFIED INJURY OF HEAD, INITIAL ENCOUNTER (3) Hypokalemia Code(s): E87.6 - HYPOKALEMIA (4) Hyponatremia Code(s): E87.1 - HYPO-OSMOLALITY AND HYPONATREMIA (5) Left upper lobe pneumonia Code(s): J18.1 - LOBAR PNEUMONIA, UNSPECIFIED ORGANISM (6) Sepsis associated hypotension Code(s): A41.9 - SEPSIS, UNSPECIFIED ORGANISM (7) Alcohol dependence with uncomplicated withdrawal Code(s): F10.230 - ALCOHOL DEPENDENCE WITH WITHDRAWAL, UNCOMPLICATED (8) Hand abrasion Code(s): S60.519A - ABRASION OF UNSPECIFIED HAND, INITIAL ENCOUNTER Qualifiers : Laterality: right (9) Alcoholic liver disease Code(s): K70.9 - ALCOHOLIC LIVER DISEASE, UNSPECIFIED (10) DM Diabetes mellitus type 2 Code(s): E11.9 - TYPE 2 DIABETES MELLITUS WITHOUT COMPLICATIONS (11) Acute hypoxemic respiratory failure Code(s): J96.01 - ACUTE RESPIRATORY FAILURE WITH HYPOXIA
[2016-11-01] MEDS: guaiFENesin/CODEINE 10 ML UNIT-DOSE CUPS PO PRN (12:31)
--- NOTE | 2016-11-01 14:22 | PN ---
Progress Note, Physician History of Present Illness: continues to improve no new issues - Current Medication List Current Medications: Active Medications Albuterol Sulfate (Ventolin 0.083% Nebulizer Soln -) 1 amp NEB Q4H PRN PRN Reason: SHORT OF BREATH/WHEEZING Last Admin: 10/28/16 08:51 Dose: 1 amp Albuterol/Ipratropium (Duoneb -) 1 amp NEB QIDR [facility] Last Admin: 11/01/16 11:04 Dose: 1 amp Azithromycin (Zithromax 500mg Ivpb (Pre-Docked)) 500 mg IVPB DAILY [facility] Last Admin: 11/01/16 10:19 Dose: 500 mg Cefepime HCl (Maxipime 1gm Ivpb Pre-Docked) 1 gm IVPB Q8H [facility] PRN Reason: Protocol Last Admin: 11/01/16 08:21 Dose: 1 gm Folic Acid (Folic Acid -) 1 mg PO DAILY [facility] Last Admin: 11/01/16 09:15 Dose: 1 mg Guaifenesin/Codeine Phosphate (Robitussin Ac -) 10 ml PO Q8H PRN PRN Reason: COUGH Last Admin: 11/01/16 12:31 Dose: 10 ml Ibuprofen (Motrin -) 400 mg PO Q6H PRN PRN Reason: PAIN Last Admin: 10/29/16 05:48 Dose: 400 mg Insulin Aspart (Novolog Vial Sliding Scale -) 1 vial SQ BIDAC [facility] PRN Reason: Protocol Last Admin: 11/01/16 06:25 Dose: 6 units Methylprednisolone Sodium Succinate (Solu-Medrol -) 40 mg IVPB Q12H [facility] Multivitamins/Minerals/Vitamin C (Tab-A-Vit -) 1 tab PO DAILY [facility] Last Admin: 11/01/16 09:15 Dose: 1 tab Potassium Chloride (K-Dur -) 40 meq PO DAILY [facility] Last Admin: 11/01/16 09:15 Dose: 40 meq Thiamine HCl (Vitamin B1 -) 100 mg PO BID [facility] Last Admin: 11/01/16 09:15 Dose: 100 mg - Objective Vital Signs: Vital Signs Temperature 97.5 F L 11/01/16 09:49 Pulse Rate 80 11/01/16 10:46 Respiratory Rate 18 11/01/16 09:49 Blood Pressure 107/59 11/01/16 09:49 O2 Sat by Pulse Oximetry (%) 91 L 11/01/16 10:46 Constitutional: Yes: No Distress, Calm Cardiovascular: Yes: Regular Rate and Rhythm Respiratory: Yes: Regular, Rhonchi (left side), Other Gastrointestinal: Yes: Normal Bowel Sounds, Soft Musculoskeletal: Yes: WNL Extremities: Yes: WNL Neurological: Yes: Alert, Oriented Psychiatric: Yes: Alert Labs: CBC, BMP 10/31/16 11:45 10/31/16 11:45 INR, PTT INR 1.49 (0.82-1.09) H 10/29/16 08:05 Assessment/Plan Problem List - Problems (1) ETOH abuse Code(s): F10.10 - ALCOHOL ABUSE, UNCOMPLICATED (2) Hypokalemia Code(s): E87.6 - HYPOKALEMIA (3) Hyponatremia Code(s): E87.1 - HYPO-OSMOLALITY AND HYPONATREMIA (4) Alcohol dependence with uncomplicated withdrawal Code(s): F10.230 - ALCOHOL DEPENDENCE WITH WITHDRAWAL, UNCOMPLICATED 5 fever 6 asp pna looking at the xray i think patient has aspirated plan continue abx rest as per primary
--- NOTE | 2016-11-01 22:32 | PN ---
Progress Note, Physician - Current Medication List Current Medications: Active Medications Albuterol Sulfate (Ventolin 0.083% Nebulizer Soln -) 1 amp NEB Q4H PRN PRN Reason: SHORT OF BREATH/WHEEZING Last Admin: 10/28/16 08:51 Dose: 1 amp Albuterol/Ipratropium (Duoneb -) 1 amp NEB QIDR [facility] Last Admin: 11/01/16 17:56 Dose: 1 amp Azithromycin (Zithromax 500mg Ivpb (Pre-Docked)) 500 mg IVPB DAILY [facility] Last Admin: 11/01/16 10:19 Dose: 500 mg Cefepime HCl (Maxipime 1gm Ivpb Pre-Docked) 1 gm IVPB Q8H [facility] PRN Reason: Protocol Last Admin: 11/01/16 15:53 Dose: 1 gm Folic Acid (Folic Acid -) 1 mg PO DAILY [facility] Last Admin: 11/01/16 09:15 Dose: 1 mg Guaifenesin/Codeine Phosphate (Robitussin Ac -) 10 ml PO Q8H PRN PRN Reason: COUGH Last Admin: 11/01/16 12:31 Dose: 10 ml Ibuprofen (Motrin -) 400 mg PO Q6H PRN PRN Reason: PAIN Last Admin: 10/29/16 05:48 Dose: 400 mg Insulin Aspart (Novolog Vial Sliding Scale -) 1 vial SQ BIDAC [facility] PRN Reason: Protocol Last Admin: 11/01/16 16:52 Dose: 10 units Methylprednisolone Sodium Succinate (Solu-Medrol -) 40 mg IVPB Q12H [facility] Multivitamins/Minerals/Vitamin C (Tab-A-Vit -) 1 tab PO DAILY [facility] Last Admin: 11/01/16 09:15 Dose: 1 tab Potassium Chloride (K-Dur -) 40 meq PO DAILY [facility] Last Admin: 11/01/16 09:15 Dose: 40 meq Thiamine HCl (Vitamin B1 -) 100 mg PO BID [facility] Last Admin: 11/01/16 09:15 Dose: 100 mg - Objective Vital Signs: Vital Signs Temperature 98.2 F 11/01/16 18:00 Pulse Rate 78 11/01/16 18:00 Respiratory Rate 18 11/01/16 18:00 Blood Pressure 135/77 11/01/16 18:00 O2 Sat by Pulse Oximetry (%) 91 L 11/01/16 10:46 Labs: CBC, BMP 10/31/16 11:45 10/31/16 11:45 INR, PTT INR 1.49 (0.82-1.09) H 10/29/16 08:05
[2016-11-02] MEDS: CEFEPIME 1 GM/100 ML BAG PRE-DOCKED IVPB SCH ×3 (01:30→17:47)
[2016-11-02] MEDS: ALBUTEROL SO4 2.5/IPRATROPIUM 0.5 INH SOL 3 ML VIAL.NEB. NEB SCH ×3 (06:45→17:23)
[2016-11-02] MEDS: INSULIN SLIDING SCALE (NOVOLOG) 1 VIAL SQ SCH ×2 (06:57→17:47)
[2016-11-02] MEDS: MULTIVITAMINS (DAILY MVI) TABLET (FP) PO SCH (10:08)
[2016-11-02] MEDS: POTASSIUM CHLORIDE TABS 20 MEQ TABLET.ER (FP) PO SCH (10:08)
[2016-11-02] MEDS: FOLIC ACID 1 MG TABLET (FP) PO SCH (10:08)
[2016-11-02] MEDS: THIAMINE HCL 100 MG TABLET (FP) PO SCH ×2 (10:08→22:36)
[2016-11-02] MEDS: methylPREDNISolone NA SUCC 40 MG/1 ML VIAL IVPB SCH ×2 (10:15→11:19)
[2016-11-02] MEDS: AZITHROMYCIN IVPB 500 MG/250 ML D5W PRE-DOCKED IVPB SCH (12:07)
--- NOTE | 2016-11-02 14:01 | PN ---
Progress Note, Physician History of Present Illness: pulmopnary alert,feeling better,less cough,sob improved - Current Medication List Current Medications: Active Medications Albuterol/Ipratropium (Duoneb -) 1 amp NEB QIDR [facility] Last Admin: 11/02/16 11:48 Dose: 1 amp Azithromycin (Zithromax 500mg Ivpb (Pre-Docked)) 500 mg IVPB DAILY [facility] Last Admin: 11/02/16 12:07 Dose: 500 mg Cefepime HCl (Maxipime 1gm Ivpb Pre-Docked) 1 gm IVPB Q8H [facility] PRN Reason: Protocol Last Admin: 11/02/16 09:03 Dose: 1 gm Folic Acid (Folic Acid -) 1 mg PO DAILY [facility] Last Admin: 11/02/16 10:08 Dose: 1 mg Guaifenesin/Codeine Phosphate (Robitussin Ac -) 10 ml PO Q8H PRN PRN Reason: COUGH Last Admin: 11/01/16 12:31 Dose: 10 ml Ibuprofen (Motrin -) 400 mg PO Q6H PRN PRN Reason: PAIN Last Admin: 10/29/16 05:48 Dose: 400 mg Insulin Aspart (Novolog Vial Sliding Scale -) 1 vial SQ BIDAC [facility] PRN Reason: Protocol Last Admin: 11/02/16 06:57 Dose: 6 units Methylprednisolone Sodium Succinate (Solu-Medrol -) 40 mg IVPB Q12H [facility] Last Admin: 11/02/16 11:19 Dose: 40 mg Multivitamins/Minerals/Vitamin C (Tab-A-Vit -) 1 tab PO DAILY [facility] Last Admin: 11/02/16 10:08 Dose: 1 tab Potassium Chloride (K-Dur -) 40 meq PO DAILY [facility] Last Admin: 11/02/16 10:08 Dose: 40 meq Thiamine HCl (Vitamin B1 -) 100 mg PO BID [facility] Last Admin: 11/02/16 10:08 Dose: 100 mg - Objective Vital Signs: Vital Signs Temperature 97.8 F 11/02/16 12:07 Pulse Rate 73 11/02/16 11:49 Respiratory Rate 20 11/02/16 10:06 Blood Pressure 100/50 11/02/16 10:06 O2 Sat by Pulse Oximetry (%) 95 11/02/16 13:10 Constitutional: Yes: Well Nourished, Calm Eyes: Yes: WNL HENT: Yes: WNL Neck: Yes: WNL Cardiovascular: Yes: Regular Rate and Rhythm, S1, S2 Respiratory: Yes: Rales (crackles on left) Gastrointestinal: Yes: Normal Bowel Sounds, Soft Extremities: Yes: WNL Edema: No Labs: CBC, BMP - ....Imaging Chest X-ray: Report Reviewed, Image Reviewed (improving left lung consolidation) Problem List - Problems (1) ETOH abuse Code(s): F10.10 - ALCOHOL ABUSE, UNCOMPLICATED (2) Head trauma Code(s): S09.90XA - UNSPECIFIED INJURY OF HEAD, INITIAL ENCOUNTER (3) Hypokalemia Code(s): E87.6 - HYPOKALEMIA (4) Hyponatremia Code(s): E87.1 - HYPO-OSMOLALITY AND HYPONATREMIA (5) Left upper lobe pneumonia Code(s): J18.1 - LOBAR PNEUMONIA, UNSPECIFIED ORGANISM (6) Sepsis associated hypotension Code(s): A41.9 - SEPSIS, UNSPECIFIED ORGANISM (7) Alcohol dependence with uncomplicated withdrawal Code(s): F10.230 - ALCOHOL DEPENDENCE WITH WITHDRAWAL, UNCOMPLICATED (8) Hand abrasion Code(s): S60.519A - ABRASION OF UNSPECIFIED HAND, INITIAL ENCOUNTER Qualifiers : Laterality: right (9) Alcoholic liver disease Code(s): K70.9 - ALCOHOLIC LIVER DISEASE, UNSPECIFIED (10) DM Diabetes mellitus type 2 Code(s): E11.9 - TYPE 2 DIABETES MELLITUS WITHOUT COMPLICATIONS (11) Acute hypoxemic respiratory failure Code(s): J96.01 - ACUTE RESPIRATORY FAILURE WITH HYPOXIA Assessment/Plan IMP ACUTE HYPOXEMIC RESPIRATORY FAILURE IMPROVING SEPSIS PNEUMONIA CAP,?ASPIRATION improving HYPONATREMIA ETOH ELEVATED LFTS S/P FALL THROMBOCYTOPENIA PLAN ANTIBIOTICS PER ID INHALED BRONCHODILATORS STEROID TAPER MONITORS LYTES/NA,LFTS ANTITUSSIVES DR OSMAN Problem List - Problems (1) ETOH abuse Code(s): F10.10 - ALCOHOL ABUSE, UNCOMPLICATED (2) Head trauma Code(s): S09.90XA - UNSPECIFIED INJURY OF HEAD, INITIAL ENCOUNTER (3) Hypokalemia Code(s): E87.6 - HYPOKALEMIA (4) Hyponatremia Code(s): E87.1 - HYPO-OSMOLALITY AND HYPONATREMIA (5) Left upper lobe pneumonia Code(s): J18.1 - LOBAR PNEUMONIA, UNSPECIFIED ORGANISM (6) Sepsis associated hypotension Code(s): A41.9 - SEPSIS, UNSPECIFIED ORGANISM (7) Alcohol dependence with uncomplicated withdrawal Code(s): F10.230 - ALCOHOL DEPENDENCE WITH WITHDRAWAL, UNCOMPLICATED (8) Hand abrasion Code(s): S60.519A - ABRASION OF UNSPECIFIED HAND, INITIAL ENCOUNTER Qualifiers : Laterality: right (9) Alcoholic liver disease Code(s): K70.9 - ALCOHOLIC LIVER DISEASE, UNSPECIFIED (10) DM Diabetes mellitus type 2 Code(s): E11.9 - TYPE 2 DIABETES MELLITUS WITHOUT COMPLICATIONS (11) Acute hypoxemic respiratory failure Code(s): J96.01 - ACUTE RESPIRATORY FAILURE WITH HYPOXIA
--- NOTE | 2016-11-02 14:12 | PN ---
Progress Note, Physician History of Present Illness: patient looking much better breathing much better xray seen and results noted - Current Medication List Current Medications: Active Medications Albuterol/Ipratropium (Duoneb -) 1 amp NEB QIDR [facility] Last Admin: 11/02/16 11:48 Dose: 1 amp Azithromycin (Zithromax 500mg Ivpb (Pre-Docked)) 500 mg IVPB DAILY [facility] Last Admin: 11/02/16 12:07 Dose: 500 mg Cefepime HCl (Maxipime 1gm Ivpb Pre-Docked) 1 gm IVPB Q8H [facility] PRN Reason: Protocol Last Admin: 11/02/16 09:03 Dose: 1 gm Folic Acid (Folic Acid -) 1 mg PO DAILY [facility] Last Admin: 11/02/16 10:08 Dose: 1 mg Guaifenesin/Codeine Phosphate (Robitussin Ac -) 10 ml PO Q8H PRN PRN Reason: COUGH Last Admin: 11/01/16 12:31 Dose: 10 ml Ibuprofen (Motrin -) 400 mg PO Q6H PRN PRN Reason: PAIN Last Admin: 10/29/16 05:48 Dose: 400 mg Insulin Aspart (Novolog Vial Sliding Scale -) 1 vial SQ BIDAC [facility] PRN Reason: Protocol Last Admin: 11/02/16 06:57 Dose: 6 units Methylprednisolone Sodium Succinate (Solu-Medrol -) 40 mg IVPB DAILY [facility] Multivitamins/Minerals/Vitamin C (Tab-A-Vit -) 1 tab PO DAILY [facility] Last Admin: 11/02/16 10:08 Dose: 1 tab Potassium Chloride (K-Dur -) 40 meq PO DAILY [facility] Last Admin: 11/02/16 10:08 Dose: 40 meq Thiamine HCl (Vitamin B1 -) 100 mg PO BID [facility] Last Admin: 11/02/16 10:08 Dose: 100 mg - Objective Vital Signs: Vital Signs Temperature 97.8 F 11/02/16 12:07 Pulse Rate 73 11/02/16 11:49 Respiratory Rate 20 11/02/16 10:06 Blood Pressure 100/50 11/02/16 10:06 O2 Sat by Pulse Oximetry (%) 95 11/02/16 13:10 Constitutional: Yes: No Distress, Calm Cardiovascular: Yes: Regular Rate and Rhythm Respiratory: Yes: Regular, Rhonchi Gastrointestinal: Yes: Normal Bowel Sounds, Soft Musculoskeletal: Yes: WNL Extremities: Yes: WNL Neurological: Yes: Alert, Oriented Psychiatric: Yes: Alert, Oriented Labs: CBC, BMP 10/31/16 11:45 10/31/16 11:45 INR, PTT INR 1.49 (0.82-1.09) H 10/29/16 08:05 Assessment/Plan Problem List Problem List - Problems (1) ETOH abuse Code(s): F10.10 - ALCOHOL ABUSE, UNCOMPLICATED (2) Head trauma Code(s): S09.90XA - UNSPECIFIED INJURY OF HEAD, INITIAL ENCOUNTER (3) Hypokalemia Code(s): E87.6 - HYPOKALEMIA (4) Hyponatremia Code(s): E87.1 - HYPO-OSMOLALITY AND HYPONATREMIA (5) Left upper lobe pneumonia Code(s): J18.1 - LOBAR PNEUMONIA, UNSPECIFIED ORGANISM (6) Sepsis associated hypotension Code(s): A41.9 - SEPSIS, UNSPECIFIED ORGANISM (7) Alcohol dependence with uncomplicated withdrawal Code(s): F10.230 - ALCOHOL DEPENDENCE WITH WITHDRAWAL, UNCOMPLICATED (8) Hand abrasion Code(s): S60.519A - ABRASION OF UNSPECIFIED HAND, INITIAL ENCOUNTER Qualifiers : Laterality: right (9) Alcoholic liver disease Code(s): K70.9 - ALCOHOLIC LIVER DISEASE, UNSPECIFIED (10) DM Diabetes mellitus type 2 Code(s): E11.9 - TYPE 2 DIABETES MELLITUS WITHOUT COMPLICATIONS (11) Acute hypoxemic respiratory failure Code(s): J96.01 - ACUTE RESPIRATORY FAILURE WITH HYPOXIA plan continue abx can switch to oral abx tomorrow can give him augmentin 875 mg twice a day for another 5 days more incentive nati
--- NOTE | 2016-11-02 19:37 | PN ---
Progress Note, Physician History of Present Illness: doing well - Current Medication List Current Medications: Active Medications Azithromycin (Zithromax 500mg Ivpb (Pre-Docked)) 500 mg IVPB DAILY [facility] Last Admin: 11/02/16 12:07 Dose: 500 mg Cefepime HCl (Maxipime 1gm Ivpb Pre-Docked) 1 gm IVPB Q8H [facility] PRN Reason: Protocol Last Admin: 11/02/16 17:47 Dose: 1 gm Folic Acid (Folic Acid -) 1 mg PO DAILY [facility] Last Admin: 11/02/16 10:08 Dose: 1 mg Guaifenesin/Codeine Phosphate (Robitussin Ac -) 10 ml PO Q8H PRN PRN Reason: COUGH Last Admin: 11/01/16 12:31 Dose: 10 ml Ibuprofen (Motrin -) 400 mg PO Q6H PRN PRN Reason: PAIN Last Admin: 10/29/16 05:48 Dose: 400 mg Insulin Aspart (Novolog Vial Sliding Scale -) 1 vial SQ BIDAC [facility] PRN Reason: Protocol Last Admin: 11/02/16 17:47 Dose: 10 units Multivitamins/Minerals/Vitamin C (Tab-A-Vit -) 1 tab PO DAILY [facility] Last Admin: 11/02/16 10:08 Dose: 1 tab Potassium Chloride (K-Dur -) 40 meq PO DAILY [facility] Last Admin: 11/02/16 10:08 Dose: 40 meq Prednisone (Deltasone -) 40 mg PO DAILY [facility] Thiamine HCl (Vitamin B1 -) 100 mg PO BID [facility] Last Admin: 11/02/16 10:08 Dose: 100 mg - Objective Vital Signs: Vital Signs Temperature 98.3 F 11/02/16 14:45 Pulse Rate 83 11/02/16 14:45 Respiratory Rate 18 11/02/16 14:45 Blood Pressure 106/65 11/02/16 14:45 O2 Sat by Pulse Oximetry (%) 95 11/02/16 13:10 Constitutional: Yes: No Distress HENT: Yes: Atraumatic Neck: Yes: Supple Cardiovascular: Yes: Regular Rate and Rhythm Respiratory: Yes: Rhonchi Gastrointestinal: Yes: Normal Bowel Sounds Extremities: Yes: WNL Neurological: Yes: Alert, Oriented Labs: CBC, BMP 10/31/16 11:45 10/31/16 11:45 INR, PTT INR 1.49 (0.82-1.09) H 10/29/16 08:05 Problem List - Problems (1) ETOH abuse Assessment/Plan: stable ON FOLIC ACID AND THIAMINE Code(s): F10.10 - ALCOHOL ABUSE, UNCOMPLICATED (2) Hypokalemia Assessment/Plan: RESOLVED Code(s): E87.6 - HYPOKALEMIA (3) Hyponatremia Assessment/Plan: RESOLVING Code(s): E87.1 - HYPO-OSMOLALITY AND HYPONATREMIA (4) Alcohol dependence with uncomplicated withdrawal Assessment/Plan: STABLE Code(s): F10.230 - ALCOHOL DEPENDENCE WITH WITHDRAWAL, UNCOMPLICATED (5) Alcoholic liver disease Code(s): K70.9 - ALCOHOLIC LIVER DISEASE, UNSPECIFIED (6) DM Diabetes mellitus type 2 Assessment/Plan: ON INSULIN WILL START METFORMIN Code(s): E11.9 - TYPE 2 DIABETES MELLITUS WITHOUT COMPLICATIONS (7) HTN (hypertension) Assessment/Plan: bp MEDS STILL ON HOLD Code(s): I10 - ESSENTIAL (PRIMARY) HYPERTENSION (8) Left upper lobe pneumonia Assessment/Plan: SWITCH TO PO ABX AND PREDNISONE FROM TOMORROW Code(s): J18.1 - LOBAR PNEUMONIA, UNSPECIFIED ORGANISM Assessment/Plan DC IN AM IF STABLE pt wants to go to [facility] for rehab
[2016-11-02] MEDS: guaiFENesin/CODEINE 10 ML UNIT-DOSE CUPS PO PRN (22:42)
[2016-11-03] MEDS: CEFEPIME 1 GM/100 ML BAG PRE-DOCKED IVPB SCH ×4 (02:40→22:39)
[2016-11-03] MEDS: INSULIN SLIDING SCALE (NOVOLOG) 1 VIAL SQ SCH ×2 (06:35→16:58)
[2016-11-03] MEDS: POTASSIUM CHLORIDE TABS 20 MEQ TABLET.ER (FP) PO SCH (09:16)
[2016-11-03] MEDS: predniSONE 20 MG TABLET (UD) PO SCH (09:18)
[2016-11-03] MEDS: THIAMINE HCL 100 MG TABLET (FP) PO SCH ×2 (09:18→22:33)
[2016-11-03] MEDS: AZITHROMYCIN IVPB 500 MG/250 ML D5W PRE-DOCKED IVPB SCH (09:18)
[2016-11-03] MEDS: MULTIVITAMINS (DAILY MVI) TABLET (FP) PO SCH (09:18)
[2016-11-03] MEDS: FOLIC ACID 1 MG TABLET (FP) PO SCH (09:19)
[2016-11-03] MEDS ORDERED: methylPREDNISolone NA SUCC 40 MG/1 ML VIAL IVPB SCH (10:00)
--- NOTE | 2016-11-03 12:16 | PN ---
Progress Note, Physician History of Present Illness: PULMONARY ALERT,NAD,+COUGH,-SOB - Current Medication List Current Medications: Active Medications Azithromycin (Zithromax 500mg Ivpb (Pre-Docked)) 500 mg IVPB DAILY [facility] Last Admin: 11/03/16 09:18 Dose: 500 mg Cefepime HCl (Maxipime 1gm Ivpb Pre-Docked) 1 gm IVPB Q8H [facility] PRN Reason: Protocol Last Admin: 11/03/16 08:31 Dose: 1 gm Folic Acid (Folic Acid -) 1 mg PO DAILY [facility] Last Admin: 11/03/16 09:19 Dose: 1 mg Guaifenesin/Codeine Phosphate (Robitussin Ac -) 10 ml PO Q8H PRN PRN Reason: COUGH Last Admin: 11/02/16 22:42 Dose: 10 ml Ibuprofen (Motrin -) 400 mg PO Q6H PRN PRN Reason: PAIN Last Admin: 10/29/16 05:48 Dose: 400 mg Insulin Aspart (Novolog Vial Sliding Scale -) 1 vial SQ BIDAC [facility] PRN Reason: Protocol Last Admin: 11/03/16 06:35 Dose: 4 units Multivitamins/Minerals/Vitamin C (Tab-A-Vit -) 1 tab PO DAILY [facility] Last Admin: 11/03/16 09:18 Dose: 1 tab Potassium Chloride (K-Dur -) 40 meq PO DAILY [facility] Last Admin: 11/03/16 09:16 Dose: 40 meq Prednisone (Deltasone -) 40 mg PO DAILY [facility] Last Admin: 11/03/16 09:18 Dose: 40 mg Thiamine HCl (Vitamin B1 -) 100 mg PO BID [facility] Last Admin: 11/03/16 09:18 Dose: 100 mg - Objective Vital Signs: Vital Signs Temperature 99.7 F H 11/03/16 11:39 Pulse Rate 85 11/03/16 11:39 Respiratory Rate 18 11/03/16 11:39 Blood Pressure 100/62 11/03/16 11:39 O2 Sat by Pulse Oximetry (%) 93 L 11/03/16 10:51 Constitutional: Yes: Well Nourished, Calm Eyes: Yes: WNL HENT: Yes: WNL Neck: Yes: WNL Cardiovascular: Yes: Regular Rate and Rhythm, S1, S2 Respiratory: Yes: Rales (FEW CRACKLES ON LEFT) Gastrointestinal: Yes: Normal Bowel Sounds, Soft Extremities: Yes: WNL Edema: No Labs: CBC, BMP 10/31/16 11:45 10/31/16 11:45 INR, PTT INR 1.49 (0.82-1.09) H 10/29/16 08:05 Problem List - Problems (1) ETOH abuse Code(s): F10.10 - ALCOHOL ABUSE, UNCOMPLICATED (2) Head trauma Code(s): S09.90XA - UNSPECIFIED INJURY OF HEAD, INITIAL ENCOUNTER (3) Hypokalemia Code(s): E87.6 - HYPOKALEMIA (4) Hyponatremia Code(s): E87.1 - HYPO-OSMOLALITY AND HYPONATREMIA (5) Left upper lobe pneumonia Code(s): J18.1 - LOBAR PNEUMONIA, UNSPECIFIED ORGANISM (6) Sepsis associated hypotension Code(s): A41.9 - SEPSIS, UNSPECIFIED ORGANISM (7) Alcohol dependence with uncomplicated withdrawal Code(s): F10.230 - ALCOHOL DEPENDENCE WITH WITHDRAWAL, UNCOMPLICATED (8) Hand abrasion Code(s): S60.519A - ABRASION OF UNSPECIFIED HAND, INITIAL ENCOUNTER Qualifiers : Laterality: right (9) Alcoholic liver disease Code(s): K70.9 - ALCOHOLIC LIVER DISEASE, UNSPECIFIED (10) DM Diabetes mellitus type 2 Code(s): E11.9 - TYPE 2 DIABETES MELLITUS WITHOUT COMPLICATIONS (11) Acute hypoxemic respiratory failure Code(s): J96.01 - ACUTE RESPIRATORY FAILURE WITH HYPOXIA Assessment/Plan IMP ACUTE HYPOXEMIC RESPIRATORY FAILURE IMPROVING SEPSIS PNEUMONIA CAP,?ASPIRATION improving HYPONATREMIA ETOH ELEVATED LFTS S/P FALL THROMBOCYTOPENIA PLAN CONSIDER PO ANTIBIOTICS INHALED BRONCHODILATORS STEROID TAPER MONITORS LYTES/NA,LFTS ANTITUSSIVES DR OSMAN Problem List - Problems (1) ETOH abuse Code(s): F10.10 - ALCOHOL ABUSE, UNCOMPLICATED (2) Head trauma Code(s): S09.90XA - UNSPECIFIED INJURY OF HEAD, INITIAL ENCOUNTER (3) Hypokalemia Code(s): E87.6 - HYPOKALEMIA (4) Hyponatremia Code(s): E87.1 - HYPO-OSMOLALITY AND HYPONATREMIA (5) Left upper lobe pneumonia Code(s): J18.1 - LOBAR PNEUMONIA, UNSPECIFIED ORGANISM (6) Sepsis associated hypotension Code(s): A41.9 - SEPSIS, UNSPECIFIED ORGANISM (7) Alcohol dependence with uncomplicated withdrawal Code(s): F10.230 - ALCOHOL DEPENDENCE WITH WITHDRAWAL, UNCOMPLICATED (8) Hand abrasion Code(s): S60.519A - ABRASION OF UNSPECIFIED HAND, INITIAL ENCOUNTER Qualifiers : Laterality: right (9) Alcoholic liver disease Code(s): K70.9 - ALCOHOLIC LIVER DISEASE, UNSPECIFIED (10) DM Diabetes mellitus type 2 Code(s): E11.9 - TYPE 2 DIABETES MELLITUS WITHOUT COMPLICATIONS (11) Acute hypoxemic respiratory failure Code(s): J96.01 - ACUTE RESPIRATORY FAILURE WITH HYPOXIA
[2016-11-03] MEDS: guaiFENesin/CODEINE 10 ML UNIT-DOSE CUPS PO PRN (13:24)
[2016-11-03] MEDS: IBUPROFEN 400 MG TABLET (FP) PO PRN (13:24)
--- NOTE | 2016-11-03 15:22 | PN ---
Progress Note, Physician History of Present Illness: doing much better just says he is weak - Current Medication List Current Medications: Active Medications Azithromycin (Zithromax 500mg Ivpb (Pre-Docked)) 500 mg IVPB DAILY [facility] Last Admin: 11/03/16 09:18 Dose: 500 mg Cefepime HCl (Maxipime 1gm Ivpb Pre-Docked) 1 gm IVPB Q8H [facility] PRN Reason: Protocol Last Admin: 11/03/16 08:31 Dose: 1 gm Folic Acid (Folic Acid -) 1 mg PO DAILY [facility] Last Admin: 11/03/16 09:19 Dose: 1 mg Guaifenesin/Codeine Phosphate (Robitussin Ac -) 10 ml PO Q8H PRN PRN Reason: COUGH Last Admin: 11/03/16 13:24 Dose: 10 ml Ibuprofen (Motrin -) 400 mg PO Q6H PRN PRN Reason: PAIN Last Admin: 11/03/16 13:24 Dose: 400 mg Insulin Aspart (Novolog Vial Sliding Scale -) 1 vial SQ BIDAC [facility] PRN Reason: Protocol Last Admin: 11/03/16 06:35 Dose: 4 units Multivitamins/Minerals/Vitamin C (Tab-A-Vit -) 1 tab PO DAILY [facility] Last Admin: 11/03/16 09:18 Dose: 1 tab Potassium Chloride (K-Dur -) 40 meq PO DAILY [facility] Last Admin: 11/03/16 09:16 Dose: 40 meq Prednisone (Deltasone -) 40 mg PO DAILY [facility] Last Admin: 11/03/16 09:18 Dose: 40 mg Thiamine HCl (Vitamin B1 -) 100 mg PO BID [facility] Last Admin: 11/03/16 09:18 Dose: 100 mg - Objective Vital Signs: Vital Signs Temperature 99.7 F H 11/03/16 11:39 Pulse Rate 85 11/03/16 11:39 Respiratory Rate 18 11/03/16 11:39 Blood Pressure 100/62 11/03/16 11:39 O2 Sat by Pulse Oximetry (%) 93 L 11/03/16 10:51 Constitutional: Yes: No Distress, Calm HENT: Yes: Atraumatic Neck: Yes: Supple, Trachea Midline Cardiovascular: Yes: Regular Rate and Rhythm Respiratory: Yes: Poor Air Entry, Rhonchi Gastrointestinal: Yes: Normal Bowel Sounds, Soft Musculoskeletal: Yes: WNL Extremities: Yes: WNL Wound/Incision: Yes: Clean/Dry Neurological: Yes: Alert, Oriented Psychiatric: Yes: Alert, Oriented Labs: CBC, BMP 10/31/16 11:45 10/31/16 11:45 INR, PTT INR 1.49 (0.82-1.09) H 10/29/16 08:05 Assessment/Plan Problem List Problem List - Problems (1) ETOH abuse Code(s): F10.10 - ALCOHOL ABUSE, UNCOMPLICATED (2) Head trauma Code(s): S09.90XA - UNSPECIFIED INJURY OF HEAD, INITIAL ENCOUNTER (3) Hypokalemia Code(s): E87.6 - HYPOKALEMIA (4) Hyponatremia Code(s): E87.1 - HYPO-OSMOLALITY AND HYPONATREMIA (5) Left upper lobe pneumonia Code(s): J18.1 - LOBAR PNEUMONIA, UNSPECIFIED ORGANISM (6) Sepsis associated hypotension Code(s): A41.9 - SEPSIS, UNSPECIFIED ORGANISM (7) Alcohol dependence with uncomplicated withdrawal Code(s): F10.230 - ALCOHOL DEPENDENCE WITH WITHDRAWAL, UNCOMPLICATED (8) Hand abrasion Code(s): S60.519A - ABRASION OF UNSPECIFIED HAND, INITIAL ENCOUNTER Qualifiers : Laterality: right (9) Alcoholic liver disease Code(s): K70.9 - ALCOHOLIC LIVER DISEASE, UNSPECIFIED (10) DM Diabetes mellitus type 2 Code(s): E11.9 - TYPE 2 DIABETES MELLITUS WITHOUT COMPLICATIONS (11) Acute hypoxemic respiratory failure Code(s): J96.01 - ACUTE RESPIRATORY FAILURE WITH HYPOXIA plan switch to oral abx tomorrow can give him augmentin 875 mg twice a day for another 5 days more incentive nati
[2016-11-03] MEDS ORDERED: PT OWN MED DRAWER 7, Y5N ONE (17:05)
[2016-11-03] MEDS ORDERED: INSULIN (NOVOLOG) ASPART 100 UNITS/ML 10ML VIAL ONE (17:05)
[2016-11-03] MEDS ORDERED: PNEUMOC 13-VAL CONJ-DIP CRM/PF 0.5 ML DISP.SYRIN IM ONE (17:19)
--- NOTE | 2016-11-03 18:47 | PN ---
Progress Note, Physician History of Present Illness: had mild fever this am - Current Medication List Current Medications: Active Medications Azithromycin (Zithromax 500mg Ivpb (Pre-Docked)) 500 mg IVPB DAILY [facility] Last Admin: 11/03/16 09:18 Dose: 500 mg Folic Acid (Folic Acid -) 1 mg PO DAILY [facility] Last Admin: 11/03/16 09:19 Dose: 1 mg Guaifenesin/Codeine Phosphate (Robitussin Ac -) 10 ml PO Q8H PRN PRN Reason: COUGH Last Admin: 11/03/16 13:24 Dose: 10 ml Ibuprofen (Motrin -) 400 mg PO Q6H PRN PRN Reason: PAIN Last Admin: 11/03/16 13:24 Dose: 400 mg Insulin Aspart (Novolog Vial Sliding Scale -) 1 vial SQ BIDAC [facility] PRN Reason: Protocol Last Admin: 11/03/16 16:58 Dose: 10 units Multivitamins/Minerals/Vitamin C (Tab-A-Vit -) 1 tab PO DAILY [facility] Last Admin: 11/03/16 09:18 Dose: 1 tab Potassium Chloride (K-Dur -) 40 meq PO DAILY [facility] Last Admin: 11/03/16 09:16 Dose: 40 meq Prednisone (Deltasone -) 40 mg PO DAILY [facility] Last Admin: 11/03/16 09:18 Dose: 40 mg Thiamine HCl (Vitamin B1 -) 100 mg PO BID [facility] Last Admin: 11/03/16 09:18 Dose: 100 mg - Objective Vital Signs: Vital Signs Temperature 99.3 F 11/03/16 15:32 Pulse Rate 76 11/03/16 15:32 Respiratory Rate 18 11/03/16 15:32 Blood Pressure 103/67 11/03/16 15:32 O2 Sat by Pulse Oximetry (%) 93 L 11/03/16 10:51 Constitutional: Yes: No Distress HENT: Yes: Atraumatic Neck: Yes: Supple Cardiovascular: Yes: Regular Rate and Rhythm Respiratory: Yes: CTA Bilaterally Gastrointestinal: Yes: Normal Bowel Sounds Extremities: Yes: WNL Neurological: Yes: Alert, Oriented Labs: CBC, BMP 10/31/16 11:45 10/31/16 11:45 INR, PTT INR 1.49 (0.82-1.09) H 10/29/16 08:05 Problem List - Problems (1) ETOH abuse Assessment/Plan: stable ON FOLIC ACID AND THIAMINE Code(s): F10.10 - ALCOHOL ABUSE, UNCOMPLICATED (2) Hypokalemia Assessment/Plan: RESOLVED Code(s): E87.6 - HYPOKALEMIA (3) Hyponatremia Assessment/Plan: RESOLVING Code(s): E87.1 - HYPO-OSMOLALITY AND HYPONATREMIA (4) Alcohol dependence with uncomplicated withdrawal Assessment/Plan: STABLE Code(s): F10.230 - ALCOHOL DEPENDENCE WITH WITHDRAWAL, UNCOMPLICATED (5) Alcoholic liver disease Code(s): K70.9 - ALCOHOLIC LIVER DISEASE, UNSPECIFIED (6) DM Diabetes mellitus type 2 Assessment/Plan: ON INSULIN WILL START METFORMIN Code(s): E11.9 - TYPE 2 DIABETES MELLITUS WITHOUT COMPLICATIONS (7) HTN (hypertension) Assessment/Plan: bp MEDS STILL ON HOLD Code(s): I10 - ESSENTIAL (PRIMARY) HYPERTENSION (8) Left upper lobe pneumonia Code(s): J18.1 - LOBAR PNEUMONIA, UNSPECIFIED ORGANISM Assessment/Plan DC IN AM IF STABLE
[2016-11-03] MEDS ORDERED: SODIUM CHLORIDE 250 ML IV SCH (19:30)
[2016-11-03] MEDS ORDERED: SODIUM CHLORIDE 250 ML IV ONE ×2 (21:45)
[2016-11-04] MEDS: CEFEPIME 1 GM/100 ML BAG PRE-DOCKED IVPB SCH ×2 (02:46→09:18)
[2016-11-04] MEDS: INSULIN SLIDING SCALE (NOVOLOG) 1 VIAL SQ SCH (06:35)
[2016-11-04] MEDS: predniSONE 20 MG TABLET (UD) PO SCH (09:18)
[2016-11-04] MEDS: POTASSIUM CHLORIDE TABS 20 MEQ TABLET.ER (FP) PO SCH (09:18)
[2016-11-04] MEDS: FOLIC ACID 1 MG TABLET (FP) PO SCH (09:18)
[2016-11-04] MEDS: MULTIVITAMINS (DAILY MVI) TABLET (FP) PO SCH (09:18)
[2016-11-04] MEDS: AZITHROMYCIN IVPB 500 MG/250 ML D5W PRE-DOCKED IVPB SCH (09:18)
[2016-11-04] MEDS: THIAMINE HCL 100 MG TABLET (FP) PO SCH (09:18)
[2016-11-04] MEDS: IBUPROFEN 400 MG TABLET (FP) PO PRN (10:41)
[2016-11-04 15:48] VITALS: BP 96/58; PULSE 89; TEMP 96.1
--- NOTE | 2016-11-04 16:59 | DS ---
Physical Examination Vital Signs: Vital Signs Temperature 96.1 F L 11/04/16 10:00 Pulse Rate 89 11/04/16 10:00 Respiratory Rate 18 11/04/16 10:00 Blood Pressure 96/58 11/04/16 10:00 O2 Sat by Pulse Oximetry (%) 93 L 11/03/16 21:00 Labs: CBC, BMP 10/31/16 11:45 10/31/16 11:45 Discharge Summary Reason For Visit: ALCOHOL ABUSE,HYPONATREMIA,HYPOKALEMIA - Instructions Diet, Activity, Other Instructions: see your doctor for blood pressure medicine..when to start? Referrals: Hira Loco [Primary Care Provider] - Disposition: HOME - Home Medications Comprehensive Discharge Medication List: Ambulatory Orders Metformin HCl [Glucophage -] 1,000 mg PO BID@0700,1630 #60 tablet 09/07/16 Albuterol 0.083% Nebulizer Flaca [Ventolin 0.083% Nebulizer Soln -] 1 amp NEB Q4H PRN #7 amp 11/02/16 Amoxicillin/Potassium Clav [Augmentin 875-125 Tablet] 1 each PO BID #14 tablet 11/02/16 Folic Acid - 1 mg PO DAILY #30 tablet 11/02/16 Guaifenesin AC [Robitussin AC -] 10 ml PO Q8H PRN #90 cap MDD 2 11/02/16 Multivitamins [Multivit (RH Formulary)] 1 tab PO DAILY #0 tab 11/02/16 Prednisone 10 mg PO DAILY #30 tablet 11/02/16 Thiamine HCl [Vitamin B1 -] 100 mg PO BID #60 tablet 11/02/16 [facility]
== END 2016-11-04 11:33 | disposition home or self-care (01) | DRG 775 ==
LOC: JER 11:12 → JERBED 15:03 → J5S 18:10
PROVIDERS: ADMIT Internal Medicine; ATTEND Internal Medicine
PROC: HZ2ZZZZ Detoxification Services for Substance Abuse Treatment (ICD-10-PCS; principal; 2016-10-26)
PROC: 3E0F7GC Introduction of Other Therapeutic Substance into Respiratory Tract, Via Natural or Artificial Opening (ICD-10-PCS; 2016-10-30)
DX: F10.229 Alcohol dependence with intoxication, unspecified (principal); E87.1 Hypo-osmolality and hyponatremia; E87.6 Hypokalemia; E11.9 Type 2 diabetes mellitus without complications; S09.90XA Unspecified injury of head, initial encounter; S00.11XA Contusion of right eyelid and periocular area, initial encounter; S63.91XA Sprain of unspecified part of right wrist and hand, initial encounter; Z91.81 History of falling; W06.XXXA Fall from bed, initial encounter; Y92.003 Bedroom of unspecified non-institutional (private) residence as the place of occurrence of the external cause; F10.230 Alcohol dependence with withdrawal, uncomplicated; Z79.84 Long term (current) use of oral hypoglycemic drugs; E86.0 Dehydration; R19.7 Diarrhea, unspecified; R11.2 Nausea with vomiting, unspecified; A41.9 Sepsis, unspecified organism; Y93.89 Activity, other specified; J69.0 Pneumonitis due to inhalation of food and vomit; J96.01 Acute respiratory failure with hypoxia; D69.6 Thrombocytopenia, unspecified; K70.9 Alcoholic liver disease, unspecified; Y90.6 Blood alcohol level of 120-199 mg/100 ml
CPT/HCPCS: 36415; 36600; 70450-TC; 71010-TC; 71020-TC; 71250-TC; 73110-TC-RT; 73130-TC-RT; 80048; 80053; 80307; 82150; 82803; 83605; 83690; 85025; 85027; 85610; 87040; 87070; 87205; 87324; 87449; 87899; 90670; 93005; 93010; 94640; 99284-25

== ENCOUNTER 2018-06-07 09:33 | Inpatient (IN) | payer OTHER ==
[2018-06-07 10:07] VITALS: BMI 32.5
--- NOTE | 2018-06-07 11:36 | HP ---
CIWA Score Nausea/Vomitin Muscle Tremors: 3 Anxiety: 2 Agitation: 2 Paroxysmal Sweats: 1-Minimal Palms Moist Orientation: 0-Oriented Tacttile Disturbances: 1-Very Mild Itch/Numbness Auditory Disturbances: 1-Very Mild Visual Disturbances: 0-None Headache: 2-Mild CIWA-Ar Total Score: 15 - Admission Criteria [facility] Guidelines: Admission for Medically Managed Detox: Requires at least one of the followin. CIWA greater than 12 2. Seizures within the past 24 hours 3. Delirium tremens within the past 24 hours 4. Hallucinations within the past 24 hours 5. Acute intervention needed for co occurring medical disorder 6. Acute intervention needed for co occurring psychiatric disorder 7. Severe withdrawal that cannot be handled at a lower level of care (continued vomiting, continued diarrhea, abnormal vital signs) requiring intravenous medication and/or fluids 8. Patient presents the following: CIWA greater than 12 Admission Criteria Met: Admission criteria met Admission ROS BHS - HPI Chief Complaint: i need help to stop drinking alcohol Allergies/Adverse Reactions: Allergies Allergy/AdvReac Type Severity Reaction Status Date / Time No Known Allergies Allergy Verified 06/07/18 11:27 History of Present Illness: this 52 years old male with alcohol dependence,seeking detox,withdrawal symptom, last treatment rehab 08/11/16 to 08/08/16 history of hypertension,type 2 dm fx of left bid toe and second toe left 6 months ago low back pain longest period of sobriety 1 year plan to go to custodial,out patient program Exam Limitations: No Limitations - Ebola screening Have you traveled outside of the country in the last 21 days: No Have you had contact with anyone from an Ebola affected area: No Have you been sick,other than usual withdrawal symptoms: No Do you have a fever: No - Review of Systems Constitutional: Loss of Appetite, Malaise, Night Sweats, Changes in sleep, Weakness EENT: reports: Nose Congestion Respiratory: reports: No Symptoms reported Cardiac: reports: No Symptoms Reported GI: reports: Nausea, Vomiting, Abdominal cramping : reports: No Symptoms Reported Musculoskeletal: reports: Back Pain, Muscle Pain Integumentary: reports: Dryness Neuro: reports: Headache, Tremors Endocrine: reports: No Symptoms Reported Hematology: reports: No Symptoms Reported Psychiatric: reports: No Sypmtoms Reported, Judgement Intact, Mood/Affect Appropiate Other Systems: Reviewed and Negative Patient History - Patient Medical History Hx Anemia: No Hx Asthma: No Hx Chronic Obstructive Pulmonary Disease (COPD): No Hx Cancer: No Hx Cardiac Disorders: No Hx Congestive Heart Failure: No Hx Hypertension: No Hx Hypercholesterolemia: No Hx Pacemaker: No HX Cerebrovascular Accident: No Hx Seizures: No Hx Dementia: No Hx Diabetes: Yes (type 2 dm) Hx Gastrointestinal Disorders: No Hx Liver Disease: No Hx Genitourinary Disorders: No Hx Sexually Transmitted Disorders: No Hx Renal Disease (ESRD): No Hx Thyroid Disease: No Hx Human Immunodeficiency Virus (HIV): No (2007- ) Hx Hepatitis C: No Hx Depression: Yes Hx Suicide Attempt: No Hx Bipolar Disorder: No Hx Schizophrenia: No Other Medical History: no suicidal,no homicidal - Patient Surgical History Past Surgical History: No Hx Neurologic Surgery: No Hx Cataract Extraction: No Hx Cardiac Surgery: No Hx Lung Surgery: No Hx Breast Surgery: No Hx Breast Biopsy: No Hx Abdominal Surgery: No Hx Appendectomy: No Hx Cholecystectomy: No Hx Genitourinary Surgery: No Hx Section: No Hx Orthopedic Surgery: No Hx Hysterectomy: No Anesthesia Reaction: No - PPD History Previous Implant?: Yes Documented Results: Negative w/o proof Implanted On Prior R Admission?: Yes Date: 08/08/16 Results: 0 MM PPD to be Administered?: Yes - Smoking Cessation Smoking history: Never smoked Have you smoked in the past 12 months: No Aproximately how many cigarettes per day: 0 Cigars Per Day: 0 Hx Chewing Tobacco Use: No - Substance & Tx. History Hx Alcohol Use: Yes Hx Substance Use: No Substance Use Type: Alcohol Hx Substance Use Treatment: Yes (rehab 08/11/16 to 09/07/16 rehab) - Substances Abused Alcohol Route: Oral Frequency: Daily Amount used: 3 22 oz beers Age of first use: 14 Date of Last Use: 06/07/18 Family Disease History - Family Disease History Family Disease History: Other: Father (ETOH DEPENDENCE ) Admission Physical Exam BHS - Vital Signs Vital Signs: Vital Signs - 24 hr 06/07/18 10:05 Temperature 97.9 F Pulse Rate 93 H Respiratory 20 Rate Blood Pressure 135/74 - Physical General Appearance: Yes: Moderate Distress, Tremorous, Irritable, Sweating, Anxious HEENTM: Yes: Normal ENT Inspection, LEONARDO, Pharynx Normal Respiratory: Yes: Lungs Clear, Normal Breath Sounds, No Respiratory Distress Neck: Yes: Within Normal Limits, Supple, Trachea in good position Breast: Yes: Within Normal Limits Cardiology: Yes: Within Normal Limits, Regular Rhythm, S1, S2 Abdominal: Yes: Within Normal Limits, Normal Bowel Sounds, Non Tender, Soft Genitourinary: Yes: Within Normal Limits Back: Yes: Muscle Spasm Musculoskeletal: Yes: Back pain, Muscle Pain Extremities: Yes: Normal Range of Motion, Tremors 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, Fully Oriented, Alert, Motor Strength 5/5 Integumentary: Yes: Dry - Diagnostic (1) Alcohol dependence with uncomplicated withdrawal Current Visit: No Status: Acute (2) HTN (hypertension) Current Visit: No Status: Chronic (3) DM2 (diabetes mellitus, type 2) Current Visit: Yes Status: Acute (4) Toes fractured Current Visit: Yes Status: Acute Cleared for Admission [facility] - Detox or Rehab [facility] Level of Care: Medically Managed Detox Regimen/Protocol: Librium S Breath Alcohol Content Breath Alcohol Content: 0.134 Urine Drug Screen - Results Drug Screen Negative: No Urine Drug Screen Results: THC-Marijuana Inpatient Rehab Admission - Rehab Decision to Admit Inpatient rehab admission?: No
[2018-06-07] MEDS ORDERED: chlordiazePOXIDE HCL 25 MG CAPSULE PO PRN (12:02)
[2018-06-07] MEDS ORDERED: MAG HYDROX/AL HYDROX/SIMETH 30 ML UNIT-DOSE CUP PO PRN (12:02)
[2018-06-07] MEDS ORDERED: IBUPROFEN 400 MG TABLET (FP) PO PRN (12:02)
[2018-06-07] MEDS ORDERED: MAGNESIUM HYDROX 2400MG/30ML ORAL SUSPENSION 30 ML CUP PO PRN (12:02)
[2018-06-07] MEDS ORDERED: P-EPHED 60MG/TRIPROLIDI 2.5MG TABLET PO PRN (12:02)
[2018-06-07] MEDS ORDERED: LOPERAMIDE HCL 2 MG CAPSULE PO PRN (12:02)
[2018-06-07] MEDS ORDERED: hydrOXYzine PAMOATE 50 MG CAPSULE (FP) PO PRN (12:02)
[2018-06-07] MEDS ORDERED: MAGNESIUM CITRATE 300 ML BOTTLE PO PRN (12:02)
[2018-06-07] MEDS ORDERED: ACETAMINOPHEN 325 MG TABLET (FP) PO PRN (12:02)
[2018-06-07] MEDS ORDERED: guaiFENesin/D-METHORPHAN HB 10 ML UNIT-DOSE CUPS PO PRN (12:02)
[2018-06-07] MEDS ORDERED: MENTHOL/PHENOL 1 EACH UD MM PRN (12:02)
[2018-06-07] MEDS: ENALAPRIL MALEATE 5 MG TABLET (FP) PO SCH (14:24)
[2018-06-07] MEDS: metFORMIN HCL 500 MG TABLET (FP) PO SCH (17:00)
[2018-06-07] MEDS: chlordiazePOXIDE HCL 25 MG CAPSULE PO SCH ×2 (17:00→22:11)
[2018-06-07] MEDS ORDERED: MELATONIN 5 MG TABLETS PO PRN (22:00)
[2018-06-07] MEDS: THIAMINE HCL 100 MG TABLET (FP) PO SCH (22:11)
[2018-06-08] MEDS: chlordiazePOXIDE HCL 25 MG CAPSULE PO SCH ×4 (06:12→22:26)
[2018-06-08] MEDS: metFORMIN HCL 500 MG TABLET (FP) PO SCH ×2 (06:13→18:02)
[2018-06-08] MEDS: PRENATAL VITAMINS W/ FOLIC ACID TABLET (FP) PO SCH (10:23)
[2018-06-08] MEDS: CHOLECALCIFEROL (VITAMIN D3) 1,000 UNIT TABLET (FP) PO SCH (10:23)
[2018-06-08] MEDS: ENALAPRIL MALEATE 5 MG TABLET (FP) PO SCH (10:23)
[2018-06-08 10:50] LABS: HEMOGLOBIN 12.9 GM/dL (11.7-16.9); MCH 31.5 pg (25.7-33.7); MCHC 33.9 g/dl (32.0-35.9); MEAN PLT VOLUME 11.4 fl (7.5-11.1); PLATELET COUNT 79 K/MM3 (134-434); RBC 4.09 M/mm3 (4.00-5.60); RDW 15.6 % (11.9-15.9); WHITE BLOOD COUNT 9.4 K/mm3 (4.0-10.0)
[2018-06-08 11:03] LABS: ALBUMIN 2.4 g/dl (3.4-5.0); ALK PHOS 578 U/L (45-117); ANION GAP 5 MMOL/L (8-16); BLOOD UREA NITROGEN 7 mg/dL (7-18); CALCIUM 7.8 mg/dL (8.5-10.1); CHLORIDE 104 mmol/L (98-107); CO2 27 mmol/L (21-32); CREATININE 0.6 mg/dL (0.55-1.3); GLUCOSE,RANDOM 278 mg/dL (74-106); POTASSIUM 3.6 mmol/L (3.5-5.1); SGOT/AST 90 U/L (15-37); SGPT/ALT 49 U/L (13-61); SODIUM 136 mmol/L (136-145); TOT PROT 7.9 g/dl (6.4-8.2)
--- NOTE | 2018-06-08 11:29 | PN ---
S CIWA - CIWA Score Nausea/Vomitin-No Nausea/No Vomiting Muscle Tremors: 3 Anxiety: 3 Agitation: 3 Paroxysmal Sweats: 3 Orientation: 0-Oriented Tacttile Disturbances: 0-None Auditory Disturbances: 0-None Visual Disturbances: 0-None Headache: 0-None Present CIWA-Ar Total Score: 12 BHS Progress Note (SOAP) Subjective: sweats shakes interrupted sleep legs/feet pain Objective: 06/08/18 11:27 Vital Signs Temperature 98.7 F 06/08/18 06:27 Pulse Rate 97 H 06/08/18 06:30 Respiratory Rate 06/08/18 06:30 Blood Pressure 140/84 06/08/18 06:27 O2 Sat by Pulse Oximetry (%) Laboratory Tests 06/07/18 06/07/18 06/08/18 11:46 16:27 05:45 WBC 9.4 RBC 4.09 Hgb 12.9 Hct 38.0 MCV 93.0 MCH 31.5 MCHC 33.9 RDW 15.6 Plt Count 79 L D MPV 11.4 H D Sodium Potassium Chloride Carbon Dioxide Anion Gap BUN Creatinine Creat Clearance w eGFR POC Glucometer 177 333 Random Glucose Calcium Total Bilirubin AST ALT Alkaline Phosphatase Total Protein Albumin RPR Titer 06/08/18 06/08/18 06/08/18 05:45 05:45 06:11 WBC RBC Hgb Hct MCV MCH MCHC RDW Plt Count MPV Sodium 136 Potassium 3.6 Chloride 104 Carbon Dioxide 27 Anion Gap 5 L BUN 7 Creatinine 0.6 Creat Clearance w eGFR > 60 POC Glucometer 200 Random Glucose 278 H Calcium 7.8 L Total Bilirubin 1.0 AST 90 H ALT 49 Alkaline Phosphatase 578 H Total Protein 7.9 Albumin 2.4 L RPR Titer Nonreactive aaox3 ambulating no acute distress Assessment: 06/08/18 11:28 withdrawal sx Plan: continue detox increase fluids motrin/tylenol prn
[2018-06-08] MEDS: THIAMINE HCL 100 MG TABLET (FP) PO SCH (22:26)
[2018-06-09] MEDS: metFORMIN HCL 500 MG TABLET (FP) PO SCH ×2 (06:50→16:50)
[2018-06-09] MEDS: chlordiazePOXIDE HCL 25 MG CAPSULE PO SCH ×2 (06:50→10:31)
[2018-06-09] MEDS: CHOLECALCIFEROL (VITAMIN D3) 1,000 UNIT TABLET (FP) PO SCH (10:31)
[2018-06-09] MEDS: PRENATAL VITAMINS W/ FOLIC ACID TABLET (FP) PO SCH (10:31)
[2018-06-09] MEDS: ENALAPRIL MALEATE 5 MG TABLET (FP) PO SCH (10:31)
--- NOTE | 2018-06-09 12:00 | EKG ---
Test Reason : Blood Pressure : / mmHG Vent. Rate : 080 BPM Atrial Rate : 080 BPM P-R Int : 172 ms QRS Dur : 108 ms QT Int : 414 ms P-R-T Axes : 010 032 029 degrees QTc Int : 477 ms NORMAL SINUS RHYTHM NORMAL ECG WHEN COMPARED WITH ECG OF 26-OCT-2016 17:35, QT HAS SHORTENED Confirmed by JAIME ELIZABETH MD ([id number]) on 06/09/2018 12:00:14 PM Referred By: Amber GREEN MD Confirmed By:JAIME ELIZABETH MD
--- NOTE | 2018-06-09 13:12 | PN ---
S CIWA - CIWA Score Nausea/Vomitin-No Nausea/No Vomiting Muscle Tremors: 3 Anxiety: 3 Agitation: 3 Paroxysmal Sweats: 2 Orientation: 0-Oriented Tacttile Disturbances: 0-None Auditory Disturbances: 0-None Visual Disturbances: 0-None Headache: 0-None Present CIWA-Ar Total Score: 11 BHS Progress Note (SOAP) Subjective: sweats shakes interrupted sleep body aches right hand wound Objective: 06/09/18 13:08 Vital Signs Temperature 97.2 F L 06/09/18 09:27 Pulse Rate 82 06/09/18 09:27 Respiratory Rate 18 06/09/18 09:27 Blood Pressure 135/70 06/09/18 09:27 O2 Sat by Pulse Oximetry (%) Laboratory Tests 06/07/18 06/07/18 06/08/18 11:46 16:27 05:45 WBC 9.4 RBC 4.09 Hgb 12.9 Hct 38.0 MCV 93.0 MCH 31.5 MCHC 33.9 RDW 15.6 Plt Count 79 L D MPV 11.4 H D Sodium Potassium Chloride Carbon Dioxide Anion Gap BUN Creatinine Creat Clearance w eGFR POC Glucometer 177 333 Random Glucose Calcium Total Bilirubin AST ALT Alkaline Phosphatase Total Protein Albumin RPR Titer 06/08/18 06/08/18 06/08/18 05:45 05:45 06:11 WBC RBC Hgb Hct MCV MCH MCHC RDW Plt Count MPV Sodium 136 Potassium 3.6 Chloride 104 Carbon Dioxide 27 Anion Gap 5 L BUN 7 Creatinine 0.6 Creat Clearance w eGFR > 60 POC Glucometer 200 Random Glucose 278 H Calcium 7.8 L Total Bilirubin 1.0 AST 90 H ALT 49 Alkaline Phosphatase 578 H Total Protein 7.9 Albumin 2.4 L RPR Titer Nonreactive 06/08/18 06/09/18 16:35 06:25 WBC RBC Hgb Hct MCV MCH MCHC RDW Plt Count MPV Sodium Potassium Chloride Carbon Dioxide Anion Gap BUN Creatinine Creat Clearance w eGFR POC Glucometer 247 125 Random Glucose Calcium Total Bilirubin AST ALT Alkaline Phosphatase Total Protein Albumin RPR Titer aaox3 ambulating no acute distress Assessment: 06/09/18 13:08 withdrawal sx right hand fourth digit noted with sutures intact in the healing process. encouraged pt to apply bacitracin and remain covered with gauze applied by RN. encouraged pt to try not to extend finger too much so wound can heal. pt in agreement. no s/s of infection noted; however bacitracin ointment ordered prophylactic to prevent infection. Plan: continue detox increase fluids
[2018-06-09] MEDS: BACITRACIN 0.9 GM PACKET TP SCH ×2 (14:52→23:09)
[2018-06-09] MEDS: chlordiazePOXIDE 5 MG CAPSULE PO SCH ×2 (17:43→23:09)
[2018-06-09] MEDS: THIAMINE HCL 100 MG TABLET (FP) PO SCH (23:09)
[2018-06-10] MEDS: chlordiazePOXIDE 5 MG CAPSULE PO SCH (05:20)
[2018-06-10] MEDS: metFORMIN HCL 500 MG TABLET (FP) PO SCH ×2 (06:16→17:10)
--- NOTE | 2018-06-10 10:33 | PN ---
BHS Progress Note (SOAP) Subjective: sleepy sweats Objective: 06/10/18 10:33 Vital Signs Temperature 98.7 F 06/10/18 08:57 Pulse Rate 107 H 06/10/18 08:57 Respiratory Rate 18 06/10/18 08:57 Blood Pressure 109/64 06/10/18 08:57 O2 Sat by Pulse Oximetry (%) aaox3 ambulating no acute distress Assessment: 06/10/18 10:33 mild withdrawal sx Plan: continue detox increase fluids d/c in am
[2018-06-10] MEDS: CHOLECALCIFEROL (VITAMIN D3) 1,000 UNIT TABLET (FP) PO SCH (11:00)
[2018-06-10] MEDS: PRENATAL VITAMINS W/ FOLIC ACID TABLET (FP) PO SCH (11:00)
[2018-06-10] MEDS: BACITRACIN 0.9 GM PACKET TP SCH ×2 (11:00→23:18)
[2018-06-10] MEDS: ENALAPRIL MALEATE 5 MG TABLET (FP) PO SCH (11:00)
[2018-06-10] MEDS ORDERED: chlordiazePOXIDE HCL 10 MG CAPSULE PO SCH (17:00)
[2018-06-10] MEDS: THIAMINE HCL 100 MG TABLET (FP) PO SCH (23:18)
[2018-06-11] MEDS: metFORMIN HCL 500 MG TABLET (FP) PO SCH (06:54)
[2018-06-11 10:12] VITALS: BP 107/69; PULSE 110; TEMP 97.9
--- NOTE | 2018-06-11 16:06 | DS ---
[facility] Detox Discharge Summary Admission Date: 06/07/18 Discharge Date: 06/11/18 - History Present History: Alcohol Dependence Additional Comments: PT COMPLETED DETOX. REPORTS HE HAS A PRIMARY CARE DOCTOR, DR JEREL GARCIAS AT [place], [place] FOR MEDICAL MANAGEMENT. PT REPORTS HE HAS OWN MEDS IN SECURITY. PT MET WITH COUNSELOR LORIN BEFORE EXITING. Pertinent Past History: HTN DM - Physical Exam Results Vital Signs: Vital Signs Temperature 97.9 F 06/11/18 10:11 Pulse Rate 110 H 06/11/18 10:11 Respiratory Rate 06/11/18 10:11 Blood Pressure 107/69 06/11/18 10:11 O2 Sat by Pulse Oximetry (%) Pertinent Admission Physical Exam Findings: WITHDRAWAL SX Laboratory Results - last 24 hr 06/10/18 06/11/18 16:26 06:11 POC Glucometer 268 108 Laboratory Tests 06/07/18 06/07/18 06/08/18 11:46 16:27 05:45 WBC 9.4 RBC 4.09 Hgb 12.9 Hct 38.0 MCV 93.0 MCH 31.5 MCHC 33.9 RDW 15.6 Plt Count 79 L D MPV 11.4 H D Sodium Potassium Chloride Carbon Dioxide Anion Gap BUN Creatinine Creat Clearance w eGFR POC Glucometer 177 333 Random Glucose Calcium Total Bilirubin AST ALT Alkaline Phosphatase Total Protein Albumin RPR Titer 06/08/18 06/08/18 06/08/18 05:45 05:45 06:11 WBC RBC Hgb Hct MCV MCH MCHC RDW Plt Count MPV Sodium 136 Potassium 3.6 Chloride 104 Carbon Dioxide 27 Anion Gap 5 L BUN 7 Creatinine 0.6 Creat Clearance w eGFR > 60 POC Glucometer 200 Random Glucose 278 H Calcium 7.8 L Total Bilirubin 1.0 AST 90 H ALT 49 Alkaline Phosphatase 578 H Total Protein 7.9 Albumin 2.4 L RPR Titer Nonreactive 06/08/18 06/09/18 06/09/18 16:35 06:25 16:30 WBC RBC Hgb Hct MCV MCH MCHC RDW Plt Count MPV Sodium Potassium Chloride Carbon Dioxide Anion Gap BUN Creatinine Creat Clearance w eGFR POC Glucometer 247 125 209 Random Glucose Calcium Total Bilirubin AST ALT Alkaline Phosphatase Total Protein Albumin RPR Titer 06/10/18 06/10/18 06/11/18 05:23 16:26 06:11 WBC RBC Hgb Hct MCV MCH MCHC RDW Plt Count MPV Sodium Potassium Chloride Carbon Dioxide Anion Gap BUN Creatinine Creat Clearance w eGFR POC Glucometer 130 268 108 Random Glucose Calcium Total Bilirubin AST ALT Alkaline Phosphatase Total Protein Albumin RPR Titer - Treatment Hospital Course: Detox Protocol Followed, Detoxed Safely, Responded well, Discharged Condition Good - Medication Discharge Medications: Ambulatory Orders metFORMIN HCL [Glucophage -] 1,000 mg PO BID@0700,1630 #60 tablet 09/07/16 Cholecalciferol (Vitamin D3) [Vitamin D3] 2,000 unit PO DAILY 06/07/18 Enalapril Maleate [Vasotec -] 5 mg PO DAILY 06/07/18 Thiamine Mononitrate [Vitamin B-1] 100 mg PO DAILY 06/07/18 - Diagnosis (1) Alcohol dependence with uncomplicated withdrawal Status: Acute (2) DM Diabetes mellitus type 2 Status: Chronic (3) HTN (hypertension) Status: Chronic - AMA Did Patient Leave Against Medical Advice: No
== END 2018-06-11 10:22 | disposition home or self-care (01) | DRG 775 ==
LOC: YASAS 09:33 → Y6N 12:21
PROVIDERS: ADMIT Surgery; ATTEND Surgery
PROC: HZ2ZZZZ Detoxification Services for Substance Abuse Treatment (ICD-10-PCS; principal; 2018-06-07)
DX: F10.230 Alcohol dependence with withdrawal, uncomplicated (principal); I10 Essential (primary) hypertension; E11.9 Type 2 diabetes mellitus without complications; Z79.84 Long term (current) use of oral hypoglycemic drugs
CPT/HCPCS: 36415; 80053; 82962; 85027; 86593; 93005; 93010